=== PATIENT | female | born 1940 | race Caucasian/White ===

== ENCOUNTER 2016-11-18 22:59 | Emergency (ER) | payer MEDICARE ==
[2016-11-18] MEDS ORDERED: fentaNYL* 50 MCG/ML 2 ML VIAL (100 MCG VIAL) ONE (23:17)
[2016-11-18] MEDS ORDERED: HYDROmorphone INJ* 1 MG/ML CARPUJECT SYRINGE IV SLOW PU ONE (23:47)
[2016-11-19] MEDS ORDERED: HYDROmorphone INJ* 1 MG/ML CARPUJECT SYRINGE IV SLOW PU ONE (00:45)
[2016-11-19] MEDS ORDERED: HYDROcodone/ACETAMIN 5-325 MG* 1 TAB PO ONE ×2 (00:46→00:56)
--- NOTE | 2016-11-19 01:01 | ED ---
I, Jacek,Michael, scribed for Porfirio Summers MD on 11/18/16 at 2318 . Upper Extremity Pain - HPI Summary HPI Summary: This 76 y/o male presents to ED for acute RUE arm and wrist pain after a mechanical fall this evening. She was putting her boots when she lost her balance and fell backward. Obvious deformity is noted at right wrist. Any movement and palpation make the pain worse. Pt is right handed. PMHx includes EtOH dependence, DM type II, asthma, depression, and migraine. Pt lives with . - History of Current Complaint Chief Complaint: ED Stated Complaint: FALL/WRIST AND ARM INJURY Time Seen by Provider: 11/18/16 23:08 Hx Obtained From: Patient Mechanism Of Injury: Twisted Onset/Duration: Started Hours Ago, Still Present Timing: Constant Severity Initially: Severe Severity Currently: Severe Pain Location: Wrist - right Character: Sharp Aggravating Factor(s): Movement Alleviating Factor(s): Rest Associated Signs & Symptoms: Positive: Other - obvious deformity - Allergies/Home Medications Allergies/Adverse Reactions: Allergies Allergy/AdvReac Type Severity Reaction Status Date / Time Adhesive Tape Allergy Unknown Verified 07/20/16 02:46 Reaction Details Flu Virus Vaccine Allergy Rash And Verified 07/20/16 02:46 Itching Latex Allergy Rash Verified 07/20/16 02:46 Morphine Allergy Hives Verified 07/20/16 02:46 Sulfa Antibiotics Allergy hive Verified 07/20/16 02:46 Hydrocodone AdvReac HALLUCINATIONS, Verified 07/20/16 02:46 VERY UNPLEASANT FEELING ENVIRONMENTAL/SEASONAL Allergy SNEEZING, Uncoded 07/20/16 02:46 ALLERGY WATERY ITCHY EYES, RUNNY NOSE PMH/Surg Hx/FS Hx/Imm Hx Endocrine/Hematology History: Reports: Hx Diabetes Denies: Hx Anemia Cardiovascular History: Reports: Hx Angina, Hx Hypercholesterolemia Denies: Hx Hypertension, Hx Myocardial Infarction Respiratory History: Reports: Hx Asthma GI History: Reports: Hx Gastroesophageal Reflux Disease, Hx Ulcer Denies: Hx Jaundice Musculoskeletal History: Reports: Hx Arthritis, Hx Back Problems, Other Musculoskeletal History - total knee replacement scheduled for week of Nov 13 Denies: Hx Rheumatoid Arthritis, Hx Osteoporosis, Hx Scoliosis Sensory History: Reports: Hx Cataracts, Hx Contacts or Glasses Denies: Hx Hearing Aid Opthamlomology History: Reports: Hx Cataracts, Hx Contacts or Glasses Neurological History: Reports: Hx Migraine - CONTROL WITH MEDS, Hx Transient Ischemic Attacks (TIA) Denies: Hx Headaches, Hx Seizures, Other Neuro Impairments/Disorders Psychiatric History: Reports: Hx Anxiety - CONTROL WITH MEDS, Hx Depression - CONTROL WITH MEDS, Hx Substance Abuse - ALCOHOL, NONE SINCE 2013 - Cancer History Cancer Type, Location and Year: breast Hx Chemotherapy: Yes - Surgical History Surgery Procedure, Year, and Place: 1989 & 1999 BILATERAL MASTECTOMY, [place]. 2011 BILATERAL CATARACT EXTRACTION WITH IOL IMPLANT, [place]. 1969 BILATERAL TUBAL LIGATION, [place]. 1983 HYSTERECTOMY, [place]. 2005 LEFT HIP REPLACEMENT, [place] Hx Anesthesia Reactions: No Infectious Disease History: No Infectious Disease History: Denies: Traveled Outside the in Last 30 Days - Family History Known Family History: Positive: Diabetes, Other - CVA - Social History Alcohol Use: None Hx Substance Use: No Substance Use Type: Reports: None Substance Use Comment - Amount & Last Used: 2012 Hx Tobacco Use: Yes Smoking Status (MU): Former Smoker Type: Cigarettes Amount Used/How Often: SMOKED IN THE 1959'S WHILE IN COLLEGE Have You Smoked in the Last Year: No Review of Systems Negative: Fever Positive: Other - right wrist pain s/p mechanical fall Negative: Anxious, Depressed All Other Systems Reviewed And Are Negative: Yes Physical Exam - Summary Physical Exam Summary: General: Comfortable, pleasant, alert HEENT: Moist mucosa Neck: soft, supple, no adenopathy, no edema Heart: S1, S2, RRR, no murmurs, rubs, or gallops Lungs: Clear to auscultation, breathing comfortable, no wheezes or rales Abdominal: Soft, flat, nontender Extremities: No edema, no calf tenderness. No tenderness at right clavical, proximal humerus, and elbow. Deformity at distal right wrist. Russian Teacher causes pain. Pulse is intact. Negative cyanosis. Neuro: Alert and oriented x 3 Psych: Logical, coherent Triage Information Reviewed: Yes Vital Signs On Initial Exam: Initial Vitals Temp Pulse Resp BP Pulse Ox 98.2 F 96 16 178/65 97 11/18/16 23:02 11/18/16 23:02 11/18/16 23:02 11/18/16 23:02 11/18/16 23:02 Vital Signs Reviewed: Yes Procedures - Splinting Location: right wrist Splint: ulnar Pre-Proc Neuro Vasc Exam: normal Post-Proc Neuro Vasc Exam: normal Diagnostics - Vital Signs Vital Signs Temp Pulse Resp BP Pulse Ox 11/18/16 23:02 98.2 F 96 16 178/65 97 - Laboratory Lab Statement: Any lab studies that have been ordered have been reviewed, and results considered in the medical decision making process. - Radiology Right wrist Xray Interpretation: Positive (See Comments) - Distal radial and ulnar fx. Radiology Interpretation Completed By: ED Physician Re-Evaluation - Re-Evaluation First Eval Re-Evaluation Time: 00:30 Change: Improved Comment: MD in room to update pt on X-ray imagings. Plan of care involving splinting and outpatient f/u with ortho is discussed. Pt and daughter present at bedside are agreeable. Course/Dx - Course Assessment/Plan: Simple mecahical fall. FOOSH injury of right wrist. She has both distal radial and distal ulnar fx, but neurovascularly intact at RUE. She was splinted with orthoglass and sugar tongue. She will f/u with her own orthopedic doctor. - Diagnoses Provider Diagnoses: Fracture of right distal radius, Right distal ulnar fracture Discharge - Discharge Plan Condition: Fair Disposition: HOME Prescriptions: HYDROcodone/ACETAMIN 5-325 MG* [[place] 5-325 TAB*] 1 tab PO Q6H PRN #12 tab MDD 4 PRN Reason: Pain Patient Education Materials: Wrist Fracture in Adults (ED), Splint Care (ED) Referrals: Wil Little MD [Medical Doctor] - The documentation as recorded by the Jacek blanco Soohyun accurately reflects the service I personally performed and the decisions made by , Porfirio Summers MD.
[2016-11-19 01:37] VITALS: BP 142/72
--- NOTE | 2016-11-19 07:51 | RAD ---
HISTORY: Fall, wrist deformity, right wrist COMPARISONS: None VIEWS: 3, Frontal, lateral, and oblique views of the right wrist FINDINGS: BONE DENSITY: Normal. BONES: There is a comminuted and slightly dorsally angulated fracture of the distal radial metaphysis with articular extension. There is a nondisplaced fracture of the styloid process of the ulna JOINTS: There is osteoporosis of the first CMC and MCP and scaphoid-trapezium articulations. ALIGNMENT: There is no dislocation. SOFT TISSUES: Unremarkable. OTHER FINDINGS: None. IMPRESSION: COMMINUTED SLIGHTLY DORSALLY ANGULATED FRACTURE OF THE DISTAL RADIAL METAPHYSIS. NONDISPLACED FRACTURE OF THE STYLOID PROCESS OF THE ULNA
== END 2016-11-19 01:25 | disposition home or self-care (01) ==
LOC: ED 22:59
DX: S52.501A Unspecified fracture of the lower end of right radius, initial encounter for closed fracture (principal); S52.601A Unspecified fracture of lower end of right ulna, initial encounter for closed fracture; M25.531 Pain in right wrist; Z87.891 Personal history of nicotine dependence; W19.XXXA Unspecified fall, initial encounter; Y93.9 Activity, unspecified; Y92.9 Unspecified place or not applicable
CPT/HCPCS: 96374; 96375; 99283; J1170; J3010

== ENCOUNTER 2016-11-27 08:05 | Day surgery (SDC) | payer MEDICARE ==
[~2016-11-27 08:05] MED LIST: Buffered Lidocaine 1% SYR 3ML* 3 ML/SYR SYRINGE INTRADERM ONE; Famotidine IV* 10 MG/ML 2 ML (20 mg) IV ONE
[2016-11-27] MEDS ORDERED: Famotidine IV* 10 MG/ML 2 ML (20 mg) ONE (08:16)
[2016-11-27] MEDS ORDERED: ceFAZolin 2 GM PREMIX (*) 2 GM/50 ML BAG IVPB ONE (08:16)
[2016-11-27] MEDS ORDERED: Lidocaine 1% INJ* 10 MG/ML 30 ML SDV ONE (08:52)
[2016-11-27] MEDS ORDERED: Propofol* 10 MG/ML 20 ML BTL IV PUSH ONE ×2 (08:53→09:43)
[2016-11-27] MEDS ORDERED: fentaNYL* 50 MCG/ML 2 ML VIAL (100 MCG VIAL) ONE ×2 (08:53→10:41)
[2016-11-27] MEDS ORDERED: Midazolam* 1 MG/ML 2 ML VIAL (2 MG) ONE (08:53)
[2016-11-27] MEDS ORDERED: KETAMINE HCL* 50 MG/ML 10 ML VIAL ONE (08:54)
[2016-11-27] MEDS ORDERED: Ketorolac INJ* 30 MG/ML 1 ML VIAL ONE (08:54)
[2016-11-27] MEDS ORDERED: Bupivacaine 0.5% SDV PF* 30 ML VIAL ONE (09:05)
[2016-11-27] MEDS ORDERED: DiMENhydriNATE IV* 50 MG/ML VIAL IV PUSH PRN (09:52)
[2016-11-27] MEDS: fentaNYL* 50 MCG/ML 2 ML VIAL (100 MCG VIAL) IV PRN ×2 (10:42→10:52)
[2016-11-27 11:32] VITALS: BP 155/76
--- NOTE | 2016-11-28 00:39 | OP ---
DATE OF OPERATION: 11/27/16 [facility] DATE OF : 42 SURGEON: Dr. Whalen. SKEIN MERCERIZING MACHINE OPERATOR: LOU Slater ANESTHESIOLOGIST: Rahul Romero MD ANESTHESIA: General. PRE-OP DIAGNOSIS: Right distal radius fracture. POST-OP DIAGNOSIS: Right distal radius fracture. OPERATIVE PROCEDURE: Open reduction internal fixation of the right distal radius. ESTIMATED BLOOD LOSS: Zero. TOURNIQUET TIME: About 30 minutes. INDICATIONS FOR PROCEDURE: Lola is a 76-year-old woman who fell onto her outstretched right hand. She suffered a fracture of the distal radius. There is apex volar angulation and the options of casting and surgery were discussed with the patient. She has opted for surgery. The surgical procedure, risks, and benefits were explained to her prior to the procedure. DESCRIPTION OF PROCEDURE: The patient was brought to the operating room, was given general anesthetic and placed in a supine position on the operating room table with the tourniquet around her right upper arm. The skin of her right upper extremity was prepped and dapped in the usual sterile fashion. The area of the incision was infiltrated with 10 cc of Marcaine 0.5% plain. A longitudinal incision was made centered over the FCR tendon and we dissected sharply through the superficial and deep portions of the tendon sheath. The FPL muscle was then retracted and then the pronator quadratus was incised and subperiosteally dissected off of the distal radius. The fracture fragments were reduced and then a plate from the Synthes 2.4 variable angle set was secured with one proximal screw. The hardware and fracture fragments were checked on the C-arm in the AP and lateral views and found to be in good position, so 4 distal screws were placed and then two additional proximal screws. All of the hardware was checked on the C-arm in the AP and lateral views and found to be in satisfactory position. The wound was copiously irrigated with saline. The pronator quadratus was repaired over the plate and then the deep portion of the FCR tendon sheath was repaired with 2-0 Polysorb suture. The skin was closed with 4-0 nylon suture and then the wound was dressed with Xeroform, 4x 4, Webril, and a volar splint in some flexion. The patient also has an ulnar styloid fracture which remained nondisplaced. The patient tolerated the procedure well and was brought to the recovery room in good condition after awakening from general anesthesia. [id number]/[facility] #: [id number] [place]
--- NOTE | 2016-11-28 12:11 | RAD ---
CPT II Codes: 6045F INDICATION: Right distal radius fracture TECHNIQUE: Intraoperative fluoroscopy was provided during plate and screw fixation of a distal radius fracture. FINDINGS: 2 spot films depict plate and screw fixation of a distal radius fracture. Fluoroscopy time: 27 seconds IMPRESSION: As above.
== END 2016-11-27 12:01 | disposition home or self-care (01) ==
LOC: OREAST 08:05
PROVIDERS: ATTEND Orthopaedic Surgery
DX: S52.551A Other extraarticular fracture of lower end of right radius, initial encounter for closed fracture (principal); E11.8 Type 2 diabetes mellitus with unspecified complications; Z79.4 Long term (current) use of insulin; J45.909 Unspecified asthma, uncomplicated; Z68.36 Body mass index [BMI] 36.0-36.9, adult; Z87.891 Personal history of nicotine dependence; W19.XXXA Unspecified fall, initial encounter; Y92.9 Unspecified place or not applicable
CPT/HCPCS: 76000; C1713; C1776; J0690; J1885; J2250; J2704; J3010

== ENCOUNTER 2018-03-13 10:25 | Inpatient (IN) | payer MEDICARE ==
--- NOTE | 2018-03-08 11:57 | HP ---
AMENDED REPORT NOW INCLUDES COSIGNER DESIGNATION - ESIGNED BEFORE ADJUSTMENT HISTORY AND PHYSICAL: DATE OF ADMISSION/DATE OF SURGERY: 03/13/18 PRIMARY CARE PHYSICIAN: Dr. Mary. SURGEON: Anastasia Patel MD * (DICTATED BY LOU TALAMANTES) PROCEDURE: Right total hip arthroplasty. CHIEF COMPLAINT: Right hip pain. HISTORY OF PRESENT ILLNESS: Ms. Srinivasan is a 78-year-old female with complaints of right hip pain. She has failed conservative management and elected to proceed with a right total hip arthroplasty, which is scheduled for 03/13/[address] Patel. PAST MEDICAL HISTORY: 1. Diabetes. 2. COPD. 3. Asthma. 4. GERD. 5. Depression. 6. Anxiety. 7. History of breast cancer. PAST SURGICAL HISTORY: 1. Hysterectomy. 2. Tubal ligation. 3. Bilateral mastectomies. 4. Left total hip arthroplasty. 5. Cataract removal. 6. ORIF of the right wrist. CURRENT MEDICATIONS: 1. Meloxicam daily. 2. Glipizide 2.5 mg in the morning. 3. Atorvastatin calcium 20 mg q.h.s. 4. Buspirone 7.5 mg daily. 5. Citalopram hydrobromide 40 mg daily. 6. Omeprazole 40 mg twice a day. 7. Montelukast sodium 10 mg daily. 8. Ventolin inhaler as needed. 9. Fish oil. 10. Sumatriptan nasal spray. 11. Calcium with vitamin D. 12. Metformin 500 mg twice a day. 13. [place]-3. 14. Vitamin B12. ALLERGIES: 1. SULFA ANTIBIOTICS. 2. LATEX. 3. TAPE. 4. FLUZONE. 5. MORPHINE, which causes hives. 6. HYDROCODONE. She does not like the way it makes her feel. FAMILY HISTORY: Diabetes, stroke, and COPD. SOCIAL HISTORY: She is a 78-year-old female. She lives with her . She does not smoke or use drugs. 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 REVIEW OF SYSTEMS: A complete 14-point review of systems was reviewed with the patient and was positive for diabetes, GERD, COPD, asthma, some occasional chest pain and shortness of breath. She denies history of DVT, PE, hepatitis, or HIV. PHYSICAL EXAMINATION GENERAL: She is well developed, well nourished, in no acute distress. VITAL SIGNS: She stands 6 feet 3 inches tall, weighs 216 pounds. Her blood pressure is 126/60, heart rate is 82. HEENT: Normocephalic, atraumatic. NECK: Supple. No palpable lymph nodes. PULMONARY: The lungs are clear to auscultation bilaterally. CARDIAC: Regular rate and rhythm. Strong S1 and S2. ABDOMEN: Soft, nontender, nondistended. MUSCULOSKELETAL: Right lower extremity, the skin is intact. There are no open wounds or abrasions. She walks with an antalgic type gait favoring her right hip. She has decreased internal and external rotation of the right hip. She has 2+ dorsalis pedis pulses, intact sensation and her lower extremity muscle group strengths are intact at 5/5. NEUROLOGICAL: She is alert and oriented x3. Cranial nerves II through XII are intact. ASSESSMENT AND PLAN: Ms. Srinivasan is a 78-year-old female with complaints of right hip pain secondary to end-stage osteoarthritis. She has failed conservative management and elected to proceed with a right total hip arthroplasty, which is scheduled for 03/13/[address] Patel discussed the risks and benefits of the surgery at today's visit and all of her questions were answered. She will follow up with Dr. Patel 2 weeks after the surgery. LOU TALAMANTES [id number]/[facility] #: [id number] [place]AS[place]
[2018-03-15] MEDS ORDERED: ceFAZolin 2 GM PREMIX in ORs 2 GM/50 ML BAG IVPB ONE (08:59)
[2018-03-15] MEDS ORDERED: Lidocaine 1%* 5 ML VIAL ONE (09:16)
[2018-03-15] MEDS ORDERED: Bupivacaine 0.5% SDV PF* 30ML VIAL ONE (09:16)
[2018-03-15] MEDS ORDERED: fentaNYL* 50 MCG/ML 2 ML VIAL (100 MCG VIAL) ONE ×3 (10:01→12:43)
[2018-03-15] MEDS ORDERED: KETAMINE HCL* 50 MG/ML 10 ML VIAL ONE (10:02)
[2018-03-15] MEDS ORDERED: Midazolam* 1 MG/ML 5 ML VIAL (5 MG) ONE (10:02)
[2018-03-15] MEDS ORDERED: Bupivacaine 0.25% SDV* 30 ML ONE ×2 (11:23→15:01)
[2018-03-15] MEDS ORDERED: Propofol* 10 MG/ML 20 ML BTL IV PUSH ONE (11:30)
[2018-03-15] MEDS ORDERED: Lidocaine 2% PF * 5 ML VIAL ONE (11:30)
[2018-03-15] MEDS ORDERED: Ketorolac INJ* 30 MG/ML 1 ML VIAL ONE (11:30)
[2018-03-15] MEDS ORDERED: DiMENhydriNATE IV* 50 MG/ML VIAL ONE (11:30)
[2018-03-15] MEDS ORDERED: Dexamethasone IV* 4 MG/ML 1 ML (4 MG) ONE (11:30)
[2018-03-15] MEDS ORDERED: Labetalol IV* 5 MG/ML 20 ML VIAL ONE (11:31)
[2018-03-15] MEDS ORDERED: HYDROmorphone INJ* 0.5 MG/0.5 ML SYRINGE ONE (14:53)
--- NOTE | 2018-07-25 13:41 | HP ---
AMENDED REPORT NOW INCLUDES DESIGNATED COSIGNER HISTORY AND PHYSICAL: DATE OF SURGERY/ADMISSION: 08/05/18 SURGEON: Anastasia Patel MD.* (DICTATED BY LOU TALAMANTES) PRIMARY CARE PHYSICIAN: Casey Mary MD PROCEDURE: Left total knee arthroplasty. CHIEF COMPLAINT: Left knee pain. HISTORY OF PRESENT ILLNESS: Ms. Srinivasan is a 78-year-old female with end- stage osteoarthritis of the left knee. She has failed conservative treatment and elected to proceed with a left total knee arthroplasty, which is scheduled for 08/05/[address] Patel. PAST MEDICAL HISTORY: Breast cancer, diabetes, COPD, depression, anxiety, and GERD. PAST SURGICAL HISTORY: Right total knee arthroplasty, bilateral mastectomies, left total hip arthroplasty, cataract excision, hysterectomy, ORIF of the left elbow, ORIF right wrist. CURRENT MEDICATIONS: 1. Glipizide ER 5 mg every morning. 2. Atorvastatin calcium 20 mg q.h.s. 3. Buspirone 7.5 mg daily. 4. Citalopram hydrobromide 40 mg daily. 5. Omeprazole 40 mg twice a day. 6. Montelukast sodium 10 mg daily. 7. Ventolin HFA 2 puffs as needed. 8. Fish oil. 9. Sumatriptan. 10. Calcium with vitamin D. 11. Lantus. 12. Advair HFA 2 puffs twice a day. 13. Wellbutrin 100 mg daily. 14. Cholecalciferol. ALLERGIES: SULFA ANTIBIOTICS and MORPHINE causing hives, LATEX TAPE, HYDROCODONE causing hallucinations and FLUZONE. FAMILY HISTORY: Diabetes and strokes. SOCIAL HISTORY: She is a 78-year-old female. She lives with her . She does not smoke, use drugs or alcohol. REVIEW OF SYSTEMS: A complete 14-point review of systems was reviewed with the patient. It is positive for GERD, diabetes, and shortness of breath and COPD. She denies history of DVT, PE, hepatitis, HIV or anesthesia problems. PHYSICAL EXAMINATION GENERAL: She is well developed, well nourished, in no acute distress. VITAL SIGNS: She stands 63 inches tall, weighs 206 pounds. Her blood pressure is 119/71, her heart rate is 82. HEENT: Normocephalic, atraumatic. NECK: Supple. No palpable lymph nodes. PULMONARY: The lungs are clear to auscultation bilaterally. CARDIO: Regular rate and rhythm. Strong S1, S2. ABDOMEN: Soft, nontender, and nondistended. MUSCULOSKELETAL: Left lower extremity, the skin is intact. There are no open wounds or abrasions. There is a moderate effusion of the left knee. She has some tenderness over the medial and lateral joint lines. Range of motion is 10 to 120 degrees of flexion with severe patellofemoral crepitus. She has a 2+ dorsalis pedis pulse. Intact sensation. Her lower extremities muscle group strengths are intact at 5/5. NEUROLOGICAL: She is alert and oriented x3. ASSESSMENT AND PLAN: Ms. Srinivasan is a 78-year-old female with end-stage osteoarthritis of the left knee. She has failed conservative treatment and elected to proceed with a left total knee arthroplasty, which is scheduled for 08/05/[address] Patel discussed the risks and benefits of the surgery at today's visit and all of her questions were answered. She will follow up with Dr. Patel 2 weeks after the surgery. LOU TALAMANTES [id number]/[facility] #: [id number] [place]
[2018-08-04] MEDS ORDERED: Buffered Lidocaine 0.9% SYRIN* 5 ML/SYR SYRINGE INTRADERM ONE (10:47)
[2018-08-05] MEDS ORDERED: Tranexamic Acid 1,000 MG in NS 0.9% 50 ML* (outpatient use) IV SCH ×2
[2018-08-05] MEDS ORDERED: Famotidine IV* 10 MG/ML 2 ML (20 mg) IV ONE (06:00)
[2018-08-05] MEDS ORDERED: Bupivacaine 0.5% SDV PF* 30ML VIAL ONE ×2 (07:19→13:42)
[2018-08-05] MEDS ORDERED: Morphine VIAL* 10 MG/ML 1 ML VIAL ONE ×3 (07:21→09:26)
[2018-08-05] MEDS ORDERED: ceFAZolin 2 GM PREMIX in ORs 2 GM/50 ML BAG IVPB ONE (07:21)
--- OUTSIDE RECORDS SUMMARY | 2018-08-05 07:36 | XMS REPORT ---
:1940 External Reference #:[id number] Author Organization [employer] Address [address] [place] [address] [place] [address] Phone [phone] Care Team Providers Name Role Phone Casey Mary MD Primary Care Physician Unavailable Payers Type Date Identification Payment Subscriber Numbers Provider Health Maintenance Effective: Policy Number: Medicare Antonino Masters (O) 10/07/2013 [id number] [facility] Number: [id number] [address] [address] PayID: [id number] JUAN Jarrell [address] Problems Date Description Provider Status Onset: 10/10/2015 Localized, primary osteoarthritis Anastasia Patel M.D. Active Onset: 03/12/2016 Aftercare following joint Anastasia Patel M.D. Active replacement surgery Onset: 02/14/2018 Localized, primary osteoarthritis Anastasia Patel M.D. Active of the pelvic region and thigh Onset: 03/14/2018 Oth disp fx of lower end of right Misa Terry NP Active humerus, init for clos fx Onset: 03/14/2018 Long-term current use of insulin Misa Terry NP Active Onset: 03/14/2018 Type 2 diabetes mellitus Misa Terry NP Active Onset: 03/26/2018 Unsp fx upper end of l humerus, Wil Cooper MD Active subs for fx w scooter [place] Family History Date Family Member(s) Problem(s) Comments [...] 02/14/2018 Hydrocodone active 02/14/2018 Influenza Virus Vaccine, active Inactivated A-Guyuyauq-64-2007 (H1N1) Strain / Influenza Virus Vaccine, Inactivated K-Olwhnso-932-2007 (H3N2) (C-Hivuozdy-71-Like) Strain / Influenza Virus Vaccine, Inactivated K-Yjwmkyq-2 Strain 07/24/2018 Trazodone Hallucinations active Medications Medication Date Status Form Strength Qnty SIG Indications Ordering Provider Glipizide ER Active Tablets 5mg 1 by mouth Unknown /0000 ER 24HR every morning, and two tabs in the pm Atorvastatin Active Tablets 20mg take 1 Unknown Calcium /0000 tablet at bedtime Buspirone HCL Active Tablets 10mg 1 by mouth Unknown /0000 twice a day Citalopram Active Tablets 40mg 1 by mouth [...] /0000 tablet daily Cholecalciferol Active Unknown /0000 Metformin HCL Active Tablets 500mg 1 by mouth Unknown /0000 twice a day Tramadol HCL 02/28 Hx Tablets 50mg 30tab 1 tablet by M16.11 s mouth every Jorge, - 6 hours as M.D. 05/24 needed pain Lortab 11/22 Hx Tablets 5-325mg 30tab 1-2 tab by s mouth every Whalen, - 4-6 hours as M.D. 02/13 needed pain /2017 Lortab 06/18 Hx Tablets 5-325mg 90tab 1 or 2 M25.562 s tablets q8 Jorge, - hours as M.D. 02/13 needed pain Meloxicam 04/30 Hx Tablets 7.5mg 30tab take 1 tab s by mouth Bordoni, - qdaily with LOCOMOTIVE FIRER 07/24 [place] 12/16 Hx Tablets 5-325mg 60tab 1-2 by mouth s every 4 to 6 Bordoni, - hours as LOCOMOTIVE FIRER 03/11 Tramadol HCL 12/16 Hx Tablets 50mg 60tab 1-2 tablets s every 6 Sidney, - hours as M.D. 01/25 Percocet Hx Tablets 5-325mg 60tab take 1-2 s pills every Fady, - 6 hours as M.D. 01/25 needed Coumadin 12/02 Hx Tablets 2mg 45tab 1 by mouth s daily post Bordoni, - operatively LOCOMOTIVE [employer]ER 03/11 or directed by megan/. do not take this medication prior to surgery Colace 12/02 Hx Capsules 100mg 90cap 1 by mouth 7. s up to 3 Bordoni, - times a day LOCOMOTIVE FIRER 03/11 as needed for constipation . Comode 10/19 Hx comode- 7 dispense Bordoni, - 1m17.11 LOCOMOTIVE FIRER 06/17 Elevated Toilet 10/19 Hx dispense 2 7. m17.11 Bordoni, - LOCOMOTIVE FIRER 06/17 Indomethacin ER 12/30 Hx Capsules 75mg 60cap 1 by mouth Dalia /2015 ER s three times Whalen, - a [...] Imitrex Hx Solution 5mg/Act as directed Unknown /0000 - 02/12 Ramipril Hx Capsules 5mg 1 by mouth Unknown /0000 every day - 06/17 Trulicity Hx Solution 0.75mg/0. sc weekly Unknown /0000 Pen-Injec 5ML - t 05/24 Medications Administered in Office Medication Date Status Form Strength Qnty SIG Indications Ordering Provider Inj, Administered Injection Lj Cazares Regadenoson, Kevan Knox M.D. 0.1 MG Technetium TC Administered Injection Lj Cazares 99M 018 [place] Knox Tetrofosmin, Per Unit Dose Up To 40 Millicuries Depomedrol Administered Injection Dalia 40MG Kevan Whalen M.D. Depomedrol Administered Injection Dalia 40MG 017 Lurdes Whalen Synvisc Or Administered Injection Anastasia Synvisc-One Liu Patel M.D. Injection 1 MG Synvisc Or Administered Injection Anastasia Synvisc-One Liu Patel M.D. Injection 1 MG Synvisc Or Administered Injection Anastasia Synvisc-One 017 Lurdes Patel Injection 1 MG Depomedrol Administered Injection Anastasia 40MG 016 [place] Patel Depomedrol Administered Injection Anastasia 40MG 016 Lurdes aPtel Depomedrol Administered Injection Dalia 80MG 015 Lurdes Whalen Vital Signs Date Vital Result Comment 07/25/2018 Height 63 inches 5'3" Weight 206.00 lb BP Systolic 119 mmHg BP Diastolic 71 mmHg Respiratory Rate 16 /min Body Temperature 97.4 F Pain Level 5 BMI (Body Mass Index) 36.5 kg/m2 06/27/2018 Heart Rate 96 /min BP Systolic Sitting 148 mmHg BP Diastolic Sitting 86 mmHg Respiratory Rate 18 /min Body Temperature 97.6 F Pain Level 7 05/21/2018 Height 63 inches 5'3" Weight 220.00 lb Heart Rate 72 /min Respiratory Rate 18 /min BMI (Body Mass Index) 39.0 kg/m2 05/01/2018 Height 63 inches 5'3" Heart Rate 85 /min Respiratory Rate 18 /min Body Temperature 98.6 F Pain Level 5 04/21/2018 Height 63 inches 5'3" Pain Level 5 04/04/2018 Height 63 inches 5'3" Heart Rate 90 /min Respiratory Rate 16 /min Body Temperature 98.4 F Pain Level 5 03/26/2018 Height 63 inches 5'3" Heart Rate 89 /min Respiratory Rate 16 /min Body Temperature 97.8 F Pain Level 6 02/28/2018 Height 63 inches 5'3" Weight 216.00 [...] Test Date Test Result H/L Range Note Inr/Protime 07/25/2018 Inr 0.98 0.77-1.02 1 Laboratory test finding 07/25/2018 Partial Thrombo 29.8 seconds 26.0- 36.3 1 Time PTT Type & Screen 07/25/2018 Patient Blood Type O Positive 1 Antibody Screen NEGATIVE 1 Urinalysis Profile 07/25/2018 Urine Color Yellow 1 Urine Appearance Clear 1 Urine Specific Devol 1.011 1.010-1.030 1 Urine pH 5.0 5-9 1 Urine Urobilinogen Negative Negative 1 Urine Ketones Negative Negative 1 Urine Protein Negative Negative 1 Urine Leukocytes Negative Negative 1 Urine Blood Negative Negative 1 Urine Nitrite Negative Negative 1 Urine Bilirubin Negative Negative 1 Urine Glucose Negative Negative 1 Urine Culture And Sensitivities 07/25/2018 Urine Culture SEE RESULT BELOW 1, 2 Urinalysis Profile 02/28/2018 Urine Color Straw Urine Appearance Clear Urine Specific Devol 1.006 Low 1.010-1.030 Urine pH 5.0 5-9 Urine Urobilinogen Negative Negative Urine Ketones Negative Negative Urine Protein Negative Negative Urine Leukocytes Negative Negative Urine Blood Negative Negative Urine Nitrite Negative Negative Urine Bilirubin Negative Negative Urine Glucose Negative Negative CBC Auto Diff 02/28/2018 White Blood Count 8.5 10^3/uL 3.5-10.8 Red Blood Count 4.77 10^6/uL 4.0-5.4 Hemoglobin 13.5 g/dL 12.0-16.0 Hematocrit 41 % 35-47 Mean Corpuscular Volume 85 fL 80-97 Mean Corpuscular Hemoglobin 28 pg 27-31 Mean Corpuscular HGB Conc 33 g/dL 31-36 Red Cell Distribution Width 14 % 10.5-15 Platelet Count 228 10^3/uL 150-450 Mean Platelet Volume 8.1 um3 7.4-10.4 Abs Neutrophils 5.1 10^3/uL 1.5-7.7 Abs Lymphocytes 2.5 10^3/uL 1.0-4.8 Abs Monocytes 0.7 10^3/uL 0-0.8 Abs Eosinophils 0.2 10^3/uL 0-0.6 Abs Basophils 0.1 10^3/uL 0-0.2 Abs Nucleated RBC 0 10^3/uL Granulocyte % 59.2 % 38-83 Lymphocyte % 29.2 % 25-47 Monocyte % 8.4 % High 0-7 Eosinophil % 2.2 % 0-6 Basophil % 1.0 % 0-2 Nucleated Red Blood Cells % 0 Comp Metabolic Panel 02/28/2018 Sodium 136 mmol/L Low 139-145 Potassium 4.0 mmol/L 3.5-5.0 Chloride 102 mmol/L 101-111 Co2 Carbon Dioxide 24 mmol/L 22-32 Anion Gap 10 mmol/L 2-11 Glucose 126 mg/dL High 70-100 Blood Urea Nitrogen 19 mg/dL 6-24 Creatinine 0.78 mg/dL 0.51-0.95 BUN/Creatinine Ratio 24.4 High 8-20 Calcium 9.5 mg/dL 8.6-10.3 Total Protein 7.4 g/dL 6.4-8.9 Albumin 4.3 g/dL 3.2-5.2 Globulin 3.1 g/dL 2-4 Albumin/Globulin Ratio 1.4 1-3 Total Bilirubin 0.40 mg/dL 0.2-1.0 Alkaline Phosphatase 71 U/L 34-104 Alt 37 U/L 7-52 Ast 27 U/L 13-39 Egfr Non- 71.8 >60 Egfr 92.3 >60 3 Inr/Protime 02/28/2018 Inr 0.93 0.77-1.02 Laboratory test finding 02/28/2018 Partial Thrombo Time 32.4 seconds 26.0 -36.3 PTT Type & Screen 02/28/2018 Patient Blood Type O Positive Antibody Screen NEGATIVE Urine Culture And 02/28/2018 Urine Culture SEE RESULT BELOW 4 Sensitivities Laboratory test finding 11/27/2016 Point of Care 150 mg/dL High 74-106 5 Glucose CBC No Diff 12/02/2015 White Blood Count 7.9 10^3/uL 3.5-10.8 6 Red Blood Count 4.84 10^6/uL 4.0-5.4 6 Hemoglobin 12.8 g/dL 12.0-16.0 6 Hematocrit 40 % 35-47 6 Mean Corpuscular Volume 83 fL 80-97 6 Mean Corpuscular Hemoglobin 26 pg Low 27-31 6 Mean Corpuscular HGB Conc 32 g/dL 31-36 6 Red Cell Distribution Width 17 % High 10.5-15 6 Platelet Count 231 10^3/uL 150-450 6 Mean Platelet Volume 8 um3 7.4-10.4 6 Urinalysis Profile 12/02/2015 Urine Color Gabby 6 Urine Appearance Cloudy 6 Urine Specific Devol 1.021 1.010-1.030 6 Urine pH 5.0 5-9 6 Urine Urobilinogen Negative Negative 6 Urine Ketones Negative Negative 6 Urine Protein Negative Negative 6 Urine Leukocytes Negative Negative 6 Urine Blood Negative Negative 6 Urine Nitrite Negative Negative 6 Urine Bilirubin Negative Negative 6 Urine Glucose Negative Negative 6 Inr/Protime 12/02/2015 Inr 1.01 0.89-1.11 6 Laboratory test finding 12/02/2015 Partial Thrombo Time 33.0 seconds 26.0 -36.3 6, 7 PTT Comp Metabolic Panel 12/02/2015 Sodium 133 mmol/L 133-145 6 Potassium 4.4 mmol/L 3.5-5.0 6 Chloride 100 mmol/L Low 101-111 6 Co2 Carbon Dioxide 25 mmol/L 22-32 6 Anion Gap 8 mmol/L 2-11 6 Glucose 180 mg/dL High 70-100 6 Blood Urea Nitrogen 18 mg/dL 6-24 6 Creatinine 0.78 mg/dL 0.51-0.95 6 BUN/Creatinine Ratio 23.1 High 8-20 6 Calcium 9.6 mg/dL 8.6-10.3 6 Total Protein 7.4 g/dL 6.4-8.9 6 Albumin 4.2 g/dL 3.2-5.2 6 Globulin 3.2 g/dL 2-4 6 Albumin/Globulin Ratio 1.3 1-3 6 Total Bilirubin 0.60 mg/dL 0.2-1.0 6 Alkaline Phosphatase 74 U/L 34-104 6 Alt 23 U/L 7-52 6 Ast 21 U/L 13-39 6 Egfr Non- 72.4 >60 6 Egfr 93.1 >60 6, 8 Type & Screen 12/02/2015 Patient Blood Type O Positive 6 Antibody Screen NEGATIVE 6 Laboratory test 12/02/2015 Urine Culture And SEE RESULT 6, 9 finding Sensitivities BELOW Laboratory test 08/15/2015 Vitamin D Total 25(Oh) 22.6 ng/mL Low 30-50 finding Laboratory test 11/01/2014 Urine Random 109.89 mg/dL finding Creatinine Liver Function 11/01/2014 Direct Bilirubin 0.10 mg/dL 0.03-0.18 Panel Indirect Bilirubin 0.5 mg/dL 0.3-1.0 Lipid Profile (Trig/Chol/HDL) 11/01/2014 Triglycerides 89 mg/dL 10 Cholesterol 141 mg/dL 11 HDL Cholesterol 56.0 mg/dL 12 LDL Cholesterol 67 mg/dL 13 Comp Metabolic Panel 11/01/2014 Sodium 136 mmol/L [...] Egfr Non- 79.6 >60 Egfr 102.4 >60 14 CBC Auto Diff 11/01/2014 White Blood Count [...] Nucleated Red Blood Cells % 0.1 1 PAIN IN LEFT KNEE, EFFUSION, LEFT KNEE, UNILATERAL 2 SEE RESULT BELOW Name: LOLA MARTINS : [address]: Anastasia Patel MD Acct: [id number] Unit: [id number] AGE: 78 Location: [facility] Re07/25/18 SEX: F Status: REG REF SPEC: [id number] SHANELL: 07/25/18 [facility] [address]: Anastasia Patel MD REQ: [id number] RECD: 07/25/18 STATUS: COMP _ SOURCE: URINE SPDESC: ORDERED: Urine Culture QUERIES: Urine Source: Clean Catch Procedure Result Reported Site Urine Culture Final 07/26/18- 1411 ML No Growth (<1,000 CFU/mL) * - [facility] . END OF REPORT DEPARTMENT OF PATHOLOGY, [address] [place] [address] Cholo Hoffmann M.D. Director [facility] # [id number] 3 Because ethnic data is not always readily [...] 15-29 5 Kidney failure <15 (or dialysis) 4 SEE RESULT BELOW Name: ELIEZERLOLA : [address]: Anastasia Patel MD Acct: [id number] Unit: [id number] AGE: 78 Location: [facility] Re02/28/18 SEX: F Status: REG REF SPEC: [id number] SHANELL: 02/28/[address]: Anastasia Patel MD REQ: [id number] RECD: 02/28/18 STATUS: COMP _ SOURCE: URINE SPDESC: ORDERED: Urine Culture QUERIES: Urine Source: Clean Catch Procedure Result Reported Site Urine Culture Final 03/01/18- 1602 ML No growth of clinically significant organisms * ML - Main Lab . END OF REPORT DEPARTMENT OF PATHOLOGY, [address] [place] [address] Cholo Hoffmann M.D. Director [facility] # [id number] Supervisor Typesetting: [id number] ANNIE MARIA 6 12/12 7 AA 12/12 8 Because ethnic data is not always readily [...] 15-29 5 Kidney failure <15 (or dialysis) 9 SEE RESULT BELOW Name: LOLA MARTISN : [address]: Anastasia Patel MD Acct: [id number] Unit: [id number] AGE: 75 Location: [facility] Re12/02/15 SEX: F Status: REG REF SPEC: [id number] SHANELL: 12/02/15-1307 [facility] DR: Anastasia Patel MD REQ: [id number] RECD: 12/02/152 STATUS: COMP [facility] DR: Casey Mary MD _ SOURCE: URINE SPDESC: ORDERED: Urine Culture QUERIES: Urine Source: Clean Catch Procedure Result Reported Site Urine Culture Final 12/03/15- 1317 ML No Growth (<1,000 CFU/mL) * ML - MAIN LAB ([facility]) . END OF REPORT * ML=Testing performed at Main Lab DEPARTMENT OF PATHOLOGY, [address] [place] [address] Cholo Hoffmann M.D. Director [facility] # [id number] 10 Desirable <150 Borderline high 150-199 High 200-499 Very High >500 11 Desirable <200 Borderline high 200-239 High >239 12 Low <40 Desirable: 40-60 High: >60 13 Desirable <100 Near Optimal 100-129 Borderline high 130-159 High 160-189 Very High >189 14 Because ethnic data is not always readily [...] dialysis) Procedures Date CPT Code Description Status 07/24/2018 78299 Stress Test Completed 07/24/2018 61702 Myocardial Perfusion Imaging Tomographic (Spect) Completed Multiple Studies 05/01/2018 60267 Inject/Drain Joint/Bursa Small W/O US Completed 03/15/2018 39871 FX Supra/Transcondyle Humerus Open TX W/Intercondylar Completed Extension 03/15/2018 11103 FX Supra/Transcondyle Humerus Open TX W/Intercondylar Completed Extension 02/13/2017 06514 Inject/Drain Joint/Bursa Small W/O US Completed 11/27/2016 31799 Open TX Distal Radial Extra-Ar Completed 11/27/2016 20941 Open TX Distal Radial Extra-Ar Completed 11/12/2016 46050 Inject/Drain Joint/Bursa Major W/O US Completed 11/05/2016 79805 Inject/Drain Joint/Bursa Major W/O US Completed 10/29/2016 05678 Inject/Drain Joint/Bursa Major W/O US Completed 08/17/2016 12572 Inject/Drain Joint/Bursa Major W/O US Completed 07/20/2016 33125 EKG, Interpretation Only Completed 04/30/201698849 Inject/Drain Joint/Bursa Major W/O US Completed 12/13/2015 17595 TKR Total Knee Replacement Completed 12/13/2015 18964 TKR Total Knee Replacement Completed 11/07/2015 66255 Treadmill Interp/Report Only Completed 11/07/2015 83618 Stress Test Supervsn W/Out I/R Completed 12/30/201496285 Inject Tendon Sheath Or Ligament Aponeurosis Eg Plantar Completed Fascia 11/02/2014 27601 FX Ulna Proximal (Olecranon) Open TX W/Wo Fixation Completed 11/02/2014 25003 FX Ulna Proximal (Olecranon) Open TX W/Wo Fixation Completed 10/29/2014 53616 Rad Exam; Elbow, Comp Completed 10/29/2014 00302 Rad Shoulder Comp, Min. 2 Views Completed 08/11/2014 98622 Rad Exam; Wrist, Comp, Min 3 Views Completed 08/11/2014 16744 Rad Exam; Wrist, Comp, Min 3 Views Completed 08/04/2014 90167 Closed TX Metacarpal FX Single W/O Manipulation, Ea Completed Bone Encounters Type Date Location Provider CPT E/M Dx Office Visit 06/27/2018 [facility] Anastasia Patel M.D. 61043 M25.562 1:45p Of Asad M25.462 M17.12 Office Visit 03/31/2018 9:30a [facility] [place] [address] E11.8 Office Visit 03/21/2018 8:15a [facility] Mandy Nguyen D.O. 74447 S42.491A S42.202A E11.8 M16.11 Office Visit 03/14/2018 11:25a [facility] [place] Cooper 79292 S42.491A Asad LAWS Office Visit 03/14/2018 8:42a [facility] Misa 11841 S42.491A [facility] Frank blackwell NP S42.202A Z79.4 E11.9 Office Visit 02/14/2018 11:30a [facility] Anastasia Patel M.D. 25986 M16.11 Asad M25.551 Office Visit 02/13/2017 1:30p [facility] Dalia Whalen 25193 S52.551D Of Asad Chatman M18.11 M65.831 Office Visit 11/22/2016 1:30p [facility] Dalia Whalen 23491 S52.551A Of Asad Chatman Office Visit 07/20/2016 4:03p [facility] Jina Hernandez, 70893 J44.1 Assoc, Hospitalists Lurdes E11.9 Office Visit 06/18/2016 11:15a [facility] Anastasia Patel M.D. 37611 M25.562 C.M.AKaren M17.12 Z96.651 Office Visit 11/09/2015 11:00a [facility] Anast[facility] Patel M.D. 45293 R42 C.M.AKaren M17.11 M25.561 M25.461 Office Visit 11/07/2015 10:30a [facility]pc Stephen Lee M.D. 29365 I20.8 Hospitalists E11.9 R42 R06.02 Office Visit 10/10/2015 8:00a [facility] Anast[facility] Patel M.D. 36177 M17.11 C.M.AKaren M25.561 M25.461 Office Visit 10/29/2014 1:15p [facility] Anast[facility] Patel M.D. 10207 719.42 [facility] Plan of Care Future Appointment(s):08/15/2018 1:45 pm - Anastasia Patel M.D. at [facility]08/05/2018 9:30 am - Mykel Oneil PA-C at [facility]08/05/2018 9:30 am - JERE Brody at [facility]08/05/2018 9:30 am - Anastasia Patel M.D. at [facility]09/02/2018 2:00 pm - Wil Cooper MD at [facility]07/25/2018 - Anastasia Patel M.D.M25.562 Pain in left kneeFollow up:Follow up: 2 weeks after ckcdboqR32.462 Effusion, left kneeM17.12 Unilateral primary osteoarthritis, left knee
--- OUTSIDE RECORDS SUMMARY | 2018-08-05 07:37 | XMS REPORT ---
:1940 External Reference #:[id number] Author Organization [facility] Address [address] [facility] [address] [place] [address] [place] [address] Phone [phone] Care Team Providers Name Role Phone Casey Mary MD Primary Care Physician Unavailable Payers Type Date Identification Payment Subscriber Numbers Provider Health Maintenance Effective: Policy Number: Medicare Antonino Masters (O) 10/07/2013 [id number] [facility] [employer] Number: [id number] [address] [address] PayID: [id number] JUAN Jarrell [id number] Problems Date Description Provider Status Onset: 10/10/2015 [...] active 02/14/2018 Influenza Virus Vaccine, active Inactivated E-Qxoakzus-04-2007 (H1N1) Strain / Influenza Virus Vaccine, Inactivated Y-Gpnczlc-488-2007 (H3N2) (P-Ljhlzslo-79-Like) Strain / Influenza Virus Vaccine, Inactivated B-Fazlhzy-9 Strain 07/24/2018 Trazodone Hallucinations active Medications Medication [...] s by mouth Bordoni, - qdaily with POST ACUTE CARE NURSE PRACTITIONER 07/24 [place] 12/16 Hx Tablets 5-325mg 60tab 1-2 by mouth s every 4 to 6 Bordoni, - hours as POST ACUTE CARE NURSE PRACTITIONER 03/11 Tramadol HCL 12/16 Hx Tablets 50mg 60tab 1-2 tablets s every 6 Sidney, - hours as M.D. 01/25 Percocet Hx Tablets 5-325mg 60tab take 1-2 s pills every Fady, - 6 hours as M.D. 01/25 needed Coumadin 12/02 Hx Tablets 2mg 45tab 1 by mouth s daily post Bordoni, - operatively POST ACUTE CARE NURSE PRACTITIONER 03/11 or directed by megan/. do not take this medication prior to surgery Colace 12/02 Hx Capsules 100mg 90cap 1 by mouth 7. s up to 3 Bordoni, - times a day POST ACUTE CARE NURSE PRACTITIONER 03/11 as needed for constipation . Comode 10/19 Hx comode- 7 dispense Bordoni, - 1m17.11 POST ACUTE CARE NURSE PRACTITIONER 06/17 Elevated Toilet 10/19 Hx dispense 2 7. m17.11 Bordoni, - POST ACUTE CARE NURSE PRACTITIONER 06/17 Indomethacin ER 12/30 Hx Capsules 75mg [...] 02/13 Imitrex Hx Solution 5mg/Act as directed /0000 - 02/12 Ramipril Hx Capsules 5mg 1 by mouth Unknown /0000 every day - 06/17 Trulicity Hx Solution 0.75mg/0. sc weekly Unknown /0000 Pen-Injec 5ML - t 05/24 Medications Administered in Office Medication Date Status Form Strength Qnty SIG Indications Ordering Provider Inj, Administered Injection Lj D. Regadenoson, 018 Lurdes Knox 0.1 MG Technetium TC Administered Injection Lj D. 99M 018 Lurdes Knox Tetrofosmin, Per Unit Dose Up To 40 Millicuries Technetium TC Administered Injection Lj D. 99M 018 Lurdes Knox Tetrofosmin, Per Unit Dose Up To 40 Millicuries Technetium TC Administered Injection Lj D. 99M 018 Lurdes Knox Tetrofosmin, Per Unit Dose Up To 40 Millicuries Depomedrol Administered Injection Dalia 40MG 018 Lurdes Whalen Depomedrol 05/10/2 Administered Injection Dalia 40MG 017 Whalen, M.D. Synvisc Or Administered Injection Anastasia Synvisc-One Liu [...] 1 Urine Appearance Clear 1 Urine Specific Sultana 1.011 1.010-1.030 1 Urine pH 5.0 5-9 [...] Color Straw Urine Appearance Clear Urine Specific Sultana 1.006 Low 1.010-1.030 Urine pH 5.0 5-9 [...] 6 Urine Appearance Cloudy 6 Urine Specific Sultana 1.021 1.010-1.030 6 Urine pH 5.0 5-9 [...] [address]: Anastasia Patel MD Acct: [id number] Unit: [id number] AGE: 78 Location: PAT Re07/25/18 SEX: F Status: REG REF SPEC: [id number] SHANELL: 07/25/18-[address] [facility] [address]: Anastasia Patel MD REQ: [id number] RECD: 07/25/18 STATUS: COMP _ SOURCE: URINE SPDESC: ORDERED: Urine Culture QUERIES: Urine Source: Clean Catch Procedure Result Reported Site Urine Culture Final 07/26/18- 1411 ML No Growth (<1,000 CFU/mL) * ML - Main Lab . END OF REPORT DEPARTMENT OF PATHOLOGY, [address] [place] [address] Cholo Hoffmann M.D. Director [facility] # [id number] 3 Because ethnic data is not always [...] (or dialysis) 4 SEE RESULT BELOW Name: LOLA MARTINS : [address]: Anastasia Patel MD Acct: [id number] Unit: [id number] AGE: 78 Location: [facility] Re02/28/18 SEX: F Status: REG REF SPEC: [id number] SHANELL: 02/28/[address]: Anastasia Patel MD REQ: [id number] RECD: 02/28/18 STATUS: COMP _ SOURCE: URINE SPDESC: ORDERED: Urine Culture QUERIES: Urine Source: Clean Catch Procedure Result Reported Site Urine Culture Final 03/01/18- 1602 ML No growth of clinically significant organisms * - [facility] . END OF REPORT DEPARTMENT OF PATHOLOGY, [address] [place] [address] Cholo Hoffmann M.D. Director [facility] # [id number] 5 Twine Reeling Machine Operator: [id number] ANNIE MARIA 6 12/12 7 12/12 8 Because ethnic data is not [...] dialysis) 9 SEE RESULT BELOW Name: LOLA MARTINS : [address]: Anastasia Patel MD Acct: [id number] Unit: [id number] AGE: 75 Location: [facility] Re12/02/15 SEX: F Status: REG REF SPEC: [id number] SHANELL: 12/02/15-[address] [facility] [address]: Anastasia Patel MD REQ: [id number] RECD: 12/02/15 STATUS: ARNAUD PENA DR: Casey Mary MD _ SOURCE: URINE SPDESC: ORDERED: Urine Culture QUERIES: Urine Source: Clean Catch Procedure Result Reported Site Urine Culture Final 12/03/15- 1317 ML No Growth (<1,000 CFU/mL) * ML - MAIN LAB ([facility]) . END OF REPORT * ML=Testing performed at Main Lab DEPARTMENT OF PATHOLOGY, [address] [place] [address] Cholo Hoffmann M.D. Director [facility] # [id number] 10 Desirable <150 Borderline high 150-199 High [...] Procedures Date CPT Code Description Status 07/24/2018 97474 Treadmill Interp/Report Only Completed 07/24/2018 07830 Stress Test Supervsn W/Out I/R Completed 07/24/2018 06710 Stress Test Completed 05/01/2018 23887 Inject/Drain Joint/Bursa Small W/O US Completed 03/15/2018 86234 FX Supra/Transcondyle Humerus Open TX W/Intercondylar Completed Extension 03/15/2018 74225 FX Supra/Transcondyle Humerus Open TX W/Intercondylar Completed Extension 02/13/2017 91327 Inject/Drain Joint/Bursa Small W/O US Completed 11/27/2016 83754 Open TX Distal Radial Extra-Ar Completed 11/27/2016 95020 Open TX Distal Radial Extra-Ar Completed 11/12/2016 12496 Inject/Drain Joint/Bursa Major W/O US Completed 11/05/2016 08835 Inject/Drain Joint/Bursa Major W/O US Completed 10/29/2016 96319 Inject/Drain Joint/Bursa Major W/O US Completed 08/17/201640153 Inject/Drain Joint/Bursa Major W/O US Completed 07/20/2016 29921 EKG, Interpretation Only Completed 04/30/2016 64895 Inject/Drain Joint/Bursa Major W/O US Completed 12/13/2015 17744 TKR Total Knee Replacement Completed 12/13/2015 28376 TKR Total Knee Replacement Completed 11/07/2015 87116 Treadmill Interp/Report Only Completed 11/07/2015 23092 Stress Test Supervsn W/Out I/R Completed 12/30/2014 76854 Inject Tendon Sheath Or Ligament Aponeurosis Eg Plantar Completed Fascia 11/02/2014 65097 FX Ulna Proximal (Olecranon) Open TX W/Wo Fixation Completed 11/02/2014 87521 FX Ulna Proximal (Olecranon) Open TX W/Wo Fixation Completed 10/29/2014 35339 Rad Exam; Elbow, Comp Completed 10/29/2014 36961 Rad Shoulder Comp, Min. 2 Views Completed 08/11/2014 54846 Rad Exam; Wrist, Comp, Min 3 Views Completed 08/11/2014 95171 Rad Exam; Wrist, Comp, Min 3 Views Completed 08/04/2014 53056 Closed TX Metacarpal FX Single W/O Manipulation, Ea Completed Bone Encounters Type Date Location Provider CPT E/M Dx Office Visit 06/27/2018 [facility] Anastasia Patel M.D. 05928 M25.562 1:45p Of Asad M25.462 M17.12 Office Visit 03/31/2018 9:30a [facility] [place] [address] E11.8 Office Visit 03/21/2018 8:15a [facility] Mandy Nguyen D.O. 26630 S42.491A S42.202A E11.8 M16.11 Office Visit 03/14/2018 11:25a [facility] [place] 56643 S42.491A Asad LAWS Office Visit 03/14/2018 8:42a [place] [facility] Elena Bynum [address] S42.491A [facility] Frank blackwell NP S42.202A Z79.4 E11.9 Office Visit 02/14/2018 11:30a [facility] Anastasia Patel M.D. 30511 M16.11 C.MTri M25.551 Office Visit 02/13/2017 1:30p [facility] Dalia Teranach, 48466 S52.551D Of Asad Chatman M18.11 M65.831 Office Visit 11/22/2016 1:30p [facility] Dalia Teranach, 93457 S52.551A Of Asad Chatman Office Visit 07/20/2016 4:03p [facility] Jina Hernandez, 31321 J44.1 Assoc, Hospitalists Lurdes E11.9 Office Visit 06/18/2016 11:15a [facility] Anastasia Patel M.D. 05475 M25.562 C.Elizabeth M17.12 Z96.651 Office Visit 11/09/2015 11:00a [facility] Anastasia Patel M.D. 84283 R42 CKarenMTri M17.11 M25.561 M25.461 Office Visit 11/07/2015 10:30a [facility] Ass, Stephen Lee M.D. 05194 I20.8 Hospitalists E11.9 R42 R06.02 Office Visit 10/10/2015 8:00a [facility] Anastasia Patel M.D. 80900 M17.11 C.MTri M25.561 M25.461 Office Visit 10/29/2014 1:15p [facility] Anastasia Patel M.D. 33745 719.42 C.M.A. Plan of Care Future Appointment(s):08/15/2018 [...] left kneeFollow up:Follow up: 2 weeks after lzhdmwbR31.462 Effusion, left kneeM17.12 Unilateral primary osteoarthritis, left knee
[2018-08-05] MEDS ORDERED: Famotidine IV* 10 MG/ML 2 ML (20 mg) ONE (09:27)
[2018-08-05] MEDS ORDERED: fentaNYL* 50 MCG/ML 2 ML VIAL (100 MCG VIAL) ONE ×2 (12:46→19:32)
[2018-08-05] MEDS ORDERED: Midazolam* 1 MG/ML 2 ML VIAL (2 MG) ONE (12:46)
[2018-08-05] MEDS ORDERED: Rocuronium* 10 MG/ML VIAL ONE (13:45)
[2018-08-05] MEDS ORDERED: Lidocaine 2% PF * 5 ML VIAL ONE ×2 (15:14→15:15)
[2018-08-05] MEDS ORDERED: Propofol* 10 MG/ML 20 ML BTL IV PUSH ONE (15:14)
[2018-08-05] MEDS ORDERED: HYDROmorphone INJ1* 1 MG/ML SYRINGE ONE ×3 (15:14→17:49)
[2018-08-05] MEDS ORDERED: Phenylephrine INJ* 10 MG/ML 1 ML VIAL (10 MG) ONE (15:14)
[2018-08-05] MEDS ORDERED: Metoclopramide IV* 5 MG/ML 2 ML VIAL ONE (15:15)
[2018-08-05] MEDS ORDERED: PROCHLORPERAZINE INJ 5 MG/ML 2 ML VIAL IV PRN (15:21)
[2018-08-05] MEDS ORDERED: fentaNYL* 50 MCG/ML 2 ML VIAL (100 MCG VIAL) IV PRN (15:21)
[2018-08-05] MEDS ORDERED: DiMENhydriNATE IV* 50 MG/ML VIAL IV PUSH PRN (15:21)
[2018-08-05] MEDS ORDERED: Ketorolac INJ* 30 MG/ML 1 ML VIAL IV PRN (15:21)
[2018-08-05] MEDS ORDERED: Naloxone* 0.4 MG/ML 1 ML VIAL IV PRN (15:21)
[2018-08-05] MEDS ORDERED: HYDROcodone/ACETAMIN 5-325 MG* 1 TAB PO PRN (15:21)
[2018-08-05] MEDS ORDERED: Acetaminophen IV 1GM/100ML * 1,000 MG/100 ML VIAL IVPB ONE (15:21)
[2018-08-05] MEDS ORDERED: Labetalol IV* 5 MG/ML 20 ML VIAL IV PUSH PRN (15:37)
[2018-08-05] MEDS ORDERED: hydrALAZINE IV* 20 MG/ML VIAL IV SLOW PU PRN (15:39)
[2018-08-05] MEDS ORDERED: diPHENhydraMINE PO* 25 MG PO PRN (16:26)
[2018-08-05] MEDS ORDERED: Morphine INJ* 2 MG/ML 1 ML SYRINGE (TWO MG - NEW SYRINGE VERSION) IV PRN (16:26)
[2018-08-05] MEDS ORDERED: diPHENhydraMINE IV* 50 MG/ML 1 ml VIAL (BENADRYL) IV PRN (16:26)
[2018-08-05] MEDS ORDERED: Ondansetron INJ* 2 MG/ML VIAL IV PRN (16:26)
[2018-08-05] MEDS ORDERED: Bisacodyl SUPP* 10 MG SUPP PR PRN (16:26)
[2018-08-05] MEDS ORDERED: Magnesium Hydroxide LIQ* 30 ML UDC PO PRN (16:26)
[2018-08-05] MEDS ORDERED: Polyethylene Glycol 3350* 17 GM PACKET PO PRN (16:26)
[2018-08-05] MEDS ORDERED: Ondansetron INJ* 2 MG/ML VIAL ONE (16:32)
[2018-08-05] MEDS ORDERED: Albuterol/Ipratropium NEB.SOL* Albuterol 2.5 MG/Ipratropium 0.5 MG 3 ML INH PRN (16:37)
[2018-08-05] MEDS ORDERED: SUMATRIPTAN ALT NARE PRN (16:37)
[2018-08-05] MEDS ORDERED: Albuterol HFA INHALER* 8 gm MDI INH PRN (16:37)
[2018-08-05] MEDS ORDERED: Insulin GLARGINE(*) 1 UNITS UNIT SUBCUT PRN (16:37)
[2018-08-05] MEDS ORDERED: fentaNYL* 50 MCG/ML 2 ML VIAL (100 MCG VIAL) IV SLOW PU PRN (16:44)
[2018-08-05] MEDS ORDERED: Labetalol IV* 5 MG/ML 20 ML VIAL ONE (17:16)
[2018-08-05] MEDS ORDERED: Ketorolac INJ* 30 MG/ML 1 ML VIAL ONE (17:26)
[2018-08-05] MEDS ORDERED: Acetaminophen IV 1GM/100ML * 100 ML ONE (17:26)
[2018-08-05] MEDS: HYDROmorphone INJ1* 1 MG/ML SYRINGE IV PRN ×5 (17:49→19:05)
[2018-08-05] MEDS ORDERED: glipiZIDE TAB* 5 MG PO SCH (18:00)
--- NOTE | 2018-08-05 18:29 | RAD ---
Indication: Postop LEFT total knee replacement. Comparison: June 27, 2018 Technique: LEFT knee: AP and crosstable lateral views. Report: Normally located total knee prosthesis. Negative for periprosthetic fracture. Fluid and gas in the anterior joint space. IMPRESSION: #. Unremarkable immediate postoperative appearance following LEFT total knee replacement.
[2018-08-05] MEDS ORDERED: HYDROcodone/ACETAMIN 5-325 MG* 1 TAB ONE (18:55)
[2018-08-05] MEDS ORDERED: Warfarin TAB(*) 6 MG PO ONE (21:00)
[2018-08-05] MEDS: Mometasone/Formoter 200/5 MDI INH SCH (21:15)
[2018-08-05] MEDS: Montelukast Sodium TAB* 10 MG PO SCH (21:44)
[2018-08-05] MEDS: Docusate CAP* 100 MG PO SCH (21:45)
[2018-08-05] MEDS: busPIRone TAB* 10 MG PO SCH (21:45)
[2018-08-05] MEDS: Atorvastatin* 20 MG TAB PO SCH (21:45)
[2018-08-05] MEDS: Omeprazole CAP* 20 MG PO SCH (21:46)
[2018-08-05] MEDS: oxyCODONE TAB* 5 MG TAB PO PRN (21:47)
[2018-08-05] MEDS: Cyclobenzaprine TAB* 10 MG PO PRN (21:48)
[2018-08-05] MEDS: Magnesium Hydroxide LIQ* 30 ML UDC PO SCH (21:49)
[2018-08-05] MEDS: metFORMIN* 500 MG TAB PO SCH (21:58)
[2018-08-05] MEDS: Acetaminophen TAB* 325 MG PO SCH (22:00)
[2018-08-05] MEDS: ceFAZolin 1 GM ADVAN(*) 1 GM in NS 0.9% 50 ML* 50 ML IVPB SCH (22:27)
[2018-08-06] MEDS: Acetaminophen TAB* 325 MG PO SCH ×3 (01:49→17:50)
[2018-08-06] MEDS: oxyCODONE TAB* 5 MG TAB PO PRN ×4 (02:40→22:36)
[2018-08-06] MEDS ORDERED: NS 0.9% 1000 ML* 1,000 ML IV ONE (05:45)
[2018-08-06 05:59] LABS: Hematocrit 36 % (35-47); Hemoglobin 11.7 g/dl (12.0-16.0); Platelet Count 233 10^3/ul (150-450)
[2018-08-06] MEDS: Cyclobenzaprine TAB* 10 MG PO PRN ×2 (06:01→16:44)
[2018-08-06 06:05] LABS: INR 1.06 (0.77-1.02)
[2018-08-06] MEDS: ceFAZolin 1 GM ADVAN(*) 1 GM in NS 0.9% 50 ML* 50 ML IVPB SCH ×2 (07:11→15:08)
[2018-08-06] MEDS: Mometasone/Formoter 200/5 MDI INH SCH (07:45)
[2018-08-06] MEDS: Citalopram TAB* 40 MG PO SCH (08:29)
[2018-08-06] MEDS: Omeprazole CAP* 20 MG PO SCH ×2 (08:29→22:02)
[2018-08-06] MEDS: Docusate CAP* 100 MG PO SCH ×2 (08:29→22:03)
[2018-08-06] MEDS: metFORMIN* 500 MG TAB PO SCH ×2 (08:30→22:03)
[2018-08-06] MEDS: Magnesium Hydroxide LIQ* 30 ML UDC PO SCH ×2 (08:30→22:05)
--- NOTE | 2018-08-06 08:46 | OP ---
DATE OF OPERATION: 08/05/18 - ROOM #343 DATE OF : 44 ATTENDING SURGEON: Anastasia Patel MD SENIOR MARKETING ANALYST: LOU Donnelly. Mr. Oneil did help throughout the procedure with preparation of the leg, wound retraction, manipulation of the knee, and wound closure. ANESTHESIOLOGIST: Dr. Soto. ANESTHESIA: General. PRE-OP DIAGNOSIS: Severe end-stage degenerative osteoarthritis of the left knee joint. POST-OP DIAGNOSIS: Severe end-stage degenerative osteoarthritis of the left knee joint. OPERATIVE PROCEDURE: Left total knee arthroplasty. TOURNIQUET TIME: 41 minutes. ESTIMATED BLOOD LOSS: 200 cc. COMPLICATIONS: None. SPECIMEN: Bone and cartilage from the left knee joint sent to pathology. HARDWARE USED: This is cemented Cain and Nephew total knee arthroplasty hardware. For the cement, 2 packages of Simplex bone cement. For the femur, a left Legion posterior stabilized size 4 femoral implant. For the tibia, a left Irlanda II size 3 tibial base plate. For the patella, a 32-mm 3-peg all poly patella. For the insert, an 11-mm posterior stabilized articular insert, size 3 -4, this is a constrained liner. BRIEF HISTORY/INDICATION: Ms. Srinivasan is a 78-year-old female with years of increasingly severe left knee pain. She failed conservative treatment with anti - inflammatories, pain medication, intraarticular injection, ambulatory assistive device, and physical therapy. Due to continued pain and decreased quality of life, the patient elected to undergo left total knee arthroplasty. Her radiographs showed lkft-nw-rwye arthritis. Informed consent was obtained from the patient. She understood the risks of surgery included but were not limited to bleeding, infection, damage to nearby structures, continued pain, need for further surgery, intraoperative fracture, nerve palsy, hardware failure or loosening, knee stiffness, loss of motion, stroke, heart attack, blood clot, and . She wished to proceed. INTRAOPERATIVE FINDINGS: Intraoperatively, the patient was noted to have significant valgus alignment of 10 degrees at the start of the case. Radiographs showed a varus knee with medial sjmc-dj-sizg contact. She was found to have laxity in her MCL which was quite significant. She had intraoperatively complete loss of cartilage in the medial and patellofemoral compartments. Extensive osteophyte formation was noted. DESCRIPTION OF PROCEDURE: Ms. Srinivasan was identified in the preanesthesia unit. Her left lower extremity was marked as the correct operative site. Informed consent was signed and placed in the chart. The patient was taken to the operating room and placed under general anesthesia. A Waters catheter was placed. Tourniquet was placed on the left thigh. Left lower extremity was prepped and draped in the usual sterile fashion. Preop time-out was made to once gain correctly identify the patient, side, and site. Appropriate perioperative antibiotics were given within 1 hour of incision. Tourniquet was inflated and the total tourniquet time for this procedure was 41 minutes. A midline incision was made with a 10-blade and carried down to the extensor mechanism. A new 10-blade was used to make a standard medial parapatellar arthrotomy. Patella was subluxed laterally. Electrocautery was used to elevate the soft tissue off the superomedial tibia to the mid sagittal plane. The knee was flexed up. The anterior horn of the lateral meniscus and ACL were sharply released. A drill was used to enter the distal femur. Intramedullary distal femoral cutting guide was pinned on the distal femur. Oscillating saw was used to make the distal femoral cut. Next, the external rotation guide was pinned on the distal femur and the distal femur was sized to size 4. Size 4 multi-cutting jig was pinned on the distal femur. Oscillating saw was used to make the appropriate 4 chamfer cuts. PCL was completely released. The tibia was subluxed anteriorly. Extramedullary tibial cutting guide was pinned on the proximal tibia. Oscillating saw was used to make the appropriate proximal tibial cut. This cut was made perpendicular to the mechanical axis of the tibia. The bone was carefully removed. The knee was brought out into full extension. Medial and lateral ligaments were well balanced. Once again, the MCL laxity was noted, although there was no obvious tear in the MCL. Flexion and extension gaps were well balanced. The knee had full extension with a spacer block placed. The knee was flexed up. Lamina leather flesher was placed both medially and laterally. Any remaining meniscus was carefully removed using electrocautery. Curved osteotome was used to remove any posterior osteophytes. Tibial tray and drop scot were placed. This confirmed a satisfactory tibial cut. A size 4 left femoral trial was impacted on to the distal femur and had excellent fit. The box for the posterior stabilized implant was prepared using a reamer and box cut osteotome. A size 3 tibial tray trial with an 11-mm insert trial was placed. The knee was taken through a range of motion. The knee had full extension to 130 degrees of flexion. There was satisfactory patellofemoral tracking. The patella was everted. 9 mm of patellar bone and cartilage was carefully removed using an oscillating saw. Patella was sized to a size 32. Three peg holes were drilled through the size 32 guide. A 32 trial patella was placed and the knee was taken through a range of motion. There was satisfactory patellofemoral tracking. All trials were carefully removed. Proximal tibia was subluxed anteriorly and sized to a size 3. The proximal tibia was prepared using a size 3 keel punch. All bony cut surfaces were copiously irrigated with sterile saline and dried. Final implants were cemented into place starting with the tibia followed by the femur and last the patella. An 11-mm insert trial was placed and the knee was brought out into full extension. Tourniquet was turned down at 41 minutes. The knee was copiously irrigated with sterile saline. Electrocautery was used to obtain meticulous hemostasis. Once the cement had fully cured, the insert trial was removed. Any excess cement was removed from around the capsule and the hardware. Final insert chosen was an 11-mm constrained articular insert, size 3-4. This was locked into position on the tibial tray. Stability of the insert was checked and rechecked and noted to be stable. The knee had full extension to 130 degrees of flexion with excellent medial and lateral stability. The extensor mechanism was closed using interrupted #1 Vicryl. The rest of the incision was closed in a layered fashion using 0 and 2-0 Vicryl. Skin was closed using running 3-0 nylon suture. Sterile Xeroform, 4x4's, and Webril were used to cover the incisions. Fidel wrap and cold pack were placed over this. The patient's anesthesia was reversed without difficulty. She was taken to the PACU in stable condition. Intended weightbearing will be weightbearing as tolerated. Intended DVT prophylaxis will be Coumadin with a Lovenox bridge. [id number]/[facility] #: [id number] JASMEET
[2018-08-06] MEDS ORDERED: Dextrose 50% Syringe 50 ML* 25 GM/50 ML SYRINGE IV PUSH PRN (08:49)
[2018-08-06] MEDS ORDERED: glipiZIDE TAB.XL* 5 MG PO SCH (09:00)
--- NOTE | 2018-08-06 09:45 | PN ---
Progress Note - Progress Note Date of Service: 08/06/18 SOAP: Subjective: []Patient seen and examined at bedside. She felt dizzy after PT this morning. Denies chest pain, shortness of breath, nausea. Objective: []General: Well appearing, NAD LLE: Left knee dressing CDI. Cryo unit in use. Thigh soft. Sensation intact distally. DF/PF intact. Dp2+ Calves supple and nontender without erythema, edema or palpable cords Assessment: []POD 1 sp Left total knee arthroplasty Plan: []WBAT PT/OT mild hyponatremia sodium of 133. Stop IV fluids, carb consistent diet, recheck tomorrow Dr Alley Mirza is covering for PCP Dr Mary, appreciate medical comanagement Vital Signs Temp 97.9 F 08/06/18 07:25 Pulse 105 08/06/18 07:25 Resp 18 08/06/18 08:32 BP 156/76 08/06/18 07:25 Pulse Ox 97 08/06/18 07:25 Intake & Output 08/05/18 08/06/18 08/06/18 18:59 06:59 18:59 Intake Total 1460 1280 1946 Output Total 300 225 Balance 1160 1055 1946 Weight 206 lb Intake: IV Fluids 1400 50 1946 ABX - CEFAZOLIN 50 50 LR 1400 916 NS (0.9%) 980 Oral 60 1230 Output: Waters 150 225 Estimated Blood Loss 150 Laboratory Last Values Hgb 11.7 g/dl (12.0-16.0) L 08/06/18 05:43 Hct 36 % (35-47) 08/06/18 05:43 Plt Count 233 10^3/ul (150-450) 08/06/18 05:43 MPV 8.0 um3 (7.4-10.4) 08/06/18 05:43 INR (Anticoag Therapy) 1.06 (0.77-1.02) H 08/06/18 05:43 Sodium 133 mmol/L (135-145) L 08/06/18 05:43 Potassium 4.2 mmol/L (3.5-5.0) 08/06/18 05:43 Chloride 101 mmol/L (101-111) 08/06/18 05:43 Carbon Dioxide 26 mmol/L (22-32) 08/06/18 05:43 Anion Gap 6 mmol/L (2-11) 08/06/18 05:43 BUN 16 mg/dL (6-24) 08/06/18 05:43 Creatinine 0.76 mg/dL (0.51-0.95) 08/06/18 05:43 Est GFR ( Amer) 89.5 (>60) 08/06/18 05:43 Est GFR (Non-Af Amer) 74.0 (>60) 08/06/18 05:43 BUN/Creatinine Ratio 21.1 (8-20) H 08/06/18 05:43 Glucose 182 mg/dL (70-100) H 08/06/18 05:43 POC Glucose (mg/dL) 182 mg/dL (70-100) H 08/06/18 07:36 Calcium 8.8 mg/dL (8.6-10.3) 08/06/18 05:43
[2018-08-06] MEDS: busPIRone TAB* 10 MG PO SCH ×2 (10:10→22:03)
[2018-08-06] MEDS: buPROPion SR TAB.SR* 100 MG PO SCH (10:10)
[2018-08-06] MEDS: Insulin LISPRO* 1 UNITS UNIT SUBCUT SCH ×3 (12:18→22:35)
[2018-08-06] MEDS: traMADol TAB* 50 MG PO PRN (15:07)
[2018-08-06] MEDS ORDERED: HYDROmorphone INJ1* 1 MG/ML SYRINGE IV SLOW PU PRN (15:59)
[2018-08-06] MEDS: Gabapentin CAP(*) 100 MG PO PRN (16:44)
[2018-08-06] MEDS ORDERED: Warfarin TAB(*) 4 MG PO ONE (17:00)
[2018-08-06] MEDS: Montelukast Sodium TAB* 10 MG PO SCH (17:50)
[2018-08-06] MEDS: Enoxaparin(*) 30 MG/0.3 ML SYR SUBCUT SCH (17:50)
[2018-08-06] MEDS ORDERED: Insulin GLARGINE(*) 1 UNITS UNIT SUBCUT SCH (21:00)
[2018-08-06] MEDS: Atorvastatin* 20 MG TAB PO SCH (22:03)
[2018-08-06] MEDS: Insulin GLARGINE(*) 1 UNITS UNIT SUBCUT SCH (22:32)
[2018-08-07] MEDS: Mometasone/Formoter 200/5 MDI INH SCH ×3 (00:52→20:11)
[2018-08-07] MEDS: Acetaminophen TAB* 325 MG PO SCH ×3 (01:08→16:35)
[2018-08-07] MEDS: Cyclobenzaprine TAB* 10 MG PO PRN ×3 (01:08→16:34)
[2018-08-07] MEDS: traMADol TAB* 50 MG PO PRN ×3 (03:20→17:42)
[2018-08-07] MEDS: oxyCODONE TAB* 5 MG TAB PO PRN ×2 (05:51→12:44)
[2018-08-07 06:16] LABS: Hematocrit 34 % (35-47); Hemoglobin 11.2 g/dl (12.0-16.0); Mean Platelet Volume 8.1 um3 (7.4-10.4); Platelet Count 203 10^3/ul (150-450)
[2018-08-07 06:18] LABS: INR 1.67 (0.77-1.02)
[2018-08-07] MEDS: Insulin GLARGINE(*) 1 UNITS UNIT SUBCUT SCH ×2 (08:21→22:16)
[2018-08-07] MEDS: Insulin LISPRO* 1 UNITS UNIT SUBCUT SCH ×4 (08:21→21:52)
[2018-08-07] MEDS: Magnesium Hydroxide LIQ* 30 ML UDC PO SCH ×2 (08:23→20:34)
[2018-08-07] MEDS: buPROPion SR TAB.SR* 100 MG PO SCH (08:24)
[2018-08-07] MEDS: Omeprazole CAP* 20 MG PO SCH ×2 (08:24→20:32)
[2018-08-07] MEDS: Citalopram TAB* 40 MG PO SCH (08:25)
[2018-08-07] MEDS: Docusate CAP* 100 MG PO SCH ×2 (08:25→20:34)
[2018-08-07] MEDS: busPIRone TAB* 10 MG PO SCH ×2 (08:25→20:33)
[2018-08-07] MEDS: metFORMIN* 500 MG TAB PO SCH ×2 (08:25→20:32)
[2018-08-07] MEDS: Gabapentin CAP(*) 100 MG PO PRN (08:25)
--- NOTE | 2018-08-07 08:41 | PN ---
Progress Note - Progress Note Date of Service: 08/07/18 SOAP: Subjective: []Patient seen and examined OOB in chair. She is feeling better today with 5/10 knee pain. Denies chest pain, shortness of breath, irregular heartbeats, dizziness, nausea. She remains tachycardic and states she was tachycardic after her last surgery as well. Objective: []General: Well appearing, NAD LLE: Dressing changed, incision CDI. Thigh is soft, DF/PF intact. Sensation intact distally. DP2+. Calves: supple and nontender without erythema, edema or palpable cords Assessment: []POD 2 sp Left total knee arthroplasty Plan: []WBAT PT/OT lovenox, coumadin [address] Alley Mirza is covering for PCP Dr Mary, discussed case this morning, appreciate medical comanagement. Vital Signs Temp 98.3 F 08/07/18 07:28 Pulse 106 08/07/18 07:28 Resp 18 08/07/18 08:25 BP 148/68 08/07/18 07:28 Pulse Ox 98 08/07/18 07:28 Intake & Output 08/06/18 08/07/18 08/07/18 18:59 06:59 18:59 Intake Total 4087 480 Output Total 1550 2800 Balance 2537 -2320 Intake: IV Fluids 2927 ABX - CEFAZOLIN 50 LR 1897 NS (0.9%) 980 Oral 1160 480 Output: Urine 1550 2800 Other: Estimated Void Large # Voids 1 Laboratory Last Values Hgb 11.2 g/dl (12.0-16.0) L 08/07/18 05:47 Hct 34 % (35-47) L 08/07/18 05:47 Plt Count 203 10^3/ul (150-450) 08/07/18 05:47 MPV 8.1 um3 (7.4-10.4) 08/07/18 05:47 INR (Anticoag Therapy) 1.67 (0.77-1.02) H 08/07/18 05:48 Sodium 134 mmol/L (135-145) L 08/07/18 05:47 Potassium 4.2 mmol/L (3.5-5.0) 08/06/18 05:43 Chloride 101 mmol/L (101-111) 08/06/18 05:43 Carbon Dioxide 26 mmol/L (22-32) 08/06/18 05:43 Anion Gap 6 mmol/L (2-11) 08/06/18 05:43 BUN 16 mg/dL (6-24) 08/06/18 05:43 Creatinine 0.76 mg/dL (0.51-0.95) 08/06/18 05:43 Est GFR ( Amer) 89.5 (>60) 08/06/18 05:43 Est GFR (Non-Af Amer) 74.0 (>60) 08/06/18 05:43 BUN/Creatinine Ratio 21.1 (8-20) H 08/06/18 05:43 Glucose 182 mg/dL (70-100) H 08/06/18 05:43 POC Glucose (mg/dL) 165 mg/dL (70-100) H 08/07/18 07:40 Calcium 8.8 mg/dL (8.6-10.3) 08/06/18 05:43
[2018-08-07 11:18] LABS: EGFR Non-African American 91.9 (>60)
[2018-08-07] MEDS ORDERED: Magnesium Sulfate 1 GM IV* 1 GM/100 ML BAG IV ONE (11:28)
[2018-08-07] MEDS ORDERED: Warfarin TAB(*) 6 MG PO SCH (17:00)
[2018-08-07] MEDS: Montelukast Sodium TAB* 10 MG PO SCH (17:38)
[2018-08-07] MEDS: Enoxaparin(*) 30 MG/0.3 ML SYR SUBCUT SCH (17:40)
[2018-08-07] MEDS: Atorvastatin* 20 MG TAB PO SCH (20:33)
[2018-08-08] MEDS: Cyclobenzaprine TAB* 10 MG PO PRN ×3 (00:54→13:45)
[2018-08-08] MEDS: Acetaminophen TAB* 325 MG PO SCH ×2 (00:54→08:37)
[2018-08-08] MEDS: Gabapentin CAP(*) 100 MG PO PRN (03:16)
[2018-08-08 05:30] LABS: Hematocrit 31 % (35-47); Hemoglobin 10.3 g/dl (12.0-16.0); Mean Platelet Volume 7.7 um3 (7.4-10.4); Platelet Count 182 10^3/ul (150-450)
[2018-08-08 05:34] LABS: INR 3.24 (0.77-1.02)
[2018-08-08] MEDS: busPIRone TAB* 10 MG PO SCH (08:36)
[2018-08-08] MEDS: Docusate CAP* 100 MG PO SCH (08:36)
[2018-08-08] MEDS: Citalopram TAB* 40 MG PO SCH (08:36)
[2018-08-08] MEDS: Omeprazole CAP* 20 MG PO SCH (08:36)
[2018-08-08] MEDS: metFORMIN* 500 MG TAB PO SCH (08:36)
[2018-08-08] MEDS: buPROPion SR TAB.SR* 100 MG PO SCH (08:36)
[2018-08-08] MEDS: Insulin GLARGINE(*) 1 UNITS UNIT SUBCUT SCH (08:38)
[2018-08-08] MEDS: Insulin LISPRO* 1 UNITS UNIT SUBCUT SCH ×2 (08:39→12:09)
[2018-08-08] MEDS: Magnesium Hydroxide LIQ* 30 ML UDC PO SCH (08:40)
[2018-08-08] MEDS: Mometasone/Formoter 200/5 MDI INH SCH (08:41)
--- NOTE | 2018-08-08 09:21 | PN ---
Progress Note - Progress Note Date of Service: 08/08/18 SOAP: Subjective: []Patient seen OOB in chair. She has improved and feels ready to go home later this afternoon. She denies SOB, CP, palpitations or dizziness. Pain adequately managed with Tyleno, Flexeril and Gabapentin. Objective: [] Vital Signs Temp 99.0 F 08/08/18 03:16 Pulse 104 08/08/18 08:47 Resp 16 08/08/18 08:36 BP 159/69 08/08/18 03:16 Pulse Ox 93 08/08/18 03:16 Intake & Output 08/07/18 08/08/18 08/08/18 18:59 06:59 18:59 Intake Total 1260 1885 480 Output Total 2400 1500 900 Balance -1140 385 -420 Intake: IV Fluids 105 magnesium 105 Oral 1260 1780 480 Output: Urine 2400 1500 900 Other: # Bowel Movements 1 Estimated Stool Amount Large Laboratory Results - last 24 hr 08/07/18 08/07/18 08/07/18 05:47 11:58 16:19 Hgb Hct Plt Count MPV INR (Anticoag Therapy) Sodium 134 L Potassium 3.6 Chloride 101 Carbon Dioxide 24 Anion Gap 9 BUN 6 Creatinine 0.63 Est GFR ( Amer) 111.2 Est GFR (Non-Af Amer) 91.9 BUN/Creatinine Ratio 9.5 Glucose 157 H POC Glucose (mg/dL) 133 H 155 H Calcium 8.9 Phosphorus 2.5 Magnesium 1.8 L TSH 1.27 08/07/18 08/08/18 08/08/18 20:37 05:17 05:17 Hgb 10.3 L Hct 31 L Plt Count 182 MPV 7.7 INR (Anticoag Therapy) 3.24 H Sodium Potassium Chloride Carbon Dioxide Anion Gap BUN Creatinine Est GFR ( Amer) Est GFR (Non-Af Amer) BUN/Creatinine Ratio Glucose POC Glucose (mg/dL) 124 H Calcium Phosphorus Magnesium TSH 08/08/18 07:29 Hgb Hct Plt Count MPV INR (Anticoag Therapy) Sodium Potassium Chloride Carbon Dioxide Anion Gap BUN Creatinine Est GFR ( Amer) Est GFR (Non-Af Amer) BUN/Creatinine Ratio Glucose POC Glucose (mg/dL) 135 H Calcium Phosphorus Magnesium TSH Left knee incision C/D/I, new dressings applied calf NT and soft +DF/PF left ankle sensation remains intact distally Assessment: []s/p LTK POD #3 Plan: []PT/OT WBAT LLE Discharge home this afternoon after PT Hold Coumadin today, Lovenox discontinued Follow up as scheduled in 10-[address] Patel.
[2018-08-08] MEDS: traMADol TAB* 50 MG PO PRN (10:34)
[2018-08-08 11:52] VITALS: BP 152/65
--- NOTE | 2018-08-09 03:20 | DS ---
DISCHARGE SUMMARY: DATE OF ADMISSION: 08/05/18 DATE OF DISCHARGE: 08/08/18 ATTENDING PHYSICIAN: Anastasia Patel MD * (DICTATED BY LOU JUAN) ADMISSION DIAGNOSIS: Severe end-stage degenerative osteoarthritis of the left knee joint. DISCHARGE DIAGNOSIS: Severe end-stage degenerative osteoarthritis of left knee joint. SURGERY PERFORMED: Left total knee arthroplasty. HOSPITAL COURSE: The patient is a 78-year-old female, who had years of increasingly severe left knee pain. She failed conservative management with anti- inflammatories, pain medication, intra-articular cortisone injections and physical therapy. Due to decreased quality of life and increased pain, she elected to proceed with the aforementioned procedure. She was taken to the operating room under the care of Dr. Anastasia Patel for the left total knee arthroplasty on 08/05/18. She tolerated the procedure well and left the operating room in stable condition. Postoperatively, she progressed satisfactorily over the PT/OT goal. She did feel dizzy postoperative day #1, but this improved. She had some mild tachycardia throughout her hospital stay, but this has been her baseline and has reported the same issues after previous surgeries. She is currently denying dizziness, lightheadedness, shortness of breath or chest pain with ambulation exercises today. It was felt that she mastered her PT/OT goals and her orthopedic and medical status is stable to allow her for discharge to home later this afternoon. CONDITION ON DISCHARGE: Her left knee incision is healing without drainage or evidence of infection. Her calf is soft and nontender. Her neurovascular status is intact. She has active dorsiflexion and plantar flexion of her left ankle. Her circulation and sensation are intact. PLAN: Discharged to home after physical therapy this afternoon. She is tolerating her pain with Tylenol, Flexeril and gabapentin and will be provided with a prescription of Flexeril 10 mg q.6 hours p.r.n., muscle spasm/pain #60 no refills and gabapentin 100 mg p.o. b.i.d. 30 tablets with 1 refill, also prescription of Coumadin 2 mg tablets to be taken as directed. There will be no Coumadin given today 08/08/18, no Coumadin on Saturday08/09/18, 2 mg of Coumadin 08/10/18 with a repeat INR blood draw on 08/11/18 with directions for dosages to follow. She will follow up in the office with Dr. Patel as scheduled in 10 to 14 days. LOU JUAN [id number]/[facility] #: [id number] JASMEET
== END 2018-08-08 14:15 | disposition home health service (06) | DRG 470 ==
LOC: AA 08-05 07:31 → SSU 08-05 20:01
PROVIDERS: ADMIT Orthopaedic Surgery Adult Reconstructive Orthopaedic Surgery; ATTEND Orthopaedic Surgery Adult Reconstructive Orthopaedic Surgery
PROC: 0SRD0J9 Replacement of Left Knee Joint with Synthetic Substitute, Cemented, Open Approach (ICD-10-PCS; principal; 2018-08-05 09:00)
DX: M17.12 Unilateral primary osteoarthritis, left knee (principal); E87.1 Hypo-osmolality and hyponatremia; J44.9 Chronic obstructive pulmonary disease, unspecified; F32.9 Major depressive disorder, single episode, unspecified; K21.9 Gastro-esophageal reflux disease without esophagitis; E11.9 Type 2 diabetes mellitus without complications; Z96.651 Presence of right artificial knee joint; F41.1 Generalized anxiety disorder; M25.462 Effusion, left knee; E78.00 Pure hypercholesterolemia, unspecified; M81.0 Age-related osteoporosis without current pathological fracture; K11.7 Disturbances of salivary secretion; I10 Essential (primary) hypertension; E66.9 Obesity, unspecified; R41.3 Other amnesia; G43.909 Migraine, unspecified, not intractable, without status migrainosus; M21.162 Varus deformity, not elsewhere classified, left knee; M25.762 Osteophyte, left knee; J45.20 Mild intermittent asthma, uncomplicated; Z96.642 Presence of left artificial hip joint; Z98.49 Cataract extraction status, unspecified eye; Z88.5 Allergy status to narcotic agent; Z88.2 Allergy status to sulfonamides; Z85.3 Personal history of malignant neoplasm of breast; Z90.13 Acquired absence of bilateral breasts and nipples; Z88.8 Allergy status to other drugs, medicaments and biological substances; Z88.6 Allergy status to analgesic agent; Z91.040 Latex allergy status; Z82.3 Family history of stroke; Z87.891 Personal history of nicotine dependence; Z83.3 Family history of diabetes mellitus; Z90.710 Acquired absence of both cervix and uterus; Z98.51 Tubal ligation status; Z82.5 Family history of asthma and other chronic lower respiratory diseases; Z81.8 Family history of other mental and behavioral disorders; Z68.35 Body mass index [BMI] 35.0-35.9, adult; Z84.1 Family history of disorders of kidney and ureter; Z79.01 Long term (current) use of anticoagulants; R42 Dizziness and giddiness; R00.0 Tachycardia, unspecified
CPT/HCPCS: 36415; 80048; 83735; 84100; 84443; 85014; 85018; 85049; 85610; 88305; 88311; 93005; 94640; A9270-GY; C1776; G8978-GP-CL; G8979-GP-CI; G8987-GO-CK; G8988-GO-CI; J0690; J1100; J1170; J1240; J1650; J1885; J2250; J2270; J2405; J2704; J2765; J3010; J3475

== ENCOUNTER 2018-03-14 13:11 | Inpatient (IN) | payer MEDICARE ==
--- OUTSIDE RECORDS SUMMARY | 2018-03-14 13:20 | XMS REPORT ---
:1940 External Reference #:[id number] Author Organization [employer] Address [address] [facility] [address] [place] [address] Phone [phone] Care Team Providers Name Role Phone Casey Mary MD Primary Care Physician Unavailable Payers Type Date Identification Payment Subscriber Numbers Provider Health Maintenance Effective: Policy Number: Medicare Antonino Masters (HMO) 10/07/2013 [id number] [facility] Number: [id number] [address] [address] PayID: [id number] WeslyJUAN [place] [id number] Problems Date Description Provider Status Onset: 10/10/2015 Localized, primary osteoarthritis Anastasia Patel M.D. Active Onset: 03/12/2016 Aftercare following joint replacement Anastasia Patel M.D. Active surgery Onset: 02/14/2018 Localized, primary osteoarthritis of the Anastasia Patel M.D. Active pelvic region and thigh Family History Date Family Member(s) Problem(s) Comments General Diabetes Social History Type Date Description Comments Lives With Negative For Occupation Retired ETOH Use Denies alcohol use Smoking Patient has never smoked Exercise Type/Frequency Exercises regularly Allergies, Adverse Reactions, Alerts Date Description Reaction Status Severity Comments 08/04/2014 Sulfa Antibiotics active 08/04/2014 Morphine active 08/04/2014 Latex active 08/04/2014 Tape active 02/14/2018 Hydrocodone active 02/14/2018 Influenza Virus Vaccine, Inactivated active C-Ptecvamf-85 (H1N1) Strain / Influenza Virus Vaccine, Inactivated K-Qtljlpq-123-2007 (H3N2) (K-Krlvoivm-60-2007-Like) Strain / Influenza Virus Vaccine, Inactivated V-Qwxsogm-1 Strain Medications Medication Date Status Form Strength Qnty SIG Indications Ordering Provider Tramadol HCL 02/28 Active Tablets 50mg 30tab 1 tablet by M16.11 s mouth every Jorge, 6 hours as M.D. needed pain Meloxicam 04/30 Active Tablets 7.5mg 30tab take 1 tab M17.12 s by mouth Bordoni, qdaily with PUMP STATION OPERATOR food Glipizide ER Active Tablets 5mg 1 by mouth Unknown /0000 ER 24HR every morning Atorvastatin Active Tablets 20mg take 1 Unknown Calcium /0000 tablet at bedtime Buspirone HCL Active Tablets 7.5mg 1 by mouth Unknown /0000 daily Citalopram Active Tablets 40mg 1 by mouth Unknown Hydrobromide /0000 every day Omeprazole Active Capsules 40mg 1 by mouth Unknown /0000 DR twice a day Montelukast Active Tablets 10mg 1 by mouth Unknown Sodium /0000 every day Ventolin HFA Active Aerosol 108(90Bas 2 puffs by Unknown /0000 e) mouth four mcg/Act times a day as needed Fish Oil Active Capsules 1000mg 1 by mouth Unknown /0000 every day Sumatriptan Active Solution 5mg/Act 1 spray per Unknown /0000 nostril x 1 , may repeat x 1 in 24 hours Calcium 500 + D Active Tablets 500-125mg twice a day Unknown /0000 -Unit Lantus Active Unknown /0000 Advair HFA Active Aerosol 115-21mcg 2 puff twice Unknown /0000 /Act a day Bupropion HCL Active Tablets 100mg take 1 Unknown /0000 tablet daily Cholecalciferol Active Unknown /0000 Trulicity Active Solution 0.75mg/0. sc weekly /0000 Pen-Injec 5ML t Lortab 11/22 Hx Tablets 5-325mg 30tab 1-2 tab by s mouth every Whalen, - 4-6 hours as M.D. 02/13 needed pain /2017 Lortab 06/18 Hx Tablets 5-325mg 90tab 1 or 2 M25.562 Anastasia s tablets q8 Jorge, - hours as M.D. 02/13 needed pain Delco 12/16 Hx Tablets 5-325mg 60tab 1-2 by mouth s every 4 to 6 Bordoni, - hours as PUMP STATION OPERATOR 03/11 needed Tramadol HCL 12/16 Hx Tablets 50mg 60tab 1-2 tablets Wil s every 6 Sidney, - hours as M.D. 01/25 needed Percocet Hx Tablets 5-325mg 60tab take 1-2 s pills every Fady, - 6 hours as M.D. 01/25 needed pain Coumadin 12/02 Hx Tablets 2mg 45tab 1 by mouth M17.11 s daily post Bordoni, - operatively PUMP STATION OPERATOR 03/11 or directed by vns/. do not take this medication prior to surgery Colace 12/02 Hx Capsules 100mg 90cap 1 by mouth M17.11 s up to 3 Bordoni, - times a day PUMP STATION OPERATOR 03/11 as needed for constipation . Comode 10/19 Hx comode- 7.11 dispense Bordoni, - 1m17.11 PUMP STATION OPERATOR 06/17 Elevated Toilet 10/19 Hx dispense 2 M17.11 m17.11 Bordoni, - PUMP STATION OPERATOR 06/17 Indomethacin ER 12/30 Hx Capsules 75mg 60cap 1 by mouth ER s three times Whalen, - a day as M.D. 10/04 needed swelling or pain Ultracet 11/01 Hx Tablets 37.5-325m 30tab 1 - 2 by g s mouth q4-6hr Whalen, - as needed M.D. 12/05 pain Tramadol HCL 08/11 Hx Tablets 50mg 30tab 1 by mouth s every 4-6 as Whalen, - needed pain M.D. 10/07 Metformin HCL Hx Tablets 500mg 1 by mouth /0000 twice a day - 02/13 Aspir-Low Hx Tablets 81mg 1 by mouth Unknown / DR every day - 06/17 Ibuprofen Hx Tablets 400mg One by mouth Unknown / three times - a day as 12/05 needed pain Vitamin D- Hx Tablets 3000 1 by mouth Unknown /0000 every day - 02/13 Imitrex Hx Solution 5mg/Act as directed Unknown - 02/12 Ramipril Hx Capsules 5mg 1 by mouth Unknown /0000 every day - 06/17 Medications Administered in Office Medication Date Status Form Strength Qnty SIG Indications Ordering Provider Depomedrol Administered Injection Dalia 40MG Liu Whalen M.D. Synvisal Or Administered Injection Anastasia Synvisc-One Liu Patel M.D. Injection 1 MG Synvisc Or Administered Injection Anastasia Synvisc-One Liu Patel M.D. Injection 1 MG Synvisc Or Administered Injection Anastasia Synvisc-One Liu Patel M.D. Injection 1 MG Depomedrol Administered Injection Anastasia 40MG Naty Patel M.D. Depomedrol Administered Injection Anastasia 40MG Naty Patel M.D. Depomedrol Administered Injection Dalia 80MG Delores Whalen M.D. Vital Signs Date Vital Result Comment 02/28/2018 Height 63 inches 5'3" Weight 216.00 lb BP Systolic 126 mmHg BP Diastolic 60 mmHg Respiratory Rate 20 /min Pain Level 6 BMI (Body Mass Index) 38.3 kg/m2 02/14/2018 Height 63 inches 5'3" Weight 216.00 lb Heart Rate 100 /min BP Systolic 132 mmHg BP Diastolic 88 mmHg BMI (Body Mass Index) 38.3 kg/m2 02/13/2017 Height 63.5 inches 5'3.50" Heart Rate 90 /min BP Systolic 151 mmHg BP Diastolic 70 mmHg Body Temperature 97.8 F 12/31/2016 Height 62.5 inches 5'2.50" Weight 230.00 lb Heart Rate 88 /min BP Systolic 158 mmHg BP Diastolic 82 mmHg Respiratory Rate 16 /min Body Temperature 98.1 F Pain Level 0 BMI (Body Mass Index) 41.4 kg/m2 12/10/2016 Height 62.5 inches 5'2.50" Weight 230.00 lb Respiratory Rate 20 /min Body Temperature 96.6 F Pain Level 3 BMI (Body Mass Index) 41.4 kg/m2 11/22/2016 Height 62.5 inches 5'2.50" Weight 230.00 lb Heart Rate 83 /min BP Systolic 146 mmHg BP Diastolic 73 mmHg BMI (Body Mass Index) 41.4 kg/m2 11/12/2016 Height 62.5 inches 5'2.50" Weight 230.00 lb Heart Rate 80 /min BP Systolic 130 mmHg BP Diastolic 76 mmHg Respiratory Rate 20 /min Pain Level 4 BMI (Body Mass Index) 41.4 kg/m2 11/05/2016 Height 62.5 inches 5'2.50" Weight 230.00 lb Respiratory Rate 16 /min Pain Level 3 BMI (Body Mass Index) 41.4 kg/m2 10/29/2016 Height 62.5 inches 5'2.50" Weight 230.00 lb Respiratory Rate 18 /min Pain Level 6 BMI (Body Mass Index) 41.4 kg/m2 08/17/2016 Heart Rate 96 /min BP Systolic 148 mmHg BP Diastolic 74 mmHg Pain Level 7 06/18/2016 Heart Rate 88 /min Respiratory Rate 16 /min Pain Level 4 04/30/2016 Height 62.5 inches 5'2.50" Weight 203.00 lb BP Systolic 128 mmHg BP Diastolic 60 mmHg BMI (Body Mass Index) 36.5 kg/m2 03/12/2016 Height 62.5 inches Weight 205.00 lb Pain Level 0 BMI (Body Mass Index) 36.9 kg/m2 02/01/2016 Height 62.5 inches 5'2.50" Weight 205.00 lb Pain Level 6 BMI (Body Mass Index) 36.9 kg/m2 01/27/2016 Height 62.5 inches 5'2.50" Weight 205.00 lb Pain Level 5 BMI (Body Mass Index) 36.9 kg/m2 12/26/2015 Body Temperature 99.0 F 12/26/2015 Height 62.5 inches 5'2.50" Weight 205.00 lb BMI (Body Mass Index) 36.9 kg/m2 12/02/2015 Height 62.5 inches 5'2.50" Weight 205.00 lb Heart Rate 103 /min BP Systolic 148 mmHg BP Diastolic 80 mmHg BMI (Body Mass Index) 36.9 kg/m2 11/09/2015 Height 62.5 inches 5'2.50" Weight 205.00 lb Heart Rate 100 /min BP Systolic 152 mmHg BP Diastolic 70 mmHg BMI (Body Mass Index) 36.9 kg/m2 10/10/2015 Height 62.5 inches 5'2.50" Weight 205.00 lb Heart Rate 98 /min BP Systolic 151 mmHg BP Diastolic 72 mmHg BMI (Body Mass Index) 36.9 kg/m2 12/30/2014 Height 63.5 inches 5'3.50" Weight 206.00 lb Heart Rate 90 /min BP Systolic Sitting 124 mmHg BP Diastolic Sitting 63 mmHg Pain Level 4 BMI (Body Mass Index) 35.9 kg/m2 11/11/2014 Height 63.5 inches 5'3.50" Weight 205.00 lb Heart Rate 86 /min BMI (Body Mass Index) 35.7 kg/m2 11/01/2014 Height 63.5 inches 5'3.50" Weight 205.00 lb Heart Rate 86 /min BP Systolic 152 mmHg BP Diastolic 82 mmHg BMI (Body Mass Index) 35.7 kg/m2 10/29/2014 Height 63 inches 5'3" Weight 292.00 lb Heart Rate 82 /min BP Systolic 136 mmHg BP Diastolic 52 mmHg BMI (Body Mass Index) 51.7 kg/m2 08/31/2014 Height 62 inches 5'2" Weight 196.00 lb BMI (Body Mass Index) 35.8 kg/m2 08/11/2014 Height 62 inches 5'2" Weight 196.00 lb Body Temperature 98.7 F BMI (Body Mass Index) 35.8 kg/m2 08/04/2014 Height 62 inches 5'2" Weight 196.00 lb Heart Rate 87 /min Pain Level 2 BMI (Body Mass Index) 35.8 kg/m2 Results Test Date Test Result H/L Range Note Laboratory test 11/27/2016 Point of Care 150 mg/dL High 74-106 1 finding Glucose Laboratory test 12/02/2015 Partial Thrombo 33.0 seconds 26.0-36.3 2, 3 finding Time PTT Comp Metabolic Panel 12/02/2015 Sodium 133 mmol/L 133-145 2 Potassium 4.4 mmol/L 3.5-5.0 2 Chloride 100 mmol/L Low 101-111 2 Co2 Carbon Dioxide 25 mmol/L 22-32 2 Anion Gap 8 mmol/L 2-11 2 Glucose 180 mg/dL High 70-100 2 Blood Urea Nitrogen 18 mg/dL 6-24 2 Creatinine 0.78 mg/dL 0.51-0.95 2 BUN/Creatinine Ratio 23.1 High 8-20 2 Calcium 9.6 mg/dL 8.6-10.3 2 Total Protein 7.4 g/dL 6.4-8.9 2 Albumin 4.2 g/dL 3.2-5.2 2 Globulin 3.2 g/dL 2-4 2 Albumin/Globulin Ratio 1.3 1-3 2 Total Bilirubin 0.60 mg/dL 0.2-1.0 2 Alkaline Phosphatase 74 U/L 34-104 2 Alt 23 U/L 7-52 2 Ast 21 U/L 13-39 2 Egfr Non- 72.4 >60 2 Egfr 93.1 >60 2, 4 Type & Screen 12/02/2015 Patient Blood Type O Positive 2 Antibody Screen NEGATIVE 2 Laboratory test 12/02/2015 Urine Culture And SEE RESULT 2, 5 finding Sensitivities BELOW Inr/Protime 12/02/2015 Inr 1.01 0.89-1.11 2 Urinalysis Profile 12/02/2015 Urine Color Gabby 2 Urine Appearance Cloudy 2 Urine Specific [place] 1.021 1.010-1.030 2 Urine pH 5.0 5-9 2 Urine Urobilinogen Negative Negative 2 Urine Ketones Negative Negative 2 Urine Protein Negative Negative 2 Urine Leukocytes Negative Negative 2 Urine Blood Negative Negative 2 Urine Nitrite Negative Negative 2 Urine Bilirubin Negative Negative 2 Urine Glucose Negative Negative 2 CBC No Diff 12/02/2015 White Blood Count 7.9 10^3/uL 3.5-10.8 2 Red Blood Count 4.84 10^6/uL 4.0-5.4 2 Hemoglobin 12.8 g/dL 12.0-16.0 2 Hematocrit 40 % 35-47 2 Mean Corpuscular Volume 83 fL 80-97 2 Mean Corpuscular Hemoglobin 26 pg Low 27-31 2 Mean Corpuscular HGB Conc 32 g/dL 31-36 2 Red Cell Distribution Width 17 % High 10.5-15 2 Platelet Count 231 10^3/uL 150-450 2 Mean Platelet Volume 8 um3 7.4-10.4 2 Laboratory test finding 08/15/2015 Vitamin D Total 25(Oh) 22.6 ng/mL Low 30-50 Laboratory test finding 11/01/2014 Urine Random 109.89 mg/dL Creatinine Liver Function Panel 11/01/2014 Direct Bilirubin 0.10 mg/dL 0.03-0.18 Indirect Bilirubin 0.5 mg/dL 0.3-1.0 Lipid Profile (Trig/Chol/HDL) 11/01/2014 Triglycerides 89 mg/dL 6 Cholesterol 141 mg/dL 7 HDL Cholesterol 56.0 mg/dL 8 LDL Cholesterol 67 mg/dL 9 Comp Metabolic Panel 11/01/2014 Sodium 136 mmol/L 133-145 Potassium 4.0 mmol/L 3.5-5.0 Chloride 101 mmol/L 101-111 Co2 Carbon Dioxide 28 mmol/L 22-32 Anion Gap 7 mmol/L 2-11 Glucose 178 mg/dL High 70-100 Blood Urea Nitrogen 15 mg/dL 6-24 Creatinine 0.72 mg/dL 0.51-0.95 BUN/Creatinine Ratio 20.8 High 8-20 Calcium 9.1 mg/dL 8.6-10.3 Total Protein 6.9 g/dL 6.4-8.9 Albumin 3.9 g/dL 3.2-5.2 Globulin 3.0 g/dL 2-4 Albumin/Globulin Ratio 1.3 1-3 Total Bilirubin 0.60 mg/dL 0.2-1.0 Alkaline Phosphatase 92 U/L 34-104 Alt 17 U/L 7-52 Ast 17 U/L 13-39 Egfr Non- 79.6 >60 Egfr 102.4 >60 10 CBC Auto Diff 11/01/2014 White Blood Count 6.1 10^3/uL 4.8-10.8 Red Blood Count 4.31 10^6/uL 4.0-5.4 Hemoglobin 11.8 g/dL Low 12.0-16.0 Hematocrit 36 % 35-47 Mean Corpuscular Volume 84 fL 80-97 Mean Corpuscular Hemoglobin 28 pg 27-31 Mean Corpuscular HGB Conc 33 g/dL 31-36 Red Cell Distribution Width 14 % 10.5-15 Platelet Count 272 10^3/uL 150-450 Mean Platelet Volume 9 um3 7.4-10.4 Abs Neutrophils 3.7 10^3/uL 1.5-7.7 Abs Lymphocytes 1.7 10^3/uL 1.0-4.8 Abs Monocytes 0.5 10^3/uL 0-0.8 Abs Eosinophils 0.2 10^3/uL 0-0.6 Abs Basophils 0.1 10^3/uL 0-0.2 Abs Nucleated RBC 0.01 10^3/uL Granulocyte % 59.9 % 38-83 Lymphocyte % 27.3 % 25-47 Monocyte % 8.1 % 1-9 Eosinophil % 3.4 % 0-6 Basophil % 1.3 % 0-2 Nucleated Red Blood Cells % 0.1 1 Medical Physicist: [id number] VALENCIA CANDACE 2 AA 12/12 3 AA 12/12 4 Because ethnic data is not always readily available, this report includes an eGFR for both -Americans and non- Americans. The National Kidney Disease Education Program (NKDEP) does not endorse the use of the MDRD equation for patients that are not between the ages of 18 and 70, are , have extremes of body size, muscle mass, or nutritional status, or are non- or non-. According to the National Kidney Foundation, irrespective of diagnosis, the stage of the disease is based on the level of kidney function: Stage Description GFR(mL/min/1.73 m(2)) 1 Kidney damage with normal or decreased GFR 90 2 Kidney damage with mild decrease in GFR 60-89 3 Moderate decrease in GFR 30-59 4 Severe decrease in GFR 15-29 5 Kidney failure <15 (or dialysis) 5 SEE RESULT BELOW Name: LOLA SRINIVASAN : [address]: Anastasia Patel MD Acct: [id number] Unit: [id number] AGE: 75 Location: [facility] Re12/02/15 SEX: F Status: REG REF SPEC: [id number] SHANELL: 12/02/15 [facility] [address]: Anastasia Patel MD REQ: [id number] RECD: 12/02/15 STATUS: COMP JEAN DR: Casey Mary MD _ SOURCE: URINE SPDESC: ORDERED: Urine Culture QUERIES: Urine Source: Clean Catch Procedure Result Reported Site Urine Culture Final 12/03/15- 1316 ML No Growth (<1,000 CFU/mL) * ML - MAIN LAB ([facility]) . END OF REPORT * ML=Testing performed at Main Lab DEPARTMENT OF PATHOLOGY, [address] [place] [address] Cholo Hoffmann M.D. Director [facility] # [id number] 6 Desirable <150 Borderline high 150-199 High 200-499 Very High >500 7 Desirable <200 Borderline high 200-239 High >239 8 Low <40 Desirable: 40-60 High: >60 9 Desirable <100 Near Optimal 100-129 Borderline high 130-159 High 160-189 Very High >189 10 Because ethnic data is not always readily available, this report includes an eGFR for both -Americans and non- Americans. The National Kidney Disease Education Program (NKDEP) does not endorse the use of the MDRD equation for patients that are not between the ages of 18 and 70, are , have extremes of body size, muscle mass, or nutritional status, or are non- or non-. According to the National Kidney Foundation, irrespective of diagnosis, the stage of the disease is based on the level of kidney function: Stage Description GFR(mL/min/1.73 m(2)) 1 Kidney damage with normal or decreased GFR 90 2 Kidney damage with mild decrease in GFR 60-89 3 Moderate decrease in GFR 30-59 4 Severe decrease in GFR 15-29 5 Kidney failure <15 (or dialysis) Procedures Date CPT Code Description Status 02/13/201799531 Inject/Drain Joint/Bursa Small Completed 11/27/2016 52004 Open TX Distal Radial Extra-Ar Completed 11/27/2016 17109 Open TX Distal Radial Extra-Ar Completed 11/12/2016 42051 Inject/Drain Joint/Bursa Major Completed 11/05/2016 60720 Inject/Drain Joint/Bursa Major Completed 10/29/201673254 Inject/Drain Joint/Bursa Major Completed 08/17/201677211 Inject/Drain Joint/Bursa Major Completed 07/20/2016 38148 EKG, Interpretation Only Completed 04/30/201644334 Inject/Drain Joint/Bursa Major Completed 12/13/2015 31079 TKR Total Knee Replacement Completed 12/13/2015 50628 TKR Total Knee Replacement Completed 11/07/2015 40896 Treadmill Interp/Report Only Completed 11/07/2015 19600 Stress Test Supervsn W/Out I/R Completed 12/30/2014 98194 Inject Tendon Sheath Or Ligament Aponeurosis Eg Plantar Completed Fascia 11/02/2014 22136 FX Ulna Proximal (Olecranon) Open TX W/Wo Fixation Completed 11/02/2014 24840 FX Ulna Proximal (Olecranon) Open TX W/Wo Fixation Completed 10/29/2014 49682 Rad Exam; Elbow, Comp Completed 10/29/2014 12873 Rad Shoulder Comp, Min. 2 Views Completed 08/11/2014 42460 Rad Exam; Wrist, Comp, Min 3 Views Completed 08/11/2014 15497 Rad Exam; Wrist, Comp, Min 3 Views Completed 08/04/2014 15924 Closed TX Metacarpal FX Single W/O Manipulation, Ea Completed Bone Encounters Type Date Location Provider CPT E/M Dx Office Visit 02/14/2018 [facility] M.D. 50353 M16.11 11:30a Asad M25.551 Office Visit 02/13/2017 1:30p [facility]ia Whalen 50638 S52.551D Of Asad Chatman M18.11 M65.831 Office Visit 11/22/2016 1:30p [facility] Whalen 77204 S52.551A Of Asad Chatman Office Visit 07/20/2016 4:03p [facility] Jina Hernandez, 27413 J44.1 Assoc, Zheng Chatman E11.9 Office Visit 06/18/2016 11:15a [facility] M.D. 52994 M25.562 Asad M17.12 Z96.651 Office Visit 11/09/2015 11:00a [facility] M.D. 58027 R42 Asad M17.11 M25.561 M25.461 Office Visit 11/07/2015 10:30a [facility] Assoc, Stephen Lee M.D. 95663 I20.8 Hospitalists E11.9 R42 R06.02 Office Visit 10/10/2015 8:00a [facility] M.D. 20853 M17.11 C.Elizabeth M25.561 M25.461 Office Visit 10/29/2014 1:15p [facility] M.D. 81973 719.42 C.Elizabeth Plan of Care Future Appointment(s):03/24/2018 2:15 pm - Anastasia Patel M.D. at [facility]03/13/2018 3:30 pm - Mykel Oneil PA-C at [facility]03/13/2018 3:30 pm - LOU Madrigal at [facility]03/13/2018 3:30 pm - Anastasia Ptael M.D. at [facility]02/28/2018 - Anastasia Patel M.D.M16.11 Unilateral primary osteoarthritis, right hipNew Medication:Tramadol HCL 50 mgFollow up:Follow up: 2 weeks after elaybdoP80.551 Pain in right hip
--- OUTSIDE RECORDS SUMMARY | 2018-03-14 13:20 | XMS REPORT ---
:1940 External Reference #:[id number] Author Organization [employer] Address [address] [facility] [address] [place] [address] Phone [phone] Care Team Providers Name Role Phone Casey Mary MD Primary Care Physician Unavailable Payers Type Date Identification Payment Subscriber Numbers Provider Health Maintenance Effective: Policy Number: Medicare Antonino Masters (HMO) 10/07/2013 [id number] [facility] Number: [id number] [address] [address] PayID: [id number] WeslyJUAN tejada [id number] Problems Date Description Provider Status Onset: 02/14/2018 Localized, primary osteoarthritis of the Anastasia Patel M.D. Active pelvic region and thigh Onset: 03/12/2016 Aftercare following joint replacement Anastasia Patel M.D. Active surgery Onset: 10/10/2015 Localized, primary osteoarthritis Anastasia Patel M.D. Active Family History Date Family Member(s) Problem(s) Comments [...] active 02/14/2018 Influenza Virus Vaccine, Inactivated active W-Awwonjmn-62 (H1N1) Strain / Influenza Virus Vaccine, Inactivated P-Rpdxytd-280-2007 (H3N2) (U-Fauflqeb-40-2007-Like) Strain / Influenza Virus Vaccine, Inactivated F-Panwcdq-8 Strain Medications Medication Date Status Form Strength Qnty SIG Indications Ordering Provider Meloxicam 04/30 Active Tablets 7.5mg 30tab take 1 tab M17.12 Helen /2016 s by mouth Bordoni, qdaily with [employer] food Glipizide ER Active Tablets 5mg 1 by mouth Unknown / ER 24HR every morning Atorvastatin Active Tablets 20mg take 1 Unknown Calcium /0000 tablet at bedtime Buspirone HCL Active Tablets 7.5mg 1 by mouth Unknown /0000 daily Citalopram Active Tablets 40mg 1 by mouth Unknown Hydrobromide / every day Omeprazole Active Capsules 40mg 1 by mouth Unknown / DR twice a day Montelukast Active Tablets 10mg 1 by mouth Unknown Sodium / every day Ventolin HFA Active Aerosol 108(90Bas 2 puffs by Unknown /0000 e) mouth four mcg/Act times a day as needed Fish Oil Active Capsules 1000mg 1 by mouth Unknown / every day Sumatriptan Active Solution 5mg/Act 1 spray per Unknown /0000 nostril x 1 , may repeat x 1 in 24 hours Calcium 500 + D Active Tablets 500-125mg twice a day Unknown /0000 -Unit Lantus Active Unknown / Advair HFA Active Aerosol 115-21mcg 2 puff twice Unknown /0000 /Act a day Bupropion HCL Active Tablets 100mg take 1 Unknown /0000 tablet daily Cholecalciferol Active Unknown /0000 Trulicity Active Solution 0.75mg/0. sc weekly Unknown /0000 Pen-Injec 5ML t Lortab 11/22 Hx Tablets 5-325mg 30tab 1-2 tab by Dalia /2017 s mouth every Whalen, - 4-6 hours as M.D. 02/13 needed pain /2017 Lortab 06/18 Hx Tablets 5-325mg 90tab 1 or 2 M25.562 s tablets q8 Jorge, - hours as M.D. 02/13 needed pain /2017 [place] 12/16 Hx Tablets 5-325mg 60tab 1-2 by mouth s every 4 to 6 Bordoni, - hours as [employer] 03/11 needed Tramadol HCL 12/16 Hx Tablets 50mg 60tab 1-2 tablets s every 6 Sidney, - hours as M.D. 01/25 needed Percocet Hx Tablets 5-325mg 60tab take 1-2 s pills every Fady, - 6 hours as M.D. 01/25 needed pain Coumadin 12/02 Hx Tablets 2mg 45tab 1 by mouth M17.11 s daily post Bordoni, - operatively [employer] 03/11 or directed by vns/. do not take this medication prior to surgery Colace 12/02 Hx Capsules 100mg 90cap 1 by mouth 7.11 s up to 3 Bordoni, - times a day [employer] 03/11 as needed for constipation . Comode 10/19 Hx comode- M17.11 dispense Bordoni, - 1m17.11 [employer] 06/17 Elevated Toilet 10/19 Hx dispense 2 M17.11 m17.11 Bordoni, - [employer] 06/17 Indomethacin ER 12/30 Hx Capsules 75mg 60cap 1 by mouth ER s three times Whalen, - a day as M.D. 10/04 swelling or pain Ultracet 11/01 Hx Tablets 37.5-325m 30tab 1 - 2 by g s mouth q4-6hr Whalen, - as needed M.D. 12/05 pain Tramadol HCL 08/11 Hx Tablets 50mg 30tab 1 by mouth s every 4-6 as Whalen, - needed pain M.D. 10/07 Metformin HCL Hx Tablets 500mg 1 by mouth Unknown /0000 twice a day - 02/13 Aspir-Low Hx Tablets 81mg 1 by mouth Unknown /0000 DR every day - 06/17 Ibuprofen Hx Tablets 400mg One by mouth Unknown /0000 three times - a day as 12/05 needed pain Vitamin D- Hx Tablets 3000 1 by mouth Unknown /0000 every day - 02/13 Imitrex Hx Solution 5mg/Act as directed Unknown / - 02/12 Ramipril Hx Capsules 5mg 1 [...] Patel M.D. Depomedrol Administered Injection Dalia 80MG 015 Lurdes Whalen Vital Signs Date Vital Result Comment 02/14/2018 Height 63 inches 5'3" Weight 216.00 [...] Test Result H/L Range Note Laboratory test finding 11/27/2016 Point of Care 150 mg/dL High 74-106 1 Glucose CBC No Diff 12/02/2015 White Blood Count [...] Mean Platelet Volume 8 um3 7.4-10.4 2 Urinalysis Profile 12/02/2015 Urine Color Gabby 2 Urine Appearance Cloudy 2 Urine Specific [place] 1.021 1.010-1.030 2 Urine pH 5.0 5-9 2 Urine Urobilinogen Negative Negative 2 Urine Ketones Negative Negative 2 Urine Protein Negative Negative 2 Urine Leukocytes Negative Negative 2 Urine Blood Negative Negative 2 Urine Nitrite Negative Negative 2 Urine Bilirubin Negative Negative 2 Urine Glucose Negative Negative 2 Inr/Protime 12/02/2015 Inr 1.01 0.89-1.11 2 Laboratory test 12/02/2015 Urine Culture And SEE RESULT BELOW 2, 3 finding Sensitivities Type & Screen 12/02/2015 Patient Blood Type O Positive 2 Antibody Screen NEGATIVE 2 Comp Metabolic Panel 12/02/2015 Sodium 133 mmol/L [...] >60 2 Egfr 93.1 >60 2, 4 Laboratory test 12/02/2015 Partial Thrombo Time 33.0 seconds 26.0-36.3 2 , 5 finding PTT Laboratory test 08/15/2015 Vitamin D Total 25(Oh) 22.6 ng/mL Low 30-50 finding Lipid Profile 11/01/2014 Triglycerides 89 mg/dL 6 (Trig/Chol/HDL) Cholesterol 141 mg/dL 7 HDL Cholesterol 56.0 mg/dL 8 LDL Cholesterol 67 mg/dL 9 Liver Function Panel 11/01/2014 Direct Bilirubin 0.10 mg/dL 0.03-0.18 Indirect Bilirubin 0.5 mg/dL 0.3-1.0 Laboratory test finding 11/01/2014 Urine Random Creatinine 109.89 mg/dL Comp Metabolic Panel 11/01/2014 Sodium 136 mmol/L [...] Nucleated Red Blood Cells % 0.1 1 Block Breaker Operator: SHENG MARIA 2 AA 12/12 3 SEE RESULT BELOW Name: LOLA SRINIVASAN : [address]: Anastasia Patel MD Acct: [id number] Unit: [id number] AGE: 75 Location: [facility] Re12/02/15 SEX: F Status: REG REF SPEC: [id number] SHANELL: 12/02/15-[address] [facility] [address]: Anastasia Patel MD REQ: [id number] RECD: 12/02/15 STATUS: ARNAUD PENA DR: Casey Mary MD _ SOURCE: URINE SPDESC: ORDERED: Urine Culture QUERIES: Urine Source: Clean Catch Procedure Result Reported Site Urine Culture Final 12/03/15- 1317 ML No Growth (<1,000 CFU/mL) * ML - MAIN LAB ([facility]) . END OF REPORT * ML=Testing performed at Main Lab DEPARTMENT OF PATHOLOGY, [address] [place] [address] Cholo Hoffmnan M.D. Director [facility] # [id number] 4 Because ethnic data is not always [...] 5 Kidney failure <15 (or dialysis) 5 AA 12/12 6 Desirable <150 Borderline high 150-199 High [...] dialysis) Procedures Date CPT Code Description Status 02/13/201759912 Inject/Drain Joint/Bursa Small Completed 11/27/2016 96806 Open TX Distal Radial Extra-Ar Completed 11/27/2016 08059 Open TX Distal Radial Extra-Ar Completed 11/12/2016 86565 Inject/Drain Joint/Bursa Major Completed 11/05/2016 75781 Inject/Drain Joint/Bursa Major Completed 10/29/2016 32843 Inject/Drain Joint/Bursa Major Completed 08/17/2016 21288 Inject/Drain Joint/Bursa Major Completed 07/20/2016 87875 EKG, Interpretation Only Completed 04/30/2016 10860 Inject/Drain Joint/Bursa Major Completed 12/13/2015 53459 TKR Total Knee Replacement Completed 12/13/2015 13855 TKR Total Knee Replacement Completed 11/07/2015 83507 Treadmill Interp/Report Only Completed 11/07/2015 12215 Stress Test Supervsn W/Out I/R Completed 12/30/2014 03581 Inject Tendon Sheath Or Ligament Aponeurosis Eg Plantar Completed Fascia 11/02/2014 18009 FX Ulna Proximal (Olecranon) Open TX W/Wo Fixation Completed 11/02/2014 04757 FX Ulna Proximal (Olecranon) Open TX W/Wo Fixation Completed 10/29/2014 93450 Rad Exam; Elbow, Comp Completed 10/29/2014 31758 Rad Shoulder Comp, Min. 2 Views Completed 08/11/2014 69756 Rad Exam; Wrist, Comp, Min 3 Views Completed 08/11/2014 56819 Rad Exam; Wrist, Comp, Min 3 Views Completed 08/04/2014 26872 Closed TX Metacarpal FX Single W/O Manipulation, Ea Completed Bone Encounters Type Date Location Provider CPT E/M Dx Office Visit 02/13/2017 [facility] Dalia Whalen, 00533 S52.551D 1:30p Of Asad Chatman M18.11 M65.831 Office Visit 11/22/2016 1:30p [facility] Dalia Whalen 32617 S52.551A Of Asad Chatman Office Visit 07/20/2016 4:03p [facility] Jina Hernandez, 81808 J44.1 Assoc, Zheng Chatman E11.9 Office Visit 06/18/2016 11:15a [facility] Anastasia Patel M.D. 16691 M25.562 C.MKarenAKaren M17.12 Z96.651 Office Visit 11/09/2015 11:00a [facility] Anastasia Patel M.D. 51977 R42 C.MKarenAKaren M17.11 M25.561 M25.461 Office Visit 11/07/2015 10:30a [facility] Asssae diaz M.D. 97026 I20.8 Hospitalists E11.9 R42 R06.02 Office Visit 10/10/2015 8:00a [facility] Anastasia Patel M.D. 42845 M17.11 C.MTri M25.561 M25.461 Office Visit 10/29/2014 1:15p [facility] Anast[facility] Patel M.D. 89893 719.42 C.M.A. Plan of Care Future Appointment(s):02/28/2018 1:30 pm - Anastasia Patel [facility].D. at [facility]2018 - Anastasia Patel M.D.M25.551 Pain in right hipFollow up:Follow up: 7-10 days before yzdpyknE26.11 Unilateral primary osteoarthritis, right hipM25.562 Pain in left kneeM17.12 Unilateral primary osteoarthritis, left kneeM25.462 Effusion, left knee
[2018-03-14] MEDS ORDERED: fentaNYL* 50 MCG/ML 2 ML VIAL (100 MCG VIAL) ONE (13:21)
[2018-03-14] MEDS ORDERED: fentaNYL* 50 MCG/ML 2 ML VIAL (100 MCG VIAL) IV SLOW PU ONE (13:29)
[2018-03-14] MEDS ORDERED: HYDROmorphone INJ* 2 MG/ML CARPUJECT SYRINGE IV SLOW PU ONE ×2 (13:36→15:53)
--- NOTE | 2018-03-14 13:58 | RAD ---
HISTORY: FALL, facial trauma COMPARISONS: July 05, 2016 TECHNIQUE: Multiple contiguous axial CT scans were obtained of the head without intravenous contrast. FINDINGS: HEMORRHAGE/INFARCT: There is no hemorrhage or acute infarct. MASSES/SHIFT: There is no mass or shift. EXTRA-AXIAL SPACES: There are no extra-axial fluid collections. SULCI AND VENTRICLES: The sulci and ventricles are normal in size and position for the patient's stated age. CEREBRUM: There is a stable chronic lacunar infarct of the right basal ganglia. BRAINSTEM: There are no focal parenchymal abnormalities. CEREBELLUM: There are no focal parenchymal abnormalities. VESSELS: The vessels are grossly normal. PARANASAL SINUSES: The paranasal sinuses are clear. ORBITS: The orbits are unremarkable. BONES AND SOFT TISSUE: No bone or soft tissue abnormalities are noted. OTHER: None IMPRESSION: NO ACUTE INTRACRANIAL PATHOLOGY.
--- NOTE | 2018-03-14 14:06 | RAD ---
INDICATION: Trauma. COMPARISON: Comparison is made with a prior CT of the cervical spine from July 30, 2018. TECHNIQUE: Contiguous axial sections were obtained from the skull base through the T1 vertebra. Images were reconstructed in the sagittal and coronal planes. FINDINGS: There is straightening of the cervical spine with loss of the normal cervical lordosis. No prevertebral soft tissue swelling or fracture is seen. At the C3-C4 level there is mild posterior uncinate process spurring and hypertrophic change within the facet joints. No significant spinal canal narrowing is present. There is mild to moderate bilateral neural foraminal narrowing. At the C4-C5 level there is mild posterior uncinate process spurring and hypertrophic changes within the facet joints. There is mild spinal canal narrowing and mild to moderate bilateral neural foraminal narrowing. At the C5-C6 level there is mild posterior uncinate process spurring. There is mild spinal canal narrowing and mild to moderate bilateral neural foraminal narrowing. At C6-C7 level there is mild to moderate posterior uncinate process spurring. There is mild spinal canal narrowing. There is moderate neural foraminal narrowing on the right side and mild neural foraminal narrowing on the left side. IMPRESSION: 1. STRAIGHTENING OF THE CERVICAL SPINE, NO EVIDENCE FOR FRACTURE OR SUBLUXATION. 2. MODERATE CERVICAL SPONDYLOSIS.
[2018-03-14 14:15] LABS: ABS Basophils 0 10^3/ul (0-0.2); ABS Eosinophils 0.1 10^3/ul (0-0.6); ABS Lymphocytes 2.1 10^3/ul (1.0-4.8); ABS Monocytes 0.6 10^3/ul (0-0.8); ABS Neutrophils 5.8 10^3/ul (1.5-7.7); ABS Nucleated RBC 0 10^3/ul; Eosinophil % 1.5 % (0-6); Hematocrit 38 % (35-47); Hemoglobin 12.8 g/dl (12.0-16.0); Lymphocyte % 24.5 % (25-47); Mean Corpuscular HGB Conc 33 g/dl (31-36); Mean Corpuscular Hemoglobin 28 pg (27-31); Mean Corpuscular Volume 85 fL (80-97); Mean Platelet Volume 7.7 um3 (7.4-10.4); Nucleated Red Blood Cells % 0; Platelet Count 233 10^3/ul (150-450); Red Blood Count 4.53 10^6/ul (4.0-5.4); Red Cell Distribution Width 14 % (10.5-15); White Blood Count 8.8 10^3/ul (3.5-10.8)
[2018-03-14 14:31] LABS: EGFR Non-African American 77.5 (>60)
[2018-03-14] MEDS ORDERED: Midazolam* 1 MG/ML 5 ML VIAL (5 MG) ONE (14:43)
--- NOTE | 2018-03-14 15:12 | RAD ---
Indication: RIGHT shoulder pain post fall. Comparison: No relevant prior exams available on the [facility] PACS for comparison. Technique: Internal rotation AP, external rotation Grashey, scapular Y, axillary views RIGHT shoulder Report: No cortical disruption or suspicious trabecular irregularity to suggest fracture. Normal acromioclavicular and glenohumeral joint alignment. Mild osteophytosis and moderately severe capsular hypertrophy at the acromioclavicular joint. Mild osteophytic lipping at the glenohumeral joint. Negative for calcific tendinopathy or abnormal soft tissue contour. IMPRESSION: 1. Negative for fracture or dislocation. 2. Acromioclavicular and glenohumeral joint osteoarthritis.
--- NOTE | 2018-03-14 15:12 | RAD ---
INDICATION: Right elbow injury. TECHNIQUE: 2 views of the right elbow were obtained. FINDINGS: There is a joint effusion present. There is a transverse fracture of the metaphysis of the distal humerus. The distal fragment is displaced posterior and medial one half shaft diameter and demonstrates posterior and medial angulation relative to the proximal fragment. IMPRESSION: DISPLACED, ANGULATED FRACTURE OF THE DISTAL HUMERUS.
--- NOTE | 2018-03-14 15:13 | RAD ---
HISTORY: FALL COMPARISONS: None VIEWS: 6, Frontal internal rotation, external rotation, outlet, and axillary views of the left shoulder with frontal internal and external rotation views of the left humerus. FINDINGS: BONE DENSITY: There is diffuse osteopenia. BONES: There is a slightly displaced fracture of the surgical neck of the left humerus. JOINTS: There is no arthropathy. ALIGNMENT: There is no dislocation. SOFT TISSUES: Unremarkable. OTHER FINDINGS: There is post surgical change to the proximal ulna. IMPRESSION: SLIGHTLY DISPLACED FRACTURE OF THE PROXIMAL LEFT HUMERUS
[2018-03-14] MEDS ORDERED: Dextrose 50% Syringe 50 ML* 25 GM/50 ML SYRINGE IV PUSH PRN (16:49)
[2018-03-14] MEDS ORDERED: HYDROmorphone INJ* 2 MG/ML CARPUJECT SYRINGE IV SLOW PU PRN (16:50)
[2018-03-14] MEDS ORDERED: Albuterol/Ipratropium NEB.SOL* Albuterol 2.5 MG/Ipratropium 0.5 MG 3 ML INH PRN (16:52)
[2018-03-14] MEDS ORDERED: Ondansetron ODT TAB* 4 MG PO ONE (17:28)
--- NOTE | 2018-03-14 18:53 | ED ---
Herbert Anderson Stephanie, scribed for Jake Omer MD on 03/14/18 at 1341 . Upper Extremity Pain - HPI Summary HPI Summary: The pt is a 78 y/o F BIBA to the ED with c/o bilateral UE pain s/p mechanical fall that occurred at 12:00 today. Symptoms include L knee pain and R elbow pain. The pt states she hit her head. She denies LOC and back pain. The pt reports her most recent meal was at 11:00. - History of Current Complaint Stated Complaint: FALL Time Seen by Provider: 03/14/18 13:19 Hx Obtained From: Patient Mechanism Of Injury: Fall From A Standing Position Onset/Duration: Started Hours Ago - 1.5, Traumatic, Still Present Timing: Constant Severity Currently: Severe Pain Location: Arm - bilateral, Elbow - R elbow Aggravating Factor(s): Nothing Alleviating Factor(s): Nothing Associated Signs & Symptoms: Positive: Negative - LOC. Negative: Back Pain - Allergies/Home Medications Allergies/Adverse Reactions: Allergies Allergy/AdvReac Type Severity Reaction Status Date / Time latex Allergy Severe Rash Verified 02/28/18 17:19 morphine Allergy Severe Hives Verified 02/28/18 17:19 Sulfa (Sulfonamide Allergy Severe Hives Verified 02/28/18 17:19 Antibiotics) Adhesive Tape Allergy Intermediate Rash Verified 02/28/18 16:29 hydrocodone AdvReac Hallucinati Verified 02/28/18 17:21 ons ENVIRONMENTAL/SEASONAL Allergy SNEEZING, Uncoded 07/29/17 20:20 ALLERGY WATERY ITCHY EYES, RUNNY NOSE Flu Virus Vaccine High Dose Allergy Rash And Uncoded 02/28/18 17:18 Itching Home Medications: Home Medications Dulaglutide (NF) [Trulicity (NF)] 0.75 mg SUBCUT WEEKLY 03/14/18 [History Confirmed 03/14/18] Fluticas/Salmet 115/21 HFA(NF) [Advair HFA 115/21 (NF)] 1 puff INH BID 03/14/18 [History Confirmed 03/14/18] Omeprazole CAP* [Prilosec CAP* 20 MG] 40 mg PO BID 03/14/18 [History Confirmed 03/14/18] glipiZIDE TAB.XL* [Glucotrol XL*] 2.5 mg PO BID PRN 03/14/18 [History Confirmed 03/14/18] traMADol TAB* [Ultram*] 50 mg PO Q6HR PRN 03/14/18 [History Confirmed 03/14/18] PMH/Surg Hx/FS Hx/Imm Hx Endocrine/Hematology History: Reports: Hx Diabetes - use medication, Hx Anemia - taking iron Denies: Hx Anticoagulant Therapy, Hx Blood Disorders, Hx Unexplained Bleeding Cardiovascular History: Reports: Hx Hypercholesterolemia Denies: Hx Angina, Hx Hypertension, Hx Myocardial Infarction, Hx Pacemaker/ ICD Respiratory History: Reports: Hx Asthma - uses medication prn GI History: Reports: Hx Gastroesophageal Reflux Disease - use medication, Hx Ulcer - over 15 years ago Denies: Hx Jaundice History: Denies: Hx Dialysis, Hx Renal Disease Musculoskeletal History: Reports: Hx Arthritis - osteo, treats with medication, Hx Back Problems, Other Musculoskeletal History - total knee replacement December 2015, Left hip replacement 2005 Denies: Hx Rheumatoid Arthritis, Hx Osteoporosis, Hx Scoliosis Sensory History: Reports: Hx Cataracts - surgery 2012, Hx Contacts or Glasses - wears glasses Denies: Hx Hearing Aid Opthamlomology History: Reports: Hx Cataracts - surgery 2012, Hx Contacts or Glasses - wears glasses Neurological History: Reports: Hx Migraine - CONTROL WITH MEDS, Hx Transient Ischemic Attacks (TIA) Denies: Hx Headaches, Hx Seizures, Other Neuro Impairments/Disorders Psychiatric History: Reports: Hx Anxiety - CONTROL WITH MEDS, Hx Depression - CONTROL WITH MEDS, Hx Substance Abuse - ALCOHOL, NONE SINCE 2013 - Cancer History Cancer Type, 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 2011 BILATERAL CATARACT EXTRACTION WITH IOL IMPLANT, [place]. 1969 BILATERAL TUBAL LIGATION, [place]. 1983 HYSTERECTOMY, [place]. 2005 LEFT HIP REPLACEMENT, [place] Hx Anesthesia Reactions: Yes - recommend spinal for future surgery Infectious Disease History: No Infectious Disease History: Denies: Traveled Outside the [place] in Last 30 Days - Family History Known Family History: Positive: Diabetes, Other - CVA - Social History Occupation: Unemployed Lives: With Family Alcohol Use: None Alcohol Amount: Recovering alcoholic Hx Substance Use: No Substance Use Type: Reports: None Substance Use Comment - Amount & Last Used: 5-10 cups of coffee/day Hx Tobacco Use: Yes - not currently Smoking Status (MU): Former Smoker Type: Cigarettes Amount Used/How Often: SMOKED IN THE 1960'S WHILE IN COLLEGE Have You Smoked in the Last Year: No Review of Systems Negative: Fever, Chills Negative: Erythema Negative: Sore Throat Negative: Chest Pain Negative: Shortness Of Breath, Cough Negative: Abdominal Pain, Vomiting, Nausea Negative: dysuria, hematuria Musculoskeletal: Negative - back pain Positive: Other - bilateral UE pain, R elbow pain, L knee pain. Negative: Myalgia Negative: Rash Neurological: Negative - dizziness Negative: Syncope All Other Systems Reviewed And Are Negative: Yes Physical Exam - Summary Physical Exam Summary: Constitutional: Well-developed, Well-nourished, Alert. (-) Distressed Skin: Warm, Dry HENT: Normocephalic; Atraumatic Eyes: Conjunctiva normal Neck: Musculoskeletal ROM normal neck. (-) JVD, (-) Stridor, (-) Tracheal deviation Cardio: Rhythm regular, rate normal, Heart sounds normal; Intact distal pulses; The pedal pulses are 2+ and symmetric. Radial pulses are 2+ and symmetric. (-) Murmur Pulmonary/Chest wall: Effort normal. (-) Respiratory distress, (-) Wheezes, (-) Rales Abd: Soft, (-), epigastric tenderness, (-) Distension, (-) Guarding, (-) Rebound Musculoskeletal: L shoulder midshaft to humerus tender. R elbow deformed swollen and tender. Lymph: (-) Cervical adenopathy Neuro: Alert, Oriented x3 Psych: Mood and affect Normal Triage Information Reviewed: Yes Vital Signs On Initial Exam: Initial Vitals Temp Pulse Resp BP Pulse Ox 97.6 F 83 23 187/90 98 03/14/18 13:22 03/14/18 13:22 03/14/18 13:22 03/14/18 13:22 03/14/18 13:22 Vital Signs Reviewed: Yes Diagnostics - Vital Signs Vital Signs Temp Pulse Resp BP Pulse Ox 03/14/18 13:29 22 03/14/18 13:22 97.6 F 83 23 187/90 98 - Laboratory Result Diagrams: 03/14/18 14:08 03/14/18 14:08 Lab Statement: Any lab studies that have been ordered have been reviewed, and results considered in the medical decision making process. - Radiology Elbow XRay Xray Interpretation: Positive (See Comments) Radiology Interpretation Completed By: Radiologist - DISPLACED, ANGULATED FRACTURE OF THE DISTAL HUMERUS. ED physician has reviewed this report. Humerus XRay Xray Interpretation: Positive (See Comments) Radiology Interpretation Completed By: Radiologist - SLIGHTLY DISPLACED FRACTURE OF THE PROXIMAL LEFT HUMERUS. ED physician has reviewed this report. Shoulder XRay (1) Radiology Interpretation Completed By: Radiologist - SLIGHTLY DISPLACED FRACTURE OF THE PROXIMAL LEFT HUMERUS. ED physician has reviewed this report. Shoulder XRay (2) Xray Interpretation: Positive (See Comments) Radiology Interpretation Completed By: Radiologist - 1. Negative for fracture or dislocation. 2. Acromioclavicular and glenohumeral joint osteoarthritis. ED physician has reviewed this report. - CT Brain CT Interpretation: No Acute Changes CT Interpretation Completed By: Radiologist - NO ACUTE INTRACRANIAL PATHOLOGY. ED physician has reviewed this report. Cervical Spine CT Interpretation: Positive (See Comments) CT Interpretation Completed By: Radiologist - 1. STRAIGHTENING OF THE CERVICAL SPINE, NO EVIDENCE FOR FRACTURE OR SUBLUXATION. 2. MODERATE CERVICAL SPONDYLOSIS. ED physician has reviewed this report. Course/Dx - Course Course Of Treatment: No head injury. The pt will require operative clearance in hospital. - Diagnoses Provider Diagnoses: Bilateral humeral fractures - Physician Notifications Discussed Care of Patient With: Casey Mary - Suggests Dr. Bassett accept the pt into the hospital. Time Discussed With Above Provider: 15:26 Instructed by Provider To: Admit As Inpatient Discharge - Sign-Out/Discharge Documenting (check all that apply): Discharge/Admit/Transfer - Admit - Discharge Plan Condition: Stable Disposition: ADMITTED TO [facility] Referrals: Casey Mary MD [Primary Care Provider] - The documentation as recorded by the Herbert blanco Stephanie accurately reflects the service I personally performed and the decisions made by , Jake Omer MD.
[2018-03-14] MEDS: Acetaminophen TAB* 325 MG PO SCH (18:54)
[2018-03-14] MEDS: traMADol TAB* 50 MG PO PRN (19:04)
[2018-03-14] MEDS: Mometasone/Formoter 200/5 MDI INH SCH (20:12)
[2018-03-14] MEDS ORDERED: HYDROmorphone INJ* 2 MG/ML CARPUJECT SYRINGE ONE (20:54)
[2018-03-14 20:58] LABS: Urine Appearance Clear; Urine Blood Negative (Negative); Urine Color Yellow; Urine Ketones Trace (Negative); Urine Protein Negative (Negative); Urine Specific Gravity 1.015 (1.010-1.030); Urine Urobilinogen Negative (Negative)
[2018-03-14] MEDS: HYDROmorphone INJ* 2 MG/ML CARPUJECT SYRINGE IV SLOW PU PRN ×2 (21:00→23:00)
[2018-03-14] MEDS ORDERED: busPIRone TAB* 5 MG PO SCH (21:00)
[2018-03-14] MEDS: Omeprazole CAP* 20 MG PO SCH (21:03)
[2018-03-14] MEDS: busPIRone TAB* 10 MG PO SCH (21:04)
[2018-03-14] MEDS ORDERED: Heparin VIAL(*) 5000 UNITS/ML VIAL (FIVE THOUSAND) SUBCUT SCH (22:00)
--- NOTE | 2018-03-14 23:23 | HP ---
CC: Casey Mary MD; Wil Cooper MD * HISTORY AND PHYSICAL: DATE OF ADMISSION: 03/14/18 PRIMARY CARE PROVIDER: Casey Mary MD ATTENDING PHYSICIAN: Antelmo Bassett MD * (dictated by Misa Sheffield NP) CHIEF COMPLAINT: Bilateral arm pain after fall. HISTORY OF PRESENT ILLNESS: Ms. Srinivasan is a 78-year-old female with past medical history significant for diabetes mellitus, anemia, hyperlipidemia, asthma, breast cancer, GERD, osteoarthritis, migraines, "brain bleed", anxiety and depression. She has been in her usual state of health. She reports 6 months ago having chest pain and being seen in the emergency room. She then reports having chest pain 3 weeks ago that she reports starting as a left chest pressure that radiated to her back and then up into her jaw and the back of her throat and arms. She was preparing to have a right total hip arthroplasty with Dr. Patel yesterday, but this was canceled by her primary care provider who was wanting her to undergo a nuclear cardiac stress test in the setting of her chest pain 3 weeks ago prior to the procedure. She denies any fevers, chills. She reports shortness of breath at baseline and feels that this is at her baseline. She reports an occasional cough. She denies nausea, vomiting, diarrhea, or urinary symptoms. She denies lightheadedness or dizziness. She walks with her walker secondary to her leg pain and her osteoarthritis. She does not attempt to do stairs due to her pain and need to walk with a walker. She does go grocery shopping, but does not carry anything due to her use of a walker. She has had no further chest pain since her chest pain 3 weeks prior. Today, she states that she was getting up and "tripped over her own feet." She felt as though she was going to fall on her entertainment center, so she put both arms out falling on to both arms. She reports striking her head on the entertainment center when she fell also. She denies any loss of consciousness. After her fall, she was reporting bilateral arm pain, left knee pain, and right elbow pain. EMS was called and the patient was brought to the emergency room for further evaluation. While in the emergency room, the patient received fentanyl, Dilaudid. She had images showing a left proximal humerus fracture and a right displaced distal humerus fracture. She had a head CT without acute findings. She had an EKG. This is similar to her previous. She had labs that were unremarkable. She was seen in consultation by Dr. Wil Cooper, who is recommending that she proceed to the operating room tomorrow to repair her right humerus fracture. Hospitalists were asked to evaluate the patient for admission. PAST MEDICAL HISTORY: 1. Diabetes mellitus. 2. Anemia. 3. Hyperlipidemia. 4. COPD - asthma. 5. Bilateral breast cancer. 6. GERD. 7. Osteoarthritis. 8. Migraines. 9. "Brain bleed." 10. Anxiety. 11. Depression. PAST SURGICAL HISTORY: 1. Status post left elbow ORIF. 2. Status post right wrist ORIF. 3. Status post hysterectomy. 4. Status post tubal ligation. 5. Status post right total knee arthroplasty. 6. Status post left total hip arthroplasty. 7. Status post bilateral cataract extractions. 8. Status post bilateral radical mastectomies at 2 different times. HOME MEDICATIONS: Include: 1. Glipizide XL 2.5 mg oral daily, hold for blood glucose less than 140. 2. Tramadol 50 mg oral every 6 hours as needed for pain. 3. BuSpar 10 mg oral twice daily. 4. Omeprazole 40 mg oral twice daily. 5. Singulair 10 mg oral every morning. 6. Metformin ER 500 mg oral twice daily. 7. Lantus insulin 8 units subcutaneous twice daily as needed for blood glucose greater than 140. 78. Advair HFA 115/21 one puff inhalation twice daily. 9. Trulicity 0.75 mg subcutaneous on Saturdays. 10. Celexa 40 mg oral every morning. 11. DuoNeb 1 neb inhalation every 6 hours as needed for shortness of breath or wheeze. 12. Albuterol HFA inhaler 2 puffs inhalation every 4 hours as needed for shortness of breath or wheeze. ALLERGIES: MORPHINE, SULFA, ADHESIVE TAPE, HYDROCODONE, ENVIRONMENTAL ALLERGIES , HIGH DOSE FLU VACCINE, CONTRAST DYE. FAMILY HISTORY: The patient's mother had a history of a CVA. She denies any family history of coronary artery disease. Her father and paternal aunt had a history of diabetes mellitus. Maternal aunt and mother had a history of breast cancer. SOCIAL HISTORY: The patient is a former smoker smoking in the 1960s. 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 She denies recreational drug use. She lives with her . Her daughter, Latricia Zelaya, will be her surrogate decision maker in the event she is unable to make decisions for herself. REVIEW OF SYSTEMS: I performed an 11-point review of systems. All the pertinent positives and negatives are mentioned in the history of present illness. The remaining review of systems is negative. PHYSICAL EXAMINATION GENERAL APPEARANCE: The patient is alert, pleasant, appears to be in no acute distress. VITAL SIGNS: Temperature 97.6, heart rate 83, respiratory rate 23, O2 sat 98% on room air, blood pressure 187/90. HEENT: Normocephalic, atraumatic. Pupils are equal and reactive to light. Extraocular movements are intact. RESPIRATORY: There is no accessory muscle use. The lungs are clear to auscultation, bilateral. CARDIOVASCULAR: Regular rate and rhythm. S1, S2 present. There are no murmurs , rubs, or gallops heard. ABDOMEN: Soft, nontender, nondistended. There are bowel sounds present x4. EXTREMITIES: There is no lower extremity edema. DP and PT pulses are 2+ and symmetric. MUSCULOSKELETAL: There is no clubbing or cyanosis noted. The patient exhibits good strength in all extremities. She is unable to move bilateral upper extremities though secondary to them being splinted. NEUROLOGICAL: The patient is alert and oriented x4. Cranial nerves II through XII are grossly intact. PSYCHOLOGICAL: The patient is calm and cooperative. SKIN: There are no rashes or abnormalities seen. The patient does have an area of ecchymosis above her right eye and on her eyelid. DIAGNOSTIC STUDIES/LABORATORY DATA: Sodium 136, potassium 3.7, chloride 103, CO2 25, BUN 15, creatinine 0.73, glucose 193. White blood cell count 8.8, hemoglobin 12.8, hematocrit 38, platelet count 233. EKG shows a sinus rhythm and a rate of 85. The patient has some borderline ST depression and abnormal T waves in the anterior leads, which is consistent with previous EKGs. She has a q wave in lead III. This is similar to previous EKG from 02/28/18 and 07/20/16. Brain CT from today. Radiologist's impression: No acute intracranial pathology. Right elbow x-ray from today. Radiologist's impression: Diffuse, angulated fracture of the distal humerus. Left humerus x-ray from today. Radiologist's impression: Slightly displaced fracture of the proximal left humerus. Left shoulder x-ray from today. Radiologist's impression: Slightly displaced fracture of the proximal left humerus. Right shoulder from today. Radiologist's impression: Negative for fracture or dislocation. Acromioclavicular and glenohumeral joint osteoarthritis. IMPRESSION: Ms. Srinivasan is a 78-year-old female with past medical history significant for diabetes mellitus, anemia, hyperlipidemia, chronic obstructive pulmonary disease, bilateral breast cancer, gastroesophageal reflux disease, osteoarthritis, migraines, "brain bleed", anxiety, depression who presents to the emergency room today after mechanical fall resulting in bilateral humerus fractures. She will be admitted as an inpatient for bilateral humerus fractures. ASSESSMENT/PLAN: 1. Bilateral humerus fractures. The patient has already been seen in consultation by Orthopedic Surgery. She will be nonweightbearing on her arms. The plan is to take to her to the operating room to repair her right distal humerus fracture tomorrow. She will be provided with pain control and placed on standing Tylenol, as needed Toradol, and as needed IV Dilaudid. In regards to surgery, she has an RCRI score of 2 points placing her at class 3 risk and a 6.6% risk of a cardiac event. She has a MET score of 2 to 2.5. She had a chest x-ray on 02/26/18 showing chronic obstructive pulmonary disease and no acute process. She had an EKG showing a sinus rhythm, Q wave in lead III and anterior T wave depression that is consistent with previous EKGs. As she needs no further cardiac workup at this time. The patient is medically optimized for surgery and may proceed to the operating room when Orthopedics is ready. 2. Diabetes mellitus. The patient will have glucose checked a.c. and h.s. She will have lispro sliding scale. I am going to hold her home glipizide, Trulicity, and metformin. I will follow her glucoses at least overnight and then plan to place her on Lantus tomorrow based on her glucoses. 3. Anemia. The patient is not currently anemic and appears to be at her baseline. We will continue to trend her H and H in the setting of bilateral humerus fractures and surgery tomorrow. 4. Hyperlipidemia. The patient is not currently on medications. 5. Chronic obstructive pulmonary disease and asthma. There are no signs of a chronic obstructive pulmonary disease exacerbation at this time. Continue as needed DuoNeb and albuterol. We will continue her on Advair or hospital substitute and home Singulair. 6. Gastroesophageal reflux disease. Continue omeprazole. 7. Osteoarthritis. Continue tramadol as needed for her pain. 8. History of migraines. This is not a current issue. 9. Anxiety and depression. Continue home BuSpar and Celexa. 10. Fluids, electrolytes, and nutrition. She will be on a consistent carbohydrate diet, n.p.o. after midnight for surgery in the morning. 11. Code status. Full code. 12. DVT prophylaxis. She is a highest risk. She will get a dose of subcu heparin tonight and then we will hold until after surgery at which time she will be placed on DVT prophylaxis per Orthopedics. She will also have SCDs. 13. Disposition. Inpatient. TIME SPENT: Time for this admission was approximately 60 minutes, greater than half of that was spent [id number] with the patient and family discussing medications, past medical history, and the events leading up to her arrival today, performing a physical examination. The case has been reviewed with the attending, Dr. Bassett, who agrees with the plan of care. Reviewed by MURTAZA BAEZ 03/15/18 1622 [id number]/[facility] #: [id number] JASMEET
--- NOTE | 2018-03-14 23:48 | HP ---
HISTORY AND PHYSICAL: DATE OF ADMISSION: 03/14/18 CHIEF COMPLAINT: Right elbow and left shoulder fractures. HISTORY OF PRESENT ILLNESS: Lola had a fall earlier today. She is having pain in both upper ext remities. X-rays in ER revealed a right distal humerus and a left proximal humerus fractures. I was consulted. She is being seen by the medical team. She recently had an ORIF of her right distal rad ius and did good with that. That was back in November 2016. She has a history of bilateral mastectom ies in the s for breast cancer. She did have lymph node dissection. She has never had problems wi th lymphedema. She also has left total hip and right total knee. There was recent concern and she w as scheduled for a stress test in preparation for another total joint arthroplasty. Now, she has had this fall and is here in the hospital. PAST MEDICAL HISTORY: Positive for: 1. Diabetes, which she states is well controlled. 2. Hypertension. 3. History of breast cancer. 4. COPD, although she has not smoked since she was in her 20s. 5. Asthma. 6. GERD. 7. Depression. 8. Anxiety. PAST SURGICAL HISTORY: 1. Hysterectomy. 2. Tubal ligation. 3. Bilateral mastectomies. 4. Left total hip arthroplasty. 5. Right total knee arthroplasty. 6. Cataract removal. 7. ORIF of the right distal radius in November 2016. CURRENT MEDICATIONS: Include: 1. Meloxicam. 2. Glipizide. 3. Atorvastatin. 4. Buspirone. 5. Citalopram. 6. Omeprazole. 7. Montelukast. 8. Ventolin. 9. Fish oil. 10. Sumatriptan. 11. Calcium. 12. Metformin. 13. [place]-3. 14. Vitamin B12. ALLERGIES: SULFA, LATEX, TAPE, FLUZONE, MORPHINE, HYDROCODONE. FAMILY HISTORY: Reviewed and noncontributory. SOCIAL HISTORY: She lives with her . She does not smoke or use drugs. She is recovering alc oholic for the last 7 years. REVIEW OF SYSTEMS: Positive for anxiety and bilateral arm pain. She also has chronic right hip and left knee pain. Otherwise, a full 14-point review of systems was conducted and was negative. PHYSICAL EXAMINATION GENERAL: Awake and alert, very pleasant. MUSCULOSKELETAL: A full secondary survey was conducted. The only thing that I could find that was t norm was right elbow and the left shoulder. She has quit a bit of tenderness and some deformity in the right arm. NEURO: The AIN, PIN and ulnar motor function is intact in the right arm and on the left arm. SKIN: Intact. There is no bleeding or lacerations. IMAGING: Right elbow x-rays were reviewed. She has a displaced T-type intraarticular distal humeru s fracture with quite a bit of displacement at the articular surface. X-rays of the left shoulder an d humerus were reviewed. She has a moderately displaced left surgical neck fracture of the proximal humerus. IMPRESSION: 1. Left shoulder surgical neck fracture. This is in some varus and there is certainly some translat ion of the shaft with respect to the humeral head, although there is reasonable apposition. 2. Right T-type intraarticular displaced distal humerus fracture. PLAN: Certainly, the right elbow is going to need surgery. It will not do well at all without an op eration. She is at high risk for lymphedema, but she has already had ORIF of the right distal radius and did not have any episodes. She has not had lymphedema for the last 20 years, we will just have to accept that. She understands that and she wants to accept that risk. With regards to the left pr oximal humerus, I think I will talk to couple of colleagues in the poly-trauma setting, she may do be tter with surgical fixation. She is going to be quite laid up for quite some time and as much mobili ty of either arm that we can give her the better. But for now, we will plan to address the distal hu merus first. The plan will be for ORIF right intraarticular distal humerus fracture. [id number]/[facility] #: [id number]
[2018-03-15] MEDS: Acetaminophen TAB* 325 MG PO SCH ×4 (00:01→17:21)
[2018-03-15] MEDS: traMADol TAB* 50 MG PO PRN ×3 (01:16→18:22)
[2018-03-15 05:55] LABS: ABS Basophils 0.1 10^3/ul (0-0.2); ABS Eosinophils 0.1 10^3/ul (0-0.6); ABS Lymphocytes 2.2 10^3/ul (1.0-4.8); ABS Monocytes 0.9 10^3/ul (0-0.8); ABS Neutrophils 6.1 10^3/ul (1.5-7.7); ABS Nucleated RBC 0 10^3/ul; Eosinophil % 0.9 % (0-6); Hematocrit 35 % (35-47); Hemoglobin 11.6 g/dl (12.0-16.0); Lymphocyte % 23.3 % (25-47); Mean Corpuscular HGB Conc 34 g/dl (31-36); Mean Corpuscular Hemoglobin 28 pg (27-31); Mean Corpuscular Volume 84 fL (80-97); Mean Platelet Volume 7.6 um3 (7.4-10.4); Nucleated Red Blood Cells % 0.1; Platelet Count 205 10^3/ul (150-450); Red Blood Count 4.09 10^6/ul (4.0-5.4); Red Cell Distribution Width 14 % (10.5-15); White Blood Count 9.3 10^3/ul (3.5-10.8)
[2018-03-15] MEDS ORDERED: Famotidine IV* 10 MG/ML 2 ML (20 mg) IV ONE (06:00)
[2018-03-15 06:19] LABS: EGFR Non-African American 95.4 (>60)
[2018-03-15] MEDS: Insulin LISPRO* 1 UNITS UNIT SUBCUT SCH ×3 (07:09→17:35)
[2018-03-15] MEDS: Mometasone/Formoter 200/5 MDI INH SCH ×2 (07:34→20:51)
[2018-03-15] MEDS: Citalopram TAB* 40 MG PO SCH (07:35)
[2018-03-15] MEDS: busPIRone TAB* 10 MG PO SCH ×2 (07:35→20:55)
[2018-03-15] MEDS: Omeprazole CAP* 20 MG PO SCH ×2 (07:35→20:54)
[2018-03-15] MEDS: Montelukast Sodium TAB* 10 MG PO SCH (07:35)
[2018-03-15] MEDS: HYDROmorphone INJ* 2 MG/ML CARPUJECT SYRINGE IV SLOW PU PRN (08:07)
[2018-03-15] MEDS ORDERED: Naloxone* 0.4 MG/ML 1 ML VIAL IV PRN (13:04)
[2018-03-15] MEDS ORDERED: Acetaminophen IV 1GM/100ML * 1,000 MG/100 ML VIAL IVPB ONE (13:04)
[2018-03-15] MEDS ORDERED: Ondansetron INJ* 2 MG/ML VIAL IV PRN (13:04)
[2018-03-15] MEDS ORDERED: HYDROmorphone INJ* 2 MG/ML CARPUJECT SYRINGE IV PRN (13:04)
[2018-03-15] MEDS ORDERED: Vancomycin(*) 1,000 MG VIAL ONE (14:28)
[2018-03-15] MEDS ORDERED: Acetaminophen IV 1GM/100ML * 100 ML ONE (15:33)
--- NOTE | 2018-03-15 16:30 | RAD ---
CPT II Codes: G9500 INDICATION: Right elbow ORIF TECHNIQUE: Intraoperative fluoroscopy was provided during ORIF of the right elbow. FINDINGS: 6 spot films depict the pelvic plate and screw fixators applied to the distal right humerus and proximal right ulna.. Fluoroscopy time: 6.1 seconds IMPRESSION: As above.
--- NOTE | 2018-03-15 17:46 | OP ---
DATE OF OPERATION: 03/15/18 - ROOM #[id number] DATE OF : 44 SURGEON: Wil Cooper MD COMPRESSION MOLDING MACHINE TENDER: LOU Slater. An visitor use assistant was needed for the procedure to aid in positioning of the arm and retraction. ANESTHESIOLOGIST: Anette Gonzalez MD ANESTHESIA: General. PRE-OP DIAGNOSIS: Right intraarticular T-type distal humerus fracture. Left proximal humerus fracture. POST-OP DIAGNOSIS: Right intraarticular T-type distal humerus fracture. Left proximal humerus fracture. OPERATIVE PROCEDURE: 1. Open reduction and internal fixation of right intraarticular distal humerus fracture. 2. Closed treatment of left proximal humerus fracture. INDICATIONS: Lola had a fall. She fractured the right distal humerus and the left proximal humerus. We talked about treatment options. Certainly, the displaced intraarticular fracture needs to be addressed. She is diabetic. She is high risk for infection. She understands this. Given the amount of displacement of the distal humerus, she is very unlikely to do well with closed treatment. She therefore, wanted to proceed. The left humerus is actually causing her more pain and I will decide what to do with that later. ESTIMATED BLOOD LOSS: 50 mL. COMPLICATIONS: None. FINDINGS: See above and below. DESCRIPTION OF PROCEDURE: Lola was seen in the preoperative holding area. The correct side, site, and procedure were identified. We came back to the operating room. She was positioned in the left lateral decubitus position on the OR table. The right arm was draped over an arm fernandes. The arm was prescrubbed, prepped and draped in the usual fashion. A time-out was performed. The arm was exsanguinated with the Esmarch and the tourniquet inflated to 250 mmHg. A longitudinal posterior incision was made. The full-thickness flaps were raised off the triceps tendon and these were raised subperiosteally off the proximal ulna. I went ahead and made a small split in the distal triceps tendon and placed my Synthes variable angle olecranon plate. Two drill holes were placed. I then marked out my olecranon osteotomy. This was performed in chevron fashion with the sagittal saw down to the subchondral bone and then the osteotomy was completed with the osteotome. The retinaculi medially and laterally were released and the triceps together with the olecranon were reflected proximally. Please note that prior to making the olecranon osteotomy , I had done a full decompression of the ulnar nerve and placed a vessel loop around the ulnar nerve and this was retracted out of the way while making the olecranon osteotomy. The fracture hematoma was evacuated. The fracture edges were cleaned. It actually took quite a bit of work to get the articular surface aligned, but ultimately we were able to get it aligned anatomically and a wire crossed it. I then placed a clamp to provide compression. I then placed one 4.0 cannulated screw across the fracture. This was a partially threaded screw. It generated excellent compression at the articular surface. The reduction was anatomic. I then reduced the articular surface back to the shaft and this was held in place with a clamp. I then contoured my posterolateral Synthes distal humerus plate and placed this in the appropriate location and secured it with a couple of provisional K-wires. I then placed multiple unicortical locking screws down to the subchondral bone at the capitellum. The proximal 3.5-mm cortical screws were then placed in a little bit of compression mode so as to gain additional compression across the fracture site. After I had my posterolateral plate placed, I went ahead and put my medial plate in the appropriate location. A couple of distal screws were placed. These were variable angle locking screws. They traversed the fracture site and coursed from medial to lateral. I added an additional locking screw distally. I then placed my cortical screws proximally again in compression mode so as to generate additional compression. Once I had these screws in place, the bone was reduced anatomically and very tightly compressed. It was a very stable construct. We let the tourniquet down as we were over 2 hours on the tourniquet. We got imaging, which confirmed excellent placement of the screws and the anatomic reduction of the joint surface and shaft. After we got our images, we went ahead and reduced the olecranon osteotomy. The plate was placed back into place. The distal cortical screw was placed again to keep the plate up against the bone. I then placed 1 metaphyseal compression screw proximally. It was overdrilled proximally so as to function in lag type fashion. This provided excellent compression across an anatomically reduced osteotomy. I then placed multiple locking screws proximally and a couple of cortical screws distally. The alignment of the osteotomy was anatomic. It was compressed very nicely. The wound was irrigated out. I went ahead and placed a little bit of vancomycin powder along the plates. The periosteum over the olecranon plate was closed. The retinaculi were closed. All but the most proximal aspect of the olecranon plate was able to be covered with soft tissue. I did take an 0 Vicryl suture and repaired the little split in the triceps tendon that I had made. The wound was again irrigated out. I added a little vancomycin powder in the subcutaneous tissue. A 2-0 Vicryl suture was used to reapproximate the subcutaneous tissue. The skin was closed with jess. A 0.25% plain Marcaine infiltrated. The wound was dressed with Xeroform, 4x4's, ABDs, and then a long arm splint with a lateral buttress was applied with the elbow in about 30 degrees of flexion. Tourniquet was never reinflated after it was deflated the first time. The patient was then woken up and taken to the recovery room in stable condition. [id number]/[facility] #: [id number] JASMEET
[2018-03-15] MEDS: ceFAZolin 1 GM in Dextrose (*) 1 GM/50 ML BAG IVPB SCH (19:48)
[2018-03-16] MEDS: Acetaminophen TAB* 325 MG PO SCH ×5 (00:13→23:06)
[2018-03-16] MEDS: traMADol TAB* 50 MG PO PRN ×2 (03:12→09:56)
[2018-03-16] MEDS: ceFAZolin 1 GM in Dextrose (*) 1 GM/50 ML BAG IVPB SCH ×2 (03:13→12:01)
[2018-03-16] MEDS: HYDROmorphone INJ* 2 MG/ML CARPUJECT SYRINGE IV SLOW PU PRN ×2 (08:13→12:54)
[2018-03-16] MEDS: Insulin LISPRO* 1 UNITS UNIT SUBCUT SCH ×3 (08:35→17:28)
[2018-03-16] MEDS: busPIRone TAB* 10 MG PO SCH ×2 (08:36→21:08)
[2018-03-16] MEDS: Citalopram TAB* 40 MG PO SCH (08:37)
[2018-03-16] MEDS: Montelukast Sodium TAB* 10 MG PO SCH (08:37)
[2018-03-16] MEDS: Omeprazole CAP* 20 MG PO SCH ×2 (08:37→21:08)
[2018-03-16] MEDS: Mometasone/Formoter 200/5 MDI INH SCH ×2 (08:40→20:25)
--- NOTE | 2018-03-16 08:44 | RAD ---
INDICATION: Follow-up left humerus fracture COMPARISON: Similar radiograph March 14, 2018 TECHNIQUE: 4 views of the left shoulder were obtained. FINDINGS: Again seen is a minimally impacted fracture through the left humeral surgical neck exhibiting a small degree of varus angulation. The remaining visualized bones are intact and appropriately aligned. IMPRESSION: FRACTURE AT THE LEFT HUMERUS SURGICAL NECK SIMILAR IN APPEARANCE TO MARCH 14, 2018 RADIOGRAPH.
[2018-03-16] MEDS: Magnesium Hydroxide LIQ* 30 ML UDC PO PRN (08:52)
[2018-03-16] MEDS ORDERED: oxyCODONE/Acetamin 5/325 MG* TAB PO PRN (10:06)
--- NOTE | 2018-03-16 10:27 | PN ---
Subjective - Subjective Reason for Note: Consultation Note History: Lola Uriostegui is a primary care patient at my office. She has told me about her presentation and I have also reviewed her admitting H and P, her medical consultion and her hospital/surgical course. She had a mechanical fall at home - struck the right side her head with a right periorbital hematom, fractured her right distal humerus and the surgical neck of her left humerus. Dr. Cooper performed an open reduction and internal fixation of the distal right distal humerus fracture. Today she is have further radiology to her left shoulder to determine if mobility would be facilitated with surgical management. 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 She is therefore dependent for her ADLs, including feeding, washing, toileting, mobilization. Her pain control is good and she has had no problems with nausea. I note she has recently had an episode of atypical chest pain which we were planning to risk stratify as an outpatient prior to surgery to her hip - she tolerated surgery yesterday without any complications. Her blood glucose levels are high at present. Active Problems: Active Problems Fall (Acute) Fracture of distal end of right humerus (Acute) S42.401A Fracture of surgical neck of left humerus (Acute) S42.212A Hyperglycemia due to type 2 diabetes mellitus (Acute) E11.65 Anxiety disorder (Chronic) F41.9 Essential hypertension (Chronic) I10 GERD (gastroesophageal reflux disease) (Chronic) K21.9 History of breast cancer (Chronic) Z85.3 History of intracranial hemorrhage (Chronic) Z86.79 Migraine (Chronic) G43.909 Obesity, Class II, BMI 35.0-39.9, with comorbidity (see actual BMI) (Chronic) E66.01 Osteoarthritis of right knee (Chronic) M17.9 Type 2 diabetes mellitus (Chronic) Current Medications: Current Medications Acetaminophen (Tylenol Tab*) 975 mg PO Q6H [facility]ZBET Last Admin: 03/16/18 05:45 Dose: 975 mg Albuterol/Ipratropium (Duoneb (Albuterol 2.5 Mg/Ipratropium 0.5 Mg)) 1 neb INH Q6H PRN PRN Reason: SOB/WHEEZING Last Admin: 03/15/18 04:11 Dose: 1 neb Buspirone HCl (Buspar Tab*) 10 mg PO BID LIZBET Last Admin: 03/16/18 08:36 Dose: 10 mg Citalopram Hydrobromide (Celexa Tab*) 40 mg PO QAM [facility] Last Admin: 03/16/18 08:37 Dose: 40 mg Dextrose (D50w Syringe 50 Ml*) 12.5 gm IV PUSH .FOR FS < 60 - SS PRN PRN Reason: FS < 60 Hydromorphone HCl (Dilaudid Inj*) 1 mg IV SLOW PU Q2H PRN PRN Reason: PAIN - SEVERE Last Admin: 03/16/18 08:13 Dose: 1 mg Lactated Ringer's (Lactated Ringers 1000 Ml Bag*) 1,000 mls @ 125 mls/hr IV PER RATE [facility] Last Admin: 03/16/18 01:32 Dose: 125 mls/hr Cefazolin Sodium/Dextrose (Kefzol 1 Gm In Dextrose Duplex (*)) 1 gm in 50 mls @ 200 mls/hr IVPB Q8H [facility] Stop: 03/16/18 11:44 Last Admin: 03/16/18 03:13 Dose: 200 mls/hr Insulin Human Lispro (Humalog*) 0 - 10 units SUBCUT AC [facility] PRN Reason: Protocol Last Admin: 03/16/18 08:35 Dose: 1 units Magnesium Hydroxide (Milk Of Magnesia Liq*) 30 ml PO Q6H PRN PRN Reason: PAIN Last Admin: 03/16/18 08:52 Dose: 30 ml Mometasone Furoate/Formoterol Fumar (Dulera 200/5 Mdi*) 1 puff INH BID [facility] PRN Reason: Protocol Last Admin: 03/16/18 08:40 Dose: 1 puff Montelukast Sodium (Singulair Tab*) 10 mg PO QAM [facility] Last Admin: 03/16/18 08:37 Dose: 10 mg Morphine Sulfate (Morphine Inj (Syringe)*) 2 mg IV Q4H ONE Stop: 03/16/18 10:31 Omeprazole (Prilosec Cap*) 40 mg PO BID [facility] Last Admin: 03/16/18 08:37 Dose: 40 mg Oxycodone/Acetaminophen (Percocet 5/325 Tab*) 1 tab PO Q4H PRN PRN Reason: PAIN - MILD TO MODERATE Oxycodone/Acetaminophen (Percocet 5/325 Tab*) 2 tab PO Q4H PRN PRN Reason: PAIN - MODERATE Tramadol HCl (Ultram*) 50 mg PO Q6HR PRN PRN Reason: PAIN Last Admin: 03/16/18 09:56 Dose: 50 mg - Review of Systems Eyes: Positive: Normal Pulmonary: Negative: Cough, Sputum, Wheezing, Respiratory Distress, Shortness of Breath Cardiology: Negative: Chest Pain, Palpitations, Swelling of Ankles Gastroenterology: Negative: Abdominal Pain, Nausea, Vomiting, Change in Bowel Habits Neurology: Negative: Headache, Change in Vision Home Medications: Home Medications Medication Instructions Recorded Confirmed Type Citalopram TAB* [Celexa TAB*] 40 mg PO QAM 07/30/14 03/14/18 History Montelukast Sodium TAB* [Singulair 10 mg PO QAM 07/30/14 03/14/18 History 10 MG TAB*] busPIRone TAB* [Buspar TAB*] 10 mg PO BID 07/30/14 03/14/18 History Albuterol HFA INHALER* [Ventolin 2 puff INH Q4HR PRN 07/20/16 03/14/18 History HFA Inhaler*] Metformin ER (NF) 500 mg PO BID 07/20/16 03/14/18 History Albuterol/Ipratropium NEB.DARON* 1 neb INH Q6H PRN #30 neb.soln 07/21/16 03/14/18 Rx [Duoneb (Albuterol 2.5 MG/Ipratropium 0.5 MG)] Insulin GLARGINE(*) [Lantus(*)] 8 units INJ BID PRN 11/23/16 03/14/18 History Dulaglutide (NF) [Trulicity (NF)] 0.75 mg SUBCUT WEEKLY 03/14/18 03/14/18 History Fluticas/Salmet 115/21 HFA(NF) 1 puff INH BID 03/14/18 03/14/18 History [Advair HFA 115/21 (NF)] Omeprazole CAP* [Prilosec CAP* 20 40 mg PO BID 03/14/18 03/14/18 History MG] glipiZIDE TAB.XL* [Glucotrol XL*] 2.5 mg PO BID 03/14/18 03/14/18 History traMADol TAB* [Ultram*] 50 mg PO Q6HR PRN 03/14/18 03/14/18 History Allergies: Allergies Allergy/AdvReac Type Severity Reaction Status Date / Time latex Allergy Severe Rash Verified 02/28/18 17:19 morphine Allergy Severe Hives Verified 02/28/18 17:19 Sulfa (Sulfonamide Allergy Severe Hives Verified 02/28/18 17:19 Antibiotics) Adhesive Tape Allergy Intermediate Rash Verified 02/28/18 16:29 influenza virus vaccine, Allergy Rash And Verified 03/14/18 17:50 specific Itching Influenza Virus Vaccines Allergy Rash And Verified 03/14/18 17:50 Itching hydrocodone AdvReac Hallucinati Verified 02/28/18 17:21 ons ENVIRONMENTAL/SEASONAL Allergy SNEEZING, Uncoded 07/29/17 20:20 ALLERGY WATERY ITCHY EYES, RUNNY NOSE Objective - Vital Signs Vital Signs: Vital Signs 03/15/18 03/15/18 03/15/18 15:22 15:25 15:26 Temperature 98.4 F Pulse Rate 103 99 Respiratory 18 18 24 Rate Blood Pressure 153/96 139/83 (mmHg) O2 Sat by Pulse 96 95 Oximetry 03/15/18 03/15/18 03/15/18 15:30 15:35 15:46 Temperature Pulse Rate 99 95 93 Respiratory 19 27 16 Rate Blood Pressure 145/72 163/77 155/85 (mmHg) O2 Sat by Pulse 95 93 93 Oximetry 03/15/18 03/15/18 03/15/18 15:50 15:55 16:00 Temperature Pulse Rate 92 91 91 Respiratory 13 14 27 Rate Blood Pressure (mmHg) O2 Sat by Pulse 94 94 95 Oximetry 03/15/18 03/15/18 03/15/18 16:01 16:05 16:10 Temperature Pulse Rate 91 90 89 Respiratory 15 14 14 Rate Blood Pressure 151/76 (mmHg) O2 Sat by Pulse 95 95 95 Oximetry 03/15/18 03/15/18 03/15/18 16:15 16:16 16:30 Temperature 97.0 F Pulse Rate 90 90 97 Respiratory 15 15 18 Rate Blood Pressure 158/67 (mmHg) O2 Sat by Pulse 95 95 95 Oximetry 03/15/18 03/15/18 03/15/18 16:31 16:45 16:46 Temperature Pulse Rate 91 89 86 Respiratory 17 16 14 Rate Blood Pressure 142/74 155/69 (mmHg) O2 Sat by Pulse 96 96 95 Oximetry 03/15/18 03/15/18 03/15/18 17:22 18:08 18:22 Temperature 98.4 F 97.8 F Pulse Rate 90 85 Respiratory 18 16 20 Rate Blood Pressure 157/61 182/60 (mmHg) O2 Sat by Pulse 97 97 Oximetry 03/15/18 03/15/18 03/15/18 18:31 18:59 19:18 Temperature 98.2 F Pulse Rate 86 95 Respiratory 16 18 Rate Blood Pressure 177/54 156/54 (mmHg) O2 Sat by Pulse 98 Oximetry 03/15/18 03/15/18 03/15/18 20:30 20:51 21:06 Temperature 98.6 F Pulse Rate 96 90 Respiratory 16 16 16 Rate Blood Pressure 149/51 (mmHg) O2 Sat by Pulse 98 Oximetry 03/15/18 03/16/18 03/16/18 23:36 03:12 03:20 Temperature 98.4 F 99.2 F Pulse Rate 82 84 Respiratory 16 18 16 Rate Blood Pressure 145/54 153/52 (mmHg) O2 Sat by Pulse 98 99 Oximetry 03/16/18 03/16/18 03/16/18 05:10 07:27 07:35 Temperature 98.7 F Pulse Rate 88 Respiratory 16 16 16 Rate Blood Pressure 152/52 (mmHg) O2 Sat by Pulse 100 100 Oximetry 03/16/18 03/16/18 03/16/18 08:00 08:13 09:56 Temperature Pulse Rate Respiratory 18 20 18 Rate Blood Pressure (mmHg) O2 Sat by Pulse Oximetry - Intake and Output Intake and Output: Intake & Output 03/13/18 03/14/18 03/15/18 03/16/18 11:59 11:59 11:59 11:59 Intake Total 1390 3852 Output Total 1225 5775 Balance 165 -1923 Intake: IV Fluids 990 3192 LR 990 3192 Oral 400 660 Output: Urine 1225 Waters 5775 Other: # Bowel Movements 0 ADLs: Meal Record Start: 03/14/18 17: 24 Freq: Status: Active Protocol: Created 03/14/18 17:24 System (Rec: 03/14/18 17:24 System [id number]) Document 03/15/18 08:28 [id number] (Rec: 03/15/18 08:29 [id number] SSU-C02) Document 03/16/18 09:21 [id number] (Rec: 03/16/18 09:21 [id number] SSU-C11) Intake and Output Start: 03/14/18 13: 28 Freq: Status: Active Protocol: Created 03/14/18 13:28 System (Rec: 03/14/18 13:28 System [id number]) Intake and Output Start: 03/14/18 17: 24 Freq: DAILY@0600,1400,2200 Status: Active Protocol: Created 03/14/18 17:24 System (Rec: 03/14/18 17:24 System [id number]) Document 03/14/18 20:40 [id number] (Rec: 03/14/18 20:40 [id number] SSU-M15) Document 03/14/18 22:33 [id number] (Rec: 03/14/18 22:33 [id number] SSU-C02) Document 03/14/18 22:47 [id number] (Rec: 03/14/18 22:47 [id number] SSU-C02) Document 03/15/18 03:30 [id number] (Rec: 03/15/18 03:31 [id number] SSU-M17) Document 03/15/18 05:33 [id number] (Rec: 03/15/18 05:33 [id number] SSU-M17) Document 03/15/18 07:45 [id number] (Rec: 03/15/18 07:45 [id number] SSU-M14) Document 03/15/18 19:07 [id number] (Rec: 03/15/18 19:07 [id number] SSU-C02) Document 03/15/18 23:51 [id number] (Rec: 03/15/18 23:51 [id number] SSU-M18) Document 03/16/18 05:53 [id number] (Rec: 03/16/18 05:53 [id number] SSU-M07) - Physical Exam General Physical Exam Comment: She is warm and well perfused. She is fully aware of her situation and actively engaged in planning her future management/ discharge plans. She is insightful and realistic. General: No Cyanosis, No Jaundice, No Clubbing Eye Exam: right: Other - Periorbital hematoma, bilateral: EOMI Skin: Normal: Rash Lungs and Chest: Yes: Chest Expansion Full, Chest Expansion Symetrica, Percussion Note Resonant, Vessicular Breath Sounds. No: Crackles, Wheezes Heart Rate and Rhythm: Regular JVP: Not Elevated Additional Cardiovascular: Yes: Normal Heart Sounds. No: Heart Murmur, Pedal Edema Abdominal Exam: Yes: Soft, Bowel Sounds Present. No: Distention, Abdominal Mass , Hepatomegaly, Abdominal Tenderness - Extremities Cranial Nerves II-XII Intact: Yes Limbs: Normal Power - Per injuries - Neuro Orientation: A/O x3 Psychiatric: Normal Speech: Normal Results - Results Lab Results: Laboratory Results - last 24 hr 03/15/18 03/15/18 03/15/18 15:57 17:30 21:46 POC Glucose (mg/dL) 206 H 200 H 220 H 03/16/18 07:29 POC Glucose (mg/dL) 145 H Laboratory Tests 03/15/18 05:42 Sodium 132 L Potassium 3.6 Chloride 98 L Carbon Dioxide 26 Anion Gap 8 BUN 13 Creatinine 0.61 BUN/Creatinine Ratio 21.3 H Glucose 119 H Calcium 8.9 EKG Report: Rate 85 MO 156 QRS 484 QRS 21 Anterior leads early transition. Diffuse repolarization changes. Assessment - Problem List Assessment: Patient Problems Fall (Acute) Fracture of distal end of right humerus (Acute) Fracture of surgical neck of left humerus (Acute) Hyperglycemia due to type 2 diabetes mellitus (Acute) Anxiety disorder (Chronic) Essential hypertension (Chronic) GERD (gastroesophageal reflux disease) (Chronic) History of breast cancer (Chronic) History of intracranial hemorrhage (Chronic) Migraine (Chronic) Obesity, Class II, BMI 35.0-39.9, with comorbidity (see actual BMI) (Chronic) Osteoarthritis of right knee (Chronic) Type 2 diabetes mellitus (Chronic) S/P total knee arthroplasty (Chronic 12/13/15) Plan: Fall (Acute)Fracture of distal end of right humerus (Acute)Fracture of surgical neck of left humerus (Acute) I have discussed her with LOU Jeff for orthopedics. She will have surgical planning on the basis of her imaging of her left humerus fracture today. We are obtaining OT/PT consultations. She is a candidate for PMRU after completion of acute surgical management. Alternatively, she may require sub acute rehab at a SNF. She is likely to require complete assistance with ADLs while her fractures heal Type 2 diabetes mellitus (Chronic)/Hyperglycemia due to type 2 diabetes mellitus (Acute) This is likely situational. Anxiety disorder (Chronic) She is actually fairly calm given the functional gravity of her injuries. I will start her back on her usual basal insulin. If she has further surgery it will be in 2 days. Essential hypertension (Chronic) She is running on the high side - likely related to her pain GERD (gastroesophageal reflux disease) (Chronic) stable History of breast cancer (Chronic) History of intracranial hemorrhage (Chronic) Migraine (Chronic) not bothering her Obesity, Class II, BMI 35.0-39.9, with comorbidity (see actual BMI) (Chronic) S/P total knee arthroplasty (Chronic 12/13/15) I discussed the above with the patient and she agrees with the management plan.
[2018-03-16] MEDS ORDERED: Morphine VIAL* 4 MG/ML VIAL (1 ml vial) IV ONE (10:30)
--- NOTE | 2018-03-16 10:41 | PN ---
Progress Note - Progress Note Date of Service: 03/16/18 SOAP: Subjective: Ms. Uriostegui is a 78 yo female who is sustained R distal humerus and L proximal humerus fractures on 03/14/18. She underwent ORIF with Dr. Cooper on for R distal humerus fracture. She was schedule for R SIVA with Dr. Patel and requires a walker due to OA pain. She report significant improvement in right arm pain after surgery yesterday. She did have severe pain after xray which improved with IV dilaudid. She does report taking Percocet in the past without problems despite of morphine and hydrocodone allergies. No numbness, tingling. Calf pain, chest pain, SOB. Objective: Vital Signs Temp 98.7 F 03/16/18 07:27 Pulse 88 03/16/18 07:27 Resp 18 03/16/18 09:56 BP 152/52 03/16/18 07:27 Pulse Ox 100 03/16/18 07:35 Intake & Output 03/15/18 03/16/18 03/16/18 18:59 06:59 18:59 Intake Total 3250 992 600 Output Total 2125 3575 750 Balance 1125 -2583 -150 Intake: IV Fluids 3190 992 LR 3190 992 Oral 60 600 Output: Urine 675 Waters 1450 3575 750 Laboratory Results - last 24 hr 03/15/18 03/15/18 03/15/18 15:57 17:30 21:46 POC Glucose (mg/dL) 206 H 200 H 220 H 03/16/18 07:29 POC Glucose (mg/dL) 145 H General: WN, WD, NAD, AO, laying comfortably in bed with ice packs on both arms. Daughter at bedside. RUE: Dressing/splint intact with no erythema, swelling, warmth proximally or distally. Able to wiggle fingers without pain. SITLT distally. Brisk capillary refill. LUE: Skin of left shoulder is intact with swelling and slight ecchymosis. Able to flex and extend at wrist, slight flexion/extension at elbow that is limited by pain. Able to move fingers. SITLT distally. 2+ radial pulse. Brisk capillary refill. Assessment: Ms. Uriostegui is a 78 yo female who is sustained R distal humerus and L proximal humerus fractures on 03/14/18. She underwent ORIF with Dr. Cooper on for R distal humerus fracture. Plan: - NWB bilateral UE - 24 hours post-op antibiotics, dose 2/3 given - Added percocet to pain medication per poorly controlled pain earlier today, patient has taken at home without problems. - Upright shoulder films ordered today to review for surgical assessment left side - Patient not able to ambulate without walker due to LE OA, consider PMRU or outpatient rehab on discharge - DVT prophylaxis: heparin, SCD - Lantus dose should be cut in half before surgery.
[2018-03-16 12:04] LABS: Hematocrit 31 % (35-47); Hemoglobin 10.4 g/dl (12.0-16.0); Mean Corpuscular HGB Conc 34 g/dl (31-36); Mean Corpuscular Hemoglobin 29 pg (27-31); Mean Corpuscular Volume 84 fL (80-97); Red Blood Count 3.64 10^6/ul (4.0-5.4); Red Cell Distribution Width 14 % (10.5-15); White Blood Count 9.7 10^3/ul (3.5-10.8)
[2018-03-16 12:12] LABS: INR 1.03 (0.77-1.02)
[2018-03-16 12:29] LABS: EGFR Non-African American 88.6 (>60)
[2018-03-16] MEDS: Insulin GLARGINE(*) 1 UNITS UNIT SUBCUT SCH ×2 (12:30→22:47)
[2018-03-16 12:46] LABS: ABS Basophils 0.1 10^3/ul (0-0.2); ABS Eosinophils 0 10^3/ul (0-0.6); ABS Lymphocytes 2.3 10^3/ul (1.0-4.8); ABS Monocytes 1.1 10^3/ul (0-0.8); ABS Neutrophils 6.2 10^3/ul (1.5-7.7)
[2018-03-16 12:51] LABS: Monocytes % 11 % (0-7)
[2018-03-16 12:54] LABS: Mean Platelet Volume 8.4 um3 (7.4-10.4); Platelet Count 140 10^3/ul (150-450)
[2018-03-16] MEDS: Heparin VIAL(*) 5000 UNITS/ML VIAL (FIVE THOUSAND) SUBCUT SCH ×2 (13:41→22:48)
--- NOTE | 2018-03-16 14:54 | RAD ---
INDICATION: Standing views of the left shoulder to better assess known surgical neck fracture COMPARISON: Similar examination from the same date acquired at 0753 hours TECHNIQUE: 4 views of the left shoulder were obtained at 1424 hours. FINDINGS: Again seen is a minimally impacted fracture at the surgical neck of the left humerus. The small degree of varus angulation is unchanged from the prior radiograph. The remaining visualized bones are intact and appropriately aligned. IMPRESSION: FRACTURE THROUGH THE LEFT HUMERAL SURGICAL NECK DESCRIBED ABOVE NOT SUBSTANTIALLY CHANGED FROM THE MOST RECENT LEFT SHOULDER RADIOGRAPH.
[2018-03-16] MEDS: oxyCODONE/Acetamin 5/325 MG* TAB PO PRN ×2 (16:16→22:53)
[2018-03-17] MEDS: Heparin VIAL(*) 5000 UNITS/ML VIAL (FIVE THOUSAND) SUBCUT SCH ×3 (05:46→21:57)
[2018-03-17] MEDS: Acetaminophen TAB* 325 MG PO SCH ×4 (07:34→23:55)
--- NOTE | 2018-03-17 09:04 | PN ---
Subjective - Subjective Reason for Note: Progress Note History: She is frustrated and crouchy this morning and acknowledges it is situational - and that she has had her anxiolytics yet. She has pain, but this is controlled. She understands the deliberative process that orthopedics are undertaking to make the correct choice re: surgery to left humerus. Active Problems: Active Problems Fall (Acute) Fracture of distal end of right humerus (Acute) S42.401A Fracture of surgical neck of left humerus (Acute) S42.212A Hyperglycemia due to type 2 diabetes mellitus (Acute) E11.65 Anxiety disorder (Chronic) F41.9 Essential hypertension (Chronic) I10 GERD (gastroesophageal reflux disease) (Chronic) K21.9 History of breast cancer (Chronic) Z85.3 History of intracranial hemorrhage (Chronic) Z86.79 Migraine (Chronic) G43.909 Obesity, Class II, BMI 35.0-39.9, with comorbidity (see actual BMI) (Chronic) E66.01 Osteoarthritis of right knee (Chronic) M17.9 Type 2 diabetes mellitus (Chronic) Current Medications: Current Medications Acetaminophen (Tylenol Tab*) 975 mg PO Q6H [facility] Last Admin: 03/17/18 07:34 Dose: Not Given Albuterol/Ipratropium (Duoneb (Albuterol 2.5 Mg/Ipratropium 0.5 Mg)) 1 neb INH Q6H PRN PRN Reason: SOB/WHEEZING Last Admin: 03/15/18 04:11 Dose: 1 neb Buspirone HCl (Buspar Tab*) 10 mg PO BID [facility] Last Admin: 03/16/18 21:08 Dose: 10 mg Citalopram Hydrobromide (Celexa Tab*) 40 mg PO QAM [facility] Last Admin: 03/16/18 08:37 Dose: 40 mg Dextrose (D50w Syringe 50 Ml*) 12.5 gm IV PUSH .FOR FS < 60 - SS PRN PRN Reason: FS < 60 Heparin Sodium (Porcine) (Heparin Vial(*)) 5,000 units SUBCUT Q8HR [facility] Last Admin: 03/17/18 05:46 Dose: 5,000 units Hydromorphone HCl (Dilaudid Inj*) 1 mg IV SLOW PU Q2H PRN PRN Reason: PAIN - SEVERE Last Admin: 03/16/18 12:54 Dose: 1 mg Lactated Ringer's (Lactated Ringers 1000 Ml Bag*) 1,000 mls @ 125 mls/hr IV PER RATE [facility] Last Admin: 03/16/18 01:32 Dose: 125 mls/hr Insulin Glargine (Lantus(*)) 8 units SUBCUT Q12H [facility] Last Admin: 03/16/18 22:47 Dose: 8 unit Insulin Human Lispro (Humalog*) 0 - 10 units SUBCUT AC [facility] PRN Reason: Protocol Last Admin: 03/16/18 17:28 Dose: 1 units Magnesium Hydroxide (Milk Of Magnesia Liq*) 30 ml PO Q6H PRN PRN Reason: PAIN Last Admin: 03/16/18 08:52 Dose: 30 ml Mometasone Furoate/Formoterol Fumar (Dulera 200/5 Mdi*) 1 puff INH BID [facility] PRN Reason: Protocol Last Admin: 03/16/18 20:25 Dose: 1 puff Montelukast Sodium (Singulair Tab*) 10 mg PO QAM [facility] Last Admin: 03/16/18 08:37 Dose: 10 mg Omeprazole (Prilosec Cap*) 40 mg PO BID [facility] Last Admin: 03/16/18 21:08 Dose: 40 mg Oxycodone/Acetaminophen (Percocet 5/325 Tab*) 1 tab PO Q4H PRN PRN Reason: PAIN - MILD TO MODERATE Oxycodone/Acetaminophen (Percocet 5/325 Tab*) 2 tab PO Q4H PRN PRN Reason: PAIN - MODERATE Last Admin: 03/16/18 22:53 Dose: 2 tab Tramadol HCl (Ultram*) 50 mg PO Q6HR PRN PRN Reason: PAIN Last Admin: 03/16/18 09:56 Dose: 50 mg - Review of Systems Constitutional Symptoms: No: Fatigue, Fever Pulmonary: Negative: Cough, Sputum, Hemoptysis, Respiratory Distress, Asthma - not exacerbated Cardiology: Negative: Chest Pain, Palpitations, Swelling of Ankles Gastroenterology: Positive: Change in Bowel Habits - no BM yet Negative: Abdominal Pain, Nausea, Vomiting, Anorexia Genital - Urinary: Positive: Other - nino to be removed today Endocrinology: Negative: Hyperglycemia, Hx Hypoglycemia Psychiatry: Positive: Anxiety, Depressed Mood Home Medications: Home Medications Medication Instructions Recorded Confirmed Type Citalopram TAB* [Celexa TAB*] 40 mg PO QAM 07/30/14 03/14/18 History Montelukast Sodium TAB* [Singulair 10 mg PO QAM 07/30/14 03/14/18 History 10 MG TAB*] busPIRone TAB* [Buspar TAB*] 10 mg PO BID 07/30/14 03/14/18 History Albuterol HFA INHALER* [Ventolin 2 puff INH Q4HR PRN 07/20/16 03/14/18 History HFA Inhaler*] Metformin ER (NF) 500 mg PO BID 07/20/16 03/14/18 History Albuterol/Ipratropium NEB.DARON* 1 neb INH Q6H PRN #30 neb.soln 07/21/16 03/14/18 Rx [Duoneb (Albuterol 2.5 MG/Ipratropium 0.5 MG)] Insulin GLARGINE(*) [Lantus(*)] 8 units INJ BID PRN 11/23/16 03/14/18 History Dulaglutide (NF) [Trulicity (NF)] 0.75 mg SUBCUT WEEKLY 03/14/18 03/14/18 History Fluticas/Salmet 115/21 HFA(NF) 1 puff INH BID 03/14/18 03/14/18 History [Advair HFA 115/21 (NF)] Omeprazole CAP* [Prilosec CAP* 20 40 mg PO BID 03/14/18 03/14/18 History MG] glipiZIDE TAB.XL* [Glucotrol XL*] 2.5 mg PO BID 03/14/18 03/14/18 History traMADol TAB* [Ultram*] 50 mg PO Q6HR PRN 03/14/18 03/14/18 History Allergies: Allergies Allergy/AdvReac Type Severity Reaction Status Date / Time latex Allergy Severe Rash Verified 02/28/18 17:19 morphine Allergy Severe Hives Verified 02/28/18 17:19 Sulfa (Sulfonamide Allergy Severe Hives Verified 02/28/18 17:19 Antibiotics) Adhesive Tape Allergy Intermediate Rash Verified 02/28/18 16:29 influenza virus vaccine, Allergy Rash And Verified 03/14/18 17:50 specific Itching Influenza Virus Vaccines Allergy Rash And Verified 03/14/18 17:50 Itching hydrocodone AdvReac Hallucinati Verified 02/28/18 17:21 ons ENVIRONMENTAL/SEASONAL Allergy SNEEZING, Uncoded 07/29/17 20:20 ALLERGY WATERY ITCHY EYES, RUNNY NOSE Objective - Vital Signs Vital Signs: Vital Signs 03/16/18 03/16/18 03/16/18 09:56 12:00 12:04 Temperature 99.0 F Pulse Rate 85 Respiratory 18 16 18 Rate Blood Pressure 181/60 (mmHg) O2 Sat by Pulse 94 Oximetry 03/16/18 03/16/18 03/16/18 12:54 13:40 14:00 Temperature Pulse Rate 91 Respiratory 18 18 Rate Blood Pressure 154/48 (mmHg) O2 Sat by Pulse Oximetry 03/16/18 03/16/18 03/16/18 15:36 16:00 16:16 Temperature 98.0 F Pulse Rate 90 Respiratory 16 7 Rate Blood Pressure 137/38 (mmHg) O2 Sat by Pulse 96 96 Oximetry 03/16/18 03/16/18 03/16/18 19:06 19:35 19:56 Temperature 98.1 F Pulse Rate 85 Respiratory 18 16 18 Rate Blood Pressure 126/47 (mmHg) O2 Sat by Pulse 95 Oximetry 03/16/18 03/16/18 03/16/18 20:24 22:53 23:50 Temperature 99.6 F Pulse Rate 88 89 Respiratory 16 16 14 Rate Blood Pressure 168/33 (mmHg) O2 Sat by Pulse 95 93 Oximetry 03/17/18 03/17/18 03/17/18 00:45 03:43 07:14 Temperature 99.4 F 99.0 F Pulse Rate 92 95 Respiratory 16 17 16 Rate Blood Pressure 148/48 147/48 (mmHg) O2 Sat by Pulse 94 93 Oximetry - Intake and Output Intake and Output: Intake & Output 03/14/18 03/15/18 03/16/18 03/17/18 11:59 11:59 11:59 11:59 Intake Total 1390 3852 3630 Output Total 1225 5775 3625 Balance 165 -1923 5 Intake: IV Fluids 990 3192 980 LR 990 3192 980 IVPB 110 LR 110 Oral 991 839 7185 Output: Urine 1225 Nino [id number] Other: # Bowel Movements 0 ADLs: Meal Record Start: 03/14/18 17: 24 Freq: Status: Active Protocol: Created 03/14/18 17:24 System (Rec: 03/14/18 17:24 System [id number]) Document 03/15/18 08:28 [id number] (Rec: 03/15/18 08:29 [id number] S[facility]-C02) Document 03/16/18 09:21 [id number] (Rec: 03/16/18 09:21 [id number] [facility]-C11) Document 03/16/18 17:41 [id number] (Rec: 03/16/18 17:42 [id number] S[facility]-C08) Intake and Output Start: 03/14/18 13: 28 Freq: Status: Active Protocol: Created 03/14/18 13:28 System (Rec: 03/14/18 13:28 System [id number]) Intake and Output Start: 03/14/18 17: 24 Freq: DAILY@0600,1400,2200 Status: Active Protocol: Created 03/14/18 17:24 System (Rec: 03/14/18 17:24 System [id number]-C08) Document 03/14/18 20:40 [id number] (Rec: 03/14/18 20:40 [id number] S[facility]-M15) Document 03/14/18 22:33 [id number] (Rec: 03/14/18 22:33 [id number] S[facility]-C02) Document 03/14/18 22:47 [id number] (Rec: 03/14/18 22:47 [id number] [facility]-C02) Document 03/15/18 03:30 [id number] (Rec: 03/15/18 03:31 [id number] [facility]-M17) Document 03/15/18 05:33 [id number] (Rec: 03/15/18 05:33 [id number] [facility]-M17) Document 03/15/18 07:45 [id number] (Rec: 03/15/18 07:45 [id number] [facility]-M14) Document 03/15/18 19:07 [id number] (Rec: 03/15/18 19:07 [id number] [facility]-C02) Document 03/15/18 23:51 [id number] (Rec: 03/15/18 23:51 [id number] S[facility]-M18) Document 03/16/18 05:53 [id number] (Rec: 03/16/18 05:53 [id number] [facility]-M07) Document 03/16/18 13:21 [id number] (Rec: 03/16/18 13:21 [id number] [facility]-C11) Document 03/16/18 17:59 [id number] (Rec: 03/16/18 17:59 [id number] [facility]-C05) Document 03/16/18 22:00 [id number] (Rec: 03/16/18 22:24 [id number] [facility] Document 03/17/18 00:20 [id number] (Rec: 03/17/18 00:20 [id number] [facility]-M17) Document 03/17/18 05:51 [id number] (Rec: 03/17/18 05:51 [id number] [facility] - Physical Exam General: No Cyanosis, No Anemia, No Jaundice, No Clubbing Skin: Normal: Rash Lungs and Chest: Yes: Chest Expansion Full, Chest Expansion Symetrica, Percussion Note Resonant, Vessicular Breath Sounds. No: Crackles, Wheezes Heart Rate and Rhythm: Regular JVP: Not Elevated Additional Cardiovascular: Yes: Normal Heart Sounds. No: Heart Murmur, Pedal Edema Abdominal Exam: Yes: Soft, Bowel Sounds Present. No: Distention, Abdominal Mass , Abdominal Tenderness Results - Results Lab Results: Laboratory Results - last 24 hr 03/16/18 03/16/18 03/16/18 11:56 11:56 11:56 WBC 9.7 RBC 3.64 L Hgb 10.4 L Hct 31 L MCV 84 MCH 29 MCHC 34 RDW 14 Plt Count 140 L MPV 8.4 Neut % (Auto) Not Reportable Lymph % (Auto) Not Reportable Kinney % (Auto) Not Reportable Eos % (Auto) Not Reportable Baso % (Auto) Not Reportable Absolute Neuts (auto) 6.2 Absolute Lymphs (auto) 2.3 Absolute Monos (auto) 1.1 H Absolute Eos (auto) 0 Absolute Basos (auto) 0.1 Absolute Nucleated RBC Not Reportable Neutrophils % 71 Lymphocytes % 17 L Monocytes % 11 H Eosinophils % 1 Basophils % 0 Nucleated RBC % Not Reportable Abs Neuts (Manual) 6.9 Abs Lymphs (Manual) 1.6 Abs Monocytes (Manual) 1.1 H Absolute Eos (Manual) 0.1 Abs Basophils (Manual) 0 Normal RBC Morphology Normal INR (Anticoag Therapy) 1.03 H APTT 27.4 BUN 8 Creatinine 0.65 Est GFR ( Amer) 114.0 Est GFR (Non-Af Amer) 88.6 POC Glucose (mg/dL) 03/16/18 03/16/18 03/16/18 12:01 17:25 21:13 WBC RBC Hgb Hct MCV MCH MCHC RDW Plt Count MPV Neut % (Auto) Lymph % (Auto) Kinney % (Auto) Eos % (Auto) Baso % (Auto) Absolute Neuts (auto) Absolute Lymphs (auto) Absolute Monos (auto) Absolute Eos (auto) Absolute Basos (auto) Absolute Nucleated RBC Neutrophils % Lymphocytes % Monocytes % Eosinophils % Basophils % Nucleated RBC % Abs Neuts (Manual) Abs Lymphs (Manual) Abs Monocytes (Manual) Absolute Eos (Manual) Abs Basophils (Manual) Normal RBC Morphology INR (Anticoag Therapy) APTT BUN Creatinine Est GFR ( Amer) Est GFR (Non-Af Amer) POC Glucose (mg/dL) 162 H 145 H 165 H 03/17/18 08:06 WBC RBC Hgb Hct MCV MCH MCHC RDW Plt Count MPV Neut % (Auto) Lymph % (Auto) Kinney % (Auto) Eos % (Auto) Baso % (Auto) Absolute Neuts (auto) Absolute Lymphs (auto) Absolute Monos (auto) Absolute Eos (auto) Absolute Basos (auto) Absolute Nucleated RBC Neutrophils % Lymphocytes % Monocytes % Eosinophils % Basophils % Nucleated RBC % Abs Neuts (Manual) Abs Lymphs (Manual) Abs Monocytes (Manual) Absolute Eos (Manual) Abs Basophils (Manual) Normal RBC Morphology INR (Anticoag Therapy) APTT BUN Creatinine Est GFR ( Amer) Est GFR (Non-Af Amer) POC Glucose (mg/dL) 138 H Assessment - Problem List Assessment: Patient Problems Fall (Acute) Fracture of distal end of right humerus (Acute) Fracture of surgical neck of left humerus (Acute) Hyperglycemia due to type 2 diabetes mellitus (Acute) Anxiety disorder (Chronic) Essential hypertension (Chronic) GERD (gastroesophageal reflux disease) (Chronic) History of breast cancer (Chronic) History of intracranial hemorrhage (Chronic) Migraine (Chronic) Obesity, Class II, BMI 35.0-39.9, with comorbidity (see actual BMI) (Chronic) Osteoarthritis of right knee (Chronic) Type 2 diabetes mellitus (Chronic) S/P total knee arthroplasty (Chronic 12/13/15) Plan: Fall (Acute)Fracture of distal end of right humerus (Acute)Fracture of surgical neck of left humerus (Acute) Per orthopedic team Type 2 diabetes mellitus (Chronic)Hyperglycemia due to type 2 diabetes mellitus (Acute) This is well controlled Anxiety disorder (Chronic) She is anxious today - prior to anxiolytics Essential hypertension (Chronic) stable GERD (gastroesophageal reflux disease) (Chronic) No symptoms History of breast cancer (Chronic) History of intracranial hemorrhage (Chronic) Migraine (Chronic) inactive Obesity, Class II, BMI 35.0-39.9, with comorbidity (see actual BMI) (Chronic) S/P total knee arthroplasty (Chronic 12/13/15) I discussed the above with the patient.
--- NOTE | 2018-03-17 09:39 | PN ---
Progress Note - Progress Note Date of Service: 03/17/18 SOAP: Subjective: 78 yo female, sustained R distal humerus and L proximal humerus fractures on 03/14, s/p ORIF with Dr. Cooper on 03/15/18 for R distal humerus fracture, L humerus non-op. Patient discouraged about situation, however mood slightly improved with knowledge that R cast will likely be removed in 2 weeks with increased mobility, independence. VSS, afebrile overnight. Objective: General- Fatigued appearing, mildly anxious however appropriate mood. NAD, AO MSK- L arm in splint, fingers warm, pink, NVI. Increased pain with movement. RUE in cast/surgical dressing in place, + F/E of fingers, thumb, NVI as examined by DR. Cooper at bedside. Vital Signs Temp 99.0 F 03/17/18 07:14 Pulse 95 03/17/18 07:14 Resp 16 03/17/18 09:54 BP 147/48 03/17/18 07:14 Pulse Ox 93 03/17/18 07:14 Intake & Output 03/16/18 03/17/18 03/17/18 18:59 06:59 18:59 Intake Total 3230 1000 Output Total 1800 2575 Balance 1430 -1575 Intake: IV Fluids 980 LR 980 IVPB 110 LR 110 Oral 2140 1000 Output: Waters 1800 2575 Assessment: Stable 78 yo female who is sustained R distal humerus and L proximal humerus fractures on 03/14/18. She underwent ORIF with Dr. Cooper on 03/15/18 for R distal humerus fracture. Plan: - NWB bilateral UE - Added percocet to pain medication per poorly controlled pain earlier today, patient has taken at home without problems. - PMRU consult placed, will discuss with telephonic case manager re: placement - DVT prophylaxis: heparin, SCD - Post- op ABX- Completed. - R UE cast will be removed in 2 weeks at which time patient will have more mobility, independence. - L UE to remain in sling, non-op treatment. Acetaminophen (Tylenol Tab*) 975 mg PO Q6H [id number] Last Admin: 03/17/18 07:34 Dose: Not Given Albuterol/Ipratropium (Duoneb (Albuterol 2.5 Mg/Ipratropium 0.5 Mg)) 1 neb INH Q6H PRN PRN Reason: SOB/WHEEZING Last Admin: 03/15/18 04:11 Dose: 1 neb Alprazolam (Xanax Tab*) 0.25 mg PO TID PRN PRN Reason: ANXIETY Buspirone HCl (Buspar Tab*) 10 mg PO BID [facility] Last Admin: 03/17/18 09:56 Dose: 10 mg Citalopram Hydrobromide (Celexa Tab*) 40 mg PO QAM [facility] Last Admin: 03/17/18 09:56 Dose: 40 mg Dextrose (D50w Syringe 50 Ml*) 12.5 gm IV PUSH .FOR FS < 60 - SS PRN PRN Reason: FS < 60 Heparin Sodium (Porcine) (Heparin Vial(*)) 5,000 units SUBCUT Q8HR [facility] Last Admin: 03/17/18 05:46 Dose: 5,000 units Hydromorphone HCl (Dilaudid Inj*) 1 mg IV SLOW PU Q2H PRN PRN Reason: PAIN - SEVERE Last Admin: 03/16/18 12:54 Dose: 1 mg Insulin Glargine (Lantus(*)) 8 units SUBCUT Q12H [facility] Last Admin: 03/16/18 22:47 Dose: 8 unit Insulin Human Lispro (Humalog*) 0 - 10 units SUBCUT AC [facility] PRN Reason: Protocol Last Admin: 03/17/18 09:58 Dose: 1 units Magnesium Hydroxide (Milk Of Magnesia Liq*) 30 ml PO Q6H PRN PRN Reason: PAIN Last Admin: 03/17/18 10:01 Dose: 30 ml Mometasone Furoate/Formoterol Fumar (Dulera 200/5 Mdi*) 1 puff INH BID [facility] PRN Reason: Protocol Last Admin: 03/17/18 09:59 Dose: 1 puff Montelukast Sodium (Singulair Tab*) 10 mg PO QAM [facility] Last Admin: 03/17/18 09:57 Dose: 10 mg Omeprazole (Prilosec Cap*) 40 mg PO BID [facility] Last Admin: 03/17/18 09:55 Dose: 40 mg Oxycodone/Acetaminophen (Percocet 5/325 Tab*) 1 tab PO Q4H PRN PRN Reason: PAIN - MILD TO MODERATE Oxycodone/Acetaminophen (Percocet 5/325 Tab*) 2 tab PO Q4H PRN PRN Reason: PAIN - MODERATE Last Admin: 03/17/18 09:54 Dose: 2 tab Tramadol HCl (Ultram*) 50 mg PO Q6HR PRN PRN Reason: PAIN Last Admin: 03/16/18 09:56 Dose: 50 mg
[2018-03-17] MEDS: oxyCODONE/Acetamin 5/325 MG* TAB PO PRN ×2 (09:54→18:25)
[2018-03-17] MEDS: Omeprazole CAP* 20 MG PO SCH ×2 (09:55→21:04)
[2018-03-17] MEDS: Citalopram TAB* 40 MG PO SCH (09:56)
[2018-03-17] MEDS: busPIRone TAB* 10 MG PO SCH ×2 (09:56→21:04)
[2018-03-17] MEDS: Montelukast Sodium TAB* 10 MG PO SCH (09:57)
[2018-03-17] MEDS: Insulin LISPRO* 1 UNITS UNIT SUBCUT SCH ×3 (09:58→17:08)
[2018-03-17] MEDS: Mometasone/Formoter 200/5 MDI INH SCH ×2 (09:59→20:14)
[2018-03-17] MEDS: Magnesium Hydroxide LIQ* 30 ML UDC PO PRN ×2 (10:01→21:12)
[2018-03-17] MEDS: Insulin GLARGINE(*) 1 UNITS UNIT SUBCUT SCH ×2 (10:34→23:10)
[2018-03-17] MEDS: ALPRAZolam TAB* 0.25 MG PO PRN (10:34)
[2018-03-17] MEDS: traMADol TAB* 50 MG PO PRN (13:26)
[2018-03-18] MEDS: oxyCODONE/Acetamin 5/325 MG* TAB PO PRN ×2 (05:12→14:33)
[2018-03-18] MEDS: ALPRAZolam TAB* 0.25 MG PO PRN ×3 (05:13→20:49)
[2018-03-18] MEDS: Heparin VIAL(*) 5000 UNITS/ML VIAL (FIVE THOUSAND) SUBCUT SCH ×3 (06:08→20:50)
[2018-03-18] MEDS: Acetaminophen TAB* 325 MG PO SCH ×5 (06:10→23:52)
--- NOTE | 2018-03-18 07:42 | PN ---
Subjective - Subjective Reason for Note: Progress Note History: She is feeling better each day and slept well last night. Her pain control is improved. I reviewed the orthopedic plan. Active Problems: Active Problems Fall (Acute) Fracture of distal end of right humerus (Acute) S42.401A Fracture of surgical neck of left humerus (Acute) S42.212A Hyperglycemia due to type 2 diabetes mellitus (Acute) E11.65 Anxiety disorder (Chronic) F41.9 Essential hypertension (Chronic) I10 GERD (gastroesophageal reflux disease) (Chronic) K21.9 History of breast cancer (Chronic) Z85.3 History of intracranial hemorrhage (Chronic) Z86.79 Migraine (Chronic) G43.909 Obesity, Class II, BMI 35.0-39.9, with comorbidity (see actual BMI) (Chronic) E66.01 Osteoarthritis of right knee (Chronic) M17.9 Type 2 diabetes mellitus (Chronic) Current Medications: Current Medications Acetaminophen (Tylenol Tab*) 975 mg PO Q6H [facility] Last Admin: 03/18/18 06:10 Dose: Not Given Albuterol/Ipratropium (Duoneb (Albuterol 2.5 Mg/Ipratropium 0.5 Mg)) 1 neb INH Q6H PRN PRN Reason: SOB/WHEEZING Last Admin: 03/15/18 04:11 Dose: 1 neb Alprazolam (Xanax Tab*) 0.25 mg PO TID PRN PRN Reason: ANXIETY Last Admin: 03/18/18 05:13 Dose: 0.25 mg Buspirone HCl (Buspar Tab*) 10 mg PO BID [facility] Last Admin: 03/17/18 21:04 Dose: 10 mg Citalopram Hydrobromide (Celexa Tab*) 40 mg PO QAM [facility] Last Admin: 03/17/18 09:56 Dose: 40 mg Dextrose (D50w Syringe 50 Ml*) 12.5 gm IV PUSH .FOR FS < 60 - SS PRN PRN Reason: FS < 60 Heparin Sodium (Porcine) (Heparin Vial(*)) 5,000 units SUBCUT Q8HR [facility] Last Admin: 03/18/18 06:08 Dose: 5,000 units Hydromorphone HCl (Dilaudid Inj*) 1 mg IV SLOW PU Q2H PRN PRN Reason: PAIN - SEVERE Last Admin: 03/16/18 12:54 Dose: 1 mg Insulin Glargine (Lantus(*)) 8 units SUBCUT Q12H [facility] Last Admin: 03/17/18 23:10 Dose: 8 unit Insulin Human Lispro (Humalog*) 0 - 10 units SUBCUT AC [facility] PRN Reason: Protocol Last Admin: 03/17/18 17:08 Dose: Not Given Magnesium Hydroxide (Milk Of Magnesia Liq*) 30 ml PO Q6H PRN PRN Reason: PAIN Last Admin: 03/17/18 21:12 Dose: 30 ml Mometasone Furoate/Formoterol Fumar (Dulera 200/5 Mdi*) 1 puff INH BID [facility] PRN Reason: Protocol Last Admin: 03/17/18 20:14 Dose: 1 puff Montelukast Sodium ([facility]ulair Tab*) [facility] Admin: 03/17/18 09:57 Dose: 10 mg Omeprazole (Prilosec Cap*) 40 mg PO BID [facility] Last Admin: 03/17/18 21:04 Dose: 40 mg Oxycodone/Acetaminophen (Percocet 5/325 Tab*) 1 tab PO Q4H PRN PRN Reason: PAIN - MILD TO MODERATE Oxycodone/Acetaminophen (Percocet 5/325 Tab*) 2 tab PO Q4H PRN PRN Reason: PAIN - MODERATE Last Admin: 03/18/18 05:12 Dose: 2 tab Tramadol HCl (Ultram*) 50 mg PO Q6HR PRN PRN Reason: PAIN Last Admin: 03/17/18 13:26 Dose: 50 mg - Review of Systems Pulmonary: Negative: Cough, Sputum, Wheezing, Shortness of Breath Cardiology: Negative: Chest Pain, Swelling of Ankles Gastroenterology: Negative: Abdominal Pain, Nausea, Vomiting, Change in Bowel Habits Home Medications: Home Medications Medication Instructions Recorded Confirmed Type Citalopram TAB* [Celexa TAB*] 40 mg PO QAM 07/30/14 03/14/18 History Montelukast Sodium TAB* [Singulair 10 mg PO QAM 07/30/14 03/14/18 History 10 MG TAB*] busPIRone TAB* [Buspar TAB*] 10 mg PO BID 07/30/14 03/14/18 History Albuterol HFA INHALER* [Ventolin 2 puff INH Q4HR PRN 07/20/16 03/14/18 History HFA Inhaler*] Metformin ER (NF) 500 mg PO BID 07/20/16 03/14/18 History Albuterol/Ipratropium NEB.DARON* 1 neb INH Q6H PRN #30 neb.soln 07/21/16 03/14/18 Rx [Duoneb (Albuterol 2.5 MG/Ipratropium 0.5 MG)] Insulin GLARGINE(*) [Lantus(*)] 8 units INJ BID PRN 11/23/16 03/14/18 History Dulaglutide (NF) [Trulicity (NF)] 0.75 mg SUBCUT WEEKLY 03/14/18 03/14/18 History Fluticas/Salmet 115/21 HFA(NF) 1 puff INH BID 03/14/18 03/14/18 History [Advair HFA 115/21 (NF)] Omeprazole CAP* [Prilosec CAP* 20 40 mg PO BID 03/14/18 03/14/18 History MG] glipiZIDE TAB.XL* [Glucotrol XL*] 2.5 mg PO BID 03/14/18 03/14/18 History traMADol TAB* [Ultram*] 50 mg PO Q6HR PRN 03/14/18 03/14/18 History Allergies: Allergies Allergy/AdvReac Type Severity Reaction Status Date / Time latex Allergy Severe Rash Verified 02/28/18 17:19 morphine Allergy Severe Hives Verified 02/28/18 17:19 Sulfa (Sulfonamide Allergy Severe Hives Verified 02/28/18 17:19 Antibiotics) Adhesive Tape Allergy Intermediate Rash Verified 02/28/18 16:29 influenza virus vaccine, Allergy Rash And Verified 03/14/18 17:50 specific Itching Influenza Virus Vaccines Allergy Rash And Verified 03/14/18 17:50 Itching hydrocodone AdvReac Hallucinati Verified 02/28/18 17:21 ons ENVIRONMENTAL/SEASONAL Allergy SNEEZING, Uncoded 07/29/17 20:20 ALLERGY WATERY ITCHY EYES, RUNNY NOSE Objective - Vital Signs Vital Signs: Vital Signs 03/17/18 03/17/18 03/17/18 08:00 09:54 10:34 Temperature Pulse Rate Respiratory 16 16 16 Rate Blood Pressure (mmHg) O2 Sat by Pulse 93 Oximetry 03/17/18 03/17/18 03/17/18 11:56 13:10 13:26 Temperature 98.8 F Pulse Rate 97 Respiratory 16 16 16 Rate Blood Pressure 155/47 (mmHg) O2 Sat by Pulse 96 Oximetry 03/17/18 03/17/18 03/17/18 16:00 16:09 16:49 Temperature 98.5 F Pulse Rate 94 Respiratory 20 16 Rate Blood Pressure (mmHg) O2 Sat by Pulse 97 97 Oximetry 03/17/18 03/17/18 03/17/18 17:20 18:25 20:00 Temperature Pulse Rate 91 Respiratory 16 17 Rate Blood Pressure 159/48 (mmHg) O2 Sat by Pulse Oximetry 03/17/18 03/17/18 03/17/18 20:15 20:54 21:15 Temperature 98.4 F Pulse Rate 93 Respiratory 16 17 Rate Blood Pressure 150/51 (mmHg) O2 Sat by Pulse 94 97 Oximetry 03/17/18 03/18/18 03/18/18 23:33 01:18 03:37 Temperature 98.3 F 98.6 F Pulse Rate 89 96 Respiratory 16 16 Rate Blood Pressure 142/43 145/45 (mmHg) O2 Sat by Pulse 95 95 96 Oximetry 03/18/18 03/18/18 05:12 05:13 Temperature Pulse Rate Respiratory 20 20 Rate Blood Pressure (mmHg) O2 Sat by Pulse Oximetry - Intake and Output Intake and Output: Intake & Output 03/15/18 03/16/18 03/17/18 03/18/18 11:59 11:59 11:59 11:59 Intake Total 1390 3852 3830 1180 Output Total 1225 5775 4425 950 Balance 775 -5310 -851 799 Intake: IV Fluids 990 3192 980 LR 990 3192 980 IVPB 110 LR 110 Oral 083 032 5444 1180 Output: Urine 1225 950 Waters 5775 4425 Other: Estimated Void Large # Bowel Movements 0 # Voids 1 ADLs: Meal Record Start: 03/14/18 17: 24 Freq: Status: Active Protocol: Created 03/14/18 17:24 System (Rec: 03/14/18 17:24 System [id number]) Document 03/15/18 08:28 [id number] (Rec: 03/15/18 08:29 [id number] SSU-C02) Document 03/16/18 09:21 [id number] (Rec: 03/16/18 09:21 [id number] SSU-C11) Document 03/16/18 17:41 [id number] (Rec: 03/16/18 17:42 [id number] SSU-C08) Document 03/17/18 11:02 [id number] (Rec: 03/17/18 11:03 [id number] SSU-C11) Document 03/17/18 13:35 [id number] (Rec: 03/17/18 13:36 [id number] SSU-C01) Document 03/17/18 18:12 [id number] (Rec: 03/17/18 18:12 [id number] SSU-M17) Intake and Output Start: 03/14/18 13: 28 Freq: Status: Active Protocol: Created 03/14/18 13:28 System (Rec: 03/14/18 13:28 System [id number]) Intake and Output Start: 03/14/18 17: 24 Freq: DAILY@0600,1400,2200 Status: Active Protocol: Created 03/14/18 17:24 System (Rec: 03/14/18 17:24 System [id number]-C08) Document 03/14/18 20:40 [id number] (Rec: 03/14/18 20:40 [id number] SSU-M15) Document 03/14/18 22:33 [id number] (Rec: 03/14/18 22:33 [id number] SSU-C02) Document 03/14/18 22:47 [id number] (Rec: 03/14/18 22:47 [id number] SSU-C02) Document 03/15/18 03:30 [id number] (Rec: 03/15/18 03:31 [id number] SSU-M17) Document 03/15/18 05:33 [id number] (Rec: 03/15/18 05:33 [id number] SSU-M17) Document 03/15/18 07:45 [id number] (Rec: 03/15/18 07:45 [id number] SSU-M14) Document 03/15/18 19:07 [id number] (Rec: 03/15/18 19:07 [id number] SSU-C02) Document 03/15/18 23:51 [id number] (Rec: 03/15/18 23:51 [id number] SSU-M18) Document 03/16/18 05:53 [id number] (Rec: 03/16/18 05:53 [id number] SSU-M07) Document 03/16/18 13:21 [id number] (Rec: 03/16/18 13:21 [id number] SSU-C11) Document 03/16/18 17:59 [id number] (Rec: 03/16/18 17:59 [id number] SSU-C05) Document 03/16/18 22:00 [id number] (Rec: 03/16/18 22:24 [id number] SSU-C08) Document 03/17/18 00:20 [id number] (Rec: 03/17/18 00:20 [id number] SSU-M17) Document 03/17/18 05:51 [id number] (Rec: 03/17/18 05:51 [id number] SSU-M17) Document 03/17/18 13:36 [id number] (Rec: 03/17/18 13:36 [id number] SSU-C01) Document 03/17/18 22:00 [id number] (Rec: 03/17/18 22:14 [id number] SSU-M13) Document 03/18/18 05:05 [id number] (Rec: 03/18/18 05:06 [id number] SSU-M17) - Physical Exam General: No Cyanosis, No Anemia, No Jaundice, No Clubbing Lungs and Chest: Yes: Chest Expansion Full, Chest Expansion Symetrica, Percussion Note Resonant, Vessicular Breath Sounds. No: Crackles, Wheezes Heart Rate and Rhythm: Regular JVP: Not Elevated Additional Cardiovascular: Yes: Normal Heart Sounds. No: Heart Murmur, Pedal Edema Abdominal Exam: Yes: Soft, Bowel Sounds Present. No: Distention, Abdominal Tenderness Results - Results Lab Results: Laboratory Results - last 24 hr 03/16/18 03/17/18 03/17/18 11:56 08:06 11:53 Hem Pathologist Commnt POC Glucose (mg/dL) 138 H 183 H 03/17/18 03/17/18 16:47 21:09 Hem Pathologist Commnt POC Glucose (mg/dL) 114 H 249 H Assessment - Problem List Assessment: Patient Problems Fall (Acute) Fracture of distal end of right humerus (Acute) Fracture of surgical neck of left humerus (Acute) Hyperglycemia due to type 2 diabetes mellitus (Acute) Anxiety disorder (Chronic) Essential hypertension (Chronic) GERD (gastroesophageal reflux disease) (Chronic) History of breast cancer (Chronic) History of intracranial hemorrhage (Chronic) Migraine (Chronic) Obesity, Class II, BMI 35.0-39.9, with comorbidity (see actual BMI) (Chronic) Osteoarthritis of right knee (Chronic) Type 2 diabetes mellitus (Chronic) S/P total knee arthroplasty (Chronic 12/13/15) Plan: I reviewed the orthopedic plan. She is to have a non-operative management of her left surgical neck fracture of the humerus. The cast will be on her right arm for 2 weeks. There is discussion of a steroid injection into her painful hip. T2D: I will restart her usual home regimen and reduce her blood glucose tests. If she has a steroid injection into her hip, I will increase her lantus insulin dose. Chest pain: She has had no problems with this during this admission - no need for any testing at present. I discussed discharge plans with her - either PMRU or subacute rehabilitation at a SNF for 2 weeks.
--- NOTE | 2018-03-18 08:26 | PN ---
Progress Note - Progress Note Date of Service: 03/18/18 SOAP: Subjective: 78 yo female, sustained R distal humerus and L proximal humerus fractures on 03/14, s/p ORIF with Dr. Cooper on 03/15/18 for R distal humerus fracture, L humerus non-op. Pt states that she is feeling better and better. Pain is well controlled. States she slept very well last night. Denies any SOB, chest pain. VSS, afebrile overnight. Objective: General- awake, alert and oriented, appropriate mood. NAD MSK- L arm in sling, fingers warm, pink, NVI, less than 2second cap refill in all digits. able to move all digits and wrist. RUE in surgical dressing in place, less than 2 seconds of cap refill in all digits. NVI. Able to move all digits. Vital Signs Temp 98.6 F 03/18/18 03:37 Pulse 96 03/18/18 03:37 Resp 16 03/18/18 07:51 BP 145/45 03/18/18 03:37 Pulse Ox 96 03/18/18 03:37 Intake & Output 03/17/18 03/18/18 03/18/18 18:59 06:59 18:59 Intake Total 900 480 Output Total 1150 600 Balance -250 -120 Intake: Oral 900 480 Output: Urine 350 600 Waters 800 Other: Estimated Void Large # Voids 1 Assessment: Stable 78 yo female who is sustained R distal humerus and L proximal humerus fractures on 03/14/18. She underwent ORIF with Dr. Cooper on 03/15/18 for R distal humerus fracture. Plan: - NWB bilateral UE - Percocet for pain - Awaiting PMRU consult - DVT prophylaxis: heparin, SCD - R UE cast will be removed in 2 weeks at which time patient will have more mobility, independence. - L UE to remain in sling, non-op treatment.
[2018-03-18] MEDS: Magnesium Hydroxide LIQ* 30 ML UDC PO PRN (08:48)
[2018-03-18] MEDS: Montelukast Sodium TAB* 10 MG PO SCH (08:49)
[2018-03-18] MEDS: glipiZIDE TAB* 5 MG PO SCH ×2 (08:49→17:48)
[2018-03-18] MEDS: Omeprazole CAP* 20 MG PO SCH ×2 (08:49→20:49)
[2018-03-18] MEDS: busPIRone TAB* 10 MG PO SCH ×2 (08:50→20:48)
[2018-03-18] MEDS: Citalopram TAB* 40 MG PO SCH (08:52)
[2018-03-18] MEDS: Mometasone/Formoter 200/5 MDI INH SCH ×2 (08:59→19:50)
[2018-03-18] MEDS: Insulin LISPRO* 1 UNITS UNIT SUBCUT SCH (09:18)
[2018-03-18] MEDS: traMADol TAB* 50 MG PO PRN ×3 (10:36→23:52)
[2018-03-18] MEDS: Insulin GLARGINE(*) 1 UNITS UNIT SUBCUT SCH ×2 (10:36→22:05)
[2018-03-19] MEDS: Acetaminophen TAB* 325 MG PO SCH ×4 (05:51→23:37)
[2018-03-19] MEDS: traMADol TAB* 50 MG PO PRN ×4 (05:51→23:37)
[2018-03-19] MEDS: Heparin VIAL(*) 5000 UNITS/ML VIAL (FIVE THOUSAND) SUBCUT SCH ×3 (05:54→21:44)
[2018-03-19 06:06] LABS: ABS Basophils 0 10^3/ul (0-0.2); ABS Eosinophils 0.2 10^3/ul (0-0.6); ABS Lymphocytes 1.9 10^3/ul (1.0-4.8); ABS Monocytes 0.7 10^3/ul (0-0.8); ABS Neutrophils 4.5 10^3/ul (1.5-7.7); ABS Nucleated RBC 0 10^3/ul; Eosinophil % 3.2 % (0-6); Hematocrit 31 % (35-47); Hemoglobin 10.3 g/dl (12.0-16.0); Lymphocyte % 25.4 % (25-47); Mean Corpuscular HGB Conc 33 g/dl (31-36); Mean Corpuscular Hemoglobin 29 pg (27-31); Mean Corpuscular Volume 87 fL (80-97); Mean Platelet Volume 7.8 um3 (7.4-10.4); Nucleated Red Blood Cells % 0.1; Platelet Count 238 10^3/ul (150-450); Red Blood Count 3.57 10^6/ul (4.00-5.40); Red Cell Distribution Width 15 % (10.5-15); White Blood Count 7.3 10^3/ul (3.5-10.8)
--- NOTE | 2018-03-19 08:43 | PN ---
Progress Note - Progress Note Date of Service: 03/19/18 Note: Humerus fractures - she requires sub acute rehabilitation per orthopedic team T2D: She is back to her usual regimen and is doing well with this. HTN: controlled Asthma: not a problem at present Poor balance/mobility: I discussed with the patient the options for SNFs in the area. She will be moving to one today. Medically she is stable.
[2018-03-19] MEDS: Montelukast Sodium TAB* 10 MG PO SCH (08:51)
[2018-03-19] MEDS: Omeprazole CAP* 20 MG PO SCH ×2 (08:51→20:43)
[2018-03-19] MEDS: glipiZIDE TAB* 5 MG PO SCH ×2 (08:51→17:41)
[2018-03-19] MEDS: busPIRone TAB* 10 MG PO SCH ×2 (08:51→20:43)
[2018-03-19] MEDS: Citalopram TAB* 40 MG PO SCH (08:51)
--- NOTE | 2018-03-19 10:30 | PN ---
Progress Note - Progress Note Date of Service: 03/19/18 SOAP: Subjective: 78 yo female, sustained R distal humerus and L proximal humerus fractures on 03/14, s/p ORIF with Dr. Cooper on 03/15/18 for R distal humerus fracture, L humerus non-op. Pt states that she is feeling better each day but is becoming more frustrated with having both arms out of commission. Pain is well controlled. States she slept very well last night. Denies any SOB, chest pain. VSS, afebrile overnight. Objective: General- awake, alert and oriented, appropriate mood. NAD MSK- L arm in sling, fingers warm, pink, NVI, less than 2second cap refill in all digits. able to move all digits and wrist. RUE in surgical dressing in place, less than 2 seconds of cap refill in all digits. NVI. Able to move all digits. Vital Signs Temp 98.2 F 03/19/18 07:25 Pulse 79 03/19/18 07:25 Resp 18 03/19/18 09:18 BP 148/53 03/19/18 07:25 Pulse Ox 92 03/19/18 08:00 Intake & Output 03/18/18 03/19/18 03/19/18 18:59 06:59 18:59 Intake Total 1440 1470 480 Output Total 2200 1200 0 Balance -760 270 480 Intake: Oral 1440 1470 480 Output: Urine 2200 1200 0 Other: Estimated Void Small Medium Date of Last Bowel 03/18/18 Movement # Bowel Movements 1 1 Estimated Stool Amount Medium Medium # Voids 1 1 Assessment: Stable 78 yo female who is sustained R distal humerus and L proximal humerus fractures on 03/14/18. She underwent ORIF with Dr. Cooper on 03/15/18 for R distal humerus fracture. Plan: - NWB bilateral UE - Percocet for pain - PMRU consult denied, will now look for placement at rehab center. - DVT prophylaxis: heparin, SCD - R UE cast will be removed in 2 weeks at which time patient will have more mobility, independence. - L UE to remain in sling, non-op treatment.
[2018-03-19] MEDS: Insulin GLARGINE(*) 1 UNITS UNIT SUBCUT SCH ×2 (11:03→22:57)
[2018-03-19] MEDS: Mometasone/Formoter 200/5 MDI INH SCH ×2 (11:03→19:34)
[2018-03-19] MEDS: ALPRAZolam TAB* 0.25 MG PO PRN (14:54)
[2018-03-20] MEDS: Heparin VIAL(*) 5000 UNITS/ML VIAL (FIVE THOUSAND) SUBCUT SCH ×2 (05:36→13:49)
[2018-03-20] MEDS: Acetaminophen TAB* 325 MG PO SCH ×2 (05:36→12:27)
[2018-03-20] MEDS: Montelukast Sodium TAB* 10 MG PO SCH (07:41)
[2018-03-20] MEDS: busPIRone TAB* 10 MG PO SCH (07:41)
[2018-03-20] MEDS: Omeprazole CAP* 20 MG PO SCH (07:41)
[2018-03-20] MEDS: traMADol TAB* 50 MG PO PRN ×2 (07:41→13:49)
[2018-03-20] MEDS: Citalopram TAB* 40 MG PO SCH (07:41)
[2018-03-20] MEDS: glipiZIDE TAB* 5 MG PO SCH (07:41)
[2018-03-20] MEDS: Mometasone/Formoter 200/5 MDI INH SCH (07:42)
--- NOTE | 2018-03-20 08:59 | PN ---
Progress Note - Progress Note Date of Service: 03/20/18 SOAP: Subjective: [Pt reports feeling much better today. Pain is well controlled with po meds. Anxious to get to rehab facility. Denies CP, SOB, Calf pain.] Objective: [A and O x 3, NAD. Sitting up in bed eating with assistance R UE in splint - C/D/I, Minimal swelling in fingers, able to wiggle, sensation intact, cap refill brisk L UE in sling. NV function intact. Vital Signs: Temp Pulse Resp BP Pulse Ox 97.5 F 79 16 124/59 99 03/20/18 07:11 03/20/18 07:11 03/20/18 07:41 03/20/18 07:11 03/20/18 07:11 Laboratory Results - last 24 hr 03/19/18 03/20/18 08:55 07:40 POC Glucose (mg/dL) 128 H 115 H ] Assessment: [78 yo female s/p R distal humerus ORIF on 03/15/18 - Dr. Cooper L proximal humerus fracture 03/14/18] Plan: [NWB B UE Percocet for pain DVT prophylaxis - heparin, SCDs Con't. PT/OT Awaiting placement in SNF]
[2018-03-20] MEDS: Insulin GLARGINE(*) 1 UNITS UNIT SUBCUT SCH (11:05)
[2018-03-20 11:47] VITALS: BP 147/59
[2018-03-20] MEDS: ALPRAZolam TAB* 0.25 MG PO PRN (12:27)
[2018-03-20] MEDS ORDERED: Acetaminophen TAB* 325 MG ONE (12:29)
--- NOTE | 2018-03-20 16:16 | DS ---
DATE OF ADMISSION: 03/14/2018. DATE OF DISCHARGE: 03/20/2018. ADMITTING PHYSICIAN: Dr. Wil Cooper. ATTENDING PHYSICIAN: Dr. Wil Cooper * (dictated by LOU Slater). ADMITTING DIAGNOSES: Right distal humerus fracture, left proximal humerus fracture, diabetes, hypertension, COPD, asthma, GERD, depression, and anxiety. DISCHARGE DIAGNOSES: Status post right distal humerus ORIF, nonoperative treatment of left proximal humerus fracture, diabetes, hypertension, COPD, asthma, GERD, depression, and anxiety. CONSULTANTS: Physical Therapy, Occupational Therapy, Medicine. BRIEF HISTORY: Ms. Srinivasan is a 78-year-old female who sustained a fall on , suffering fractures of her right distal humerus and her left proximal humerus. Dr. Cooper was consulted and he performed an open reduction internal fixation of the right distal humerus fracture on 03/15/2018. It was decided to treat the left proximal humerus fracture nonoperatively. HOSPITAL COURSE: Ms. Srinivasan was admitted to [facility] on 2017 after suffering a fall where she sustained fractures to the right distal humerus and the left proximal humerus. She underwent an open reduction internal fixation of the right distal humerus on 03/15/[address] Cooper. Postoperatively, she recovered on the Short Stay Surgical Unit. Her Waters catheter was removed on postoperative day one and she was able to urinate on her own. She was able to get out of bed with assistance and remained nonweightbearing bilateral upper extremities throughout her hospital stay. She needed assistance with all activities, but progressed well. She advanced to a regular diet. Her pain was well controlled with Percocet and Tramadol. She was started on her home medications. Her vital signs and labs remained stable. She advanced appropriately with physical therapy and occupational therapy. DVT prophylaxis was Heparin. By postoperative day number five, she was orthopedically and medically stable to be discharged to a correction facility, [facility]. PHYSICAL EXAMINATION: General: On examination, the patient is noted to be calm and cooperative, in no acute distress. She is alert and oriented times three. Vital Signs on the day of discharge: Temperature 97.6 Fahrenheit, pulse rate 84, respirations 16, O2 sat 97 percent on room air, blood pressure 147/59. On exam of the bilateral upper extremities: Her right upper extremity is maintained in the postoperative splint, secured with an Fidel wrap. It is clean and dry. There is minimal swelling in her fingers. She has good motion in her fingers. Sensation is intact. Capillary refill is brisk. Her left upper extremity is maintained in a sling. She has tenderness to palpation at the proximal humerus. She has relatively pain free motion at her elbow, wrist, and hand. There is no swelling distally. Neurovascular function is intact to the left upper extremity. LABORATORY DATA: On the day of discharge, hemoglobin 10.3, hematocrit 31. RADIOGRAPHS: Postoperative radiographs of the right elbow show fracture fragments to be in excellent anatomic position and hardware in place. X-rays of the left shoulder show a fracture at the proximal humerus. DISCHARGE MEDICATIONS: 1. Meloxicam. 2. Glipizide. 3. Atorvastatin. 4. Buspirone. 5. Citalopram. 6. Omeprazole. 7. Montelukast. 8. Ventolin. 9. Fish oil. 10. Sumatriptan. 11. Calcium. 12. Metformin. 13. [place] 3. 14. Vitamin B12. 15. Percocet 5/325 one to two tabs p.o. q.4 to 6 hours prn pain. 16. Colace 100 mg t.i.d. prn constipation. CONDITION ON DISCHARGE: Stable. DISCHARGE INSTRUCTIONS: Ms. Srinivasan is a 78-year-old female, postoperative day number five, status post right distal humerus ORIF and left proximal humerus fracture being treated nonoperatively. She is orthopedically and medically stable to be discharged to a correction facility, [facility]. She has stable vital signs and labs. She will remain nonweightbearing bilateral upper extremities with physical therapy and occupational therapy. She will use Percocet for pain control and Colace for constipation. She should follow-up with Dr. Cooper in the office on or about 03/28/2018 for recheck and staple removal. The splint on her right upper extremity should remain in place until her follow-up appointment with Dr. Cooper and the sling on her left upper extremity should remain in place when she is not involved in physical therapy. LOU SLATER [id number]/[facility] #: [id number] [facility]ENTER[facility]
== END 2018-03-20 14:06 | DRG 493 ==
LOC: ED 13:11 → SSU 17:07
PROVIDERS: ADMIT Internal Medicine; ATTEND Orthopaedic Surgery Hand Surgery
PROC: 0PSDXZZ Reposition Left Humeral Head, External Approach (ICD-10-PCS; 2018-03-15)
PROC: 0PSF04Z Reposition Right Humeral Shaft with Internal Fixation Device, Open Approach (ICD-10-PCS; principal; 2018-03-15 08:00)
DX: S42.491A Other displaced fracture of lower end of right humerus, initial encounter for closed fracture (principal); S42.212A Unspecified displaced fracture of surgical neck of left humerus, initial encounter for closed fracture; Z96.651 Presence of right artificial knee joint; E66.01 Morbid (severe) obesity due to excess calories; I10 Essential (primary) hypertension; K21.9 Gastro-esophageal reflux disease without esophagitis; M19.90 Unspecified osteoarthritis, unspecified site; Z96.642 Presence of left artificial hip joint; G43.909 Migraine, unspecified, not intractable, without status migrainosus; F41.9 Anxiety disorder, unspecified; F32.9 Major depressive disorder, single episode, unspecified; Z96.1 Presence of intraocular lens; J44.9 Chronic obstructive pulmonary disease, unspecified; E78.5 Hyperlipidemia, unspecified; W01.0XXA Fall on same level from slipping, tripping and stumbling without subsequent striking against object, initial encounter; K59.00 Constipation, unspecified; E11.65 Type 2 diabetes mellitus with hyperglycemia; Z85.3 Personal history of malignant neoplasm of breast; Z88.1 Allergy status to other antibiotic agents; Z91.040 Latex allergy status; Z88.5 Allergy status to narcotic agent; Z88.2 Allergy status to sulfonamides; Z88.8 Allergy status to other drugs, medicaments and biological substances; Z91.048 Other nonmedicinal substance allergy status; Z87.11 Personal history of peptic ulcer disease; Z98.42 Cataract extraction status, left eye; Z98.41 Cataract extraction status, right eye; Z86.73 Personal history of transient ischemic attack (TIA), and cerebral infarction without residual deficits; Z92.21 Personal history of antineoplastic chemotherapy; Z90.13 Acquired absence of bilateral breasts and nipples; Z98.51 Tubal ligation status; Z90.710 Acquired absence of both cervix and uterus; Z83.3 Family history of diabetes mellitus; Z82.3 Family history of stroke; Z87.891 Personal history of nicotine dependence; Y92.092 Bedroom in other non-institutional residence as the place of occurrence of the external cause; Z82.49 Family history of ischemic heart disease and other diseases of the circulatory system; Z80.3 Family history of malignant neoplasm of breast; Z79.1 Long term (current) use of non-steroidal anti-inflammatories (NSAID); Z79.84 Long term (current) use of oral hypoglycemic drugs; Z68.39 Body mass index [BMI] 39.0-39.9, adult; Z68.37 Body mass index [BMI] 37.0-37.9, adult
CPT/HCPCS: 36415; 70450; 72125; 76001; 80048; 80053; 81003; 82565; 83605; 84520; 85025; 85060; 85610; 85730; 93005; 94640; 99284; A9270-GY; C1713; C1776; G8978-GP-CL; G8979-GP-CI; G8987-GO-CM; G8988-GO-CL; J0690; J1170; J1644; J2250; J3010; J3370

== ENCOUNTER 2019-02-10 07:09 | Inpatient (IN) | payer MEDICARE ==
--- NOTE | 2019-01-30 18:40 | HP ---
HISTORY AND PHYSICAL: DATE OF ADMISSION/SURGERY: 02/10/19 DATE OF OFFICE VISIT: 01/30/19 PRIMARY CARE PHYSICIAN: Dr. Casey Mary. SURGEON: Anastasia Patel MD* (dictated by LOU Talamantes). PROCEDURE: Right total hip arthroplasty. CHIEF COMPLAINT: Right hip pain. HISTORY OF PRESENT ILLNESS: Ms. Srinivasan is a 79-year-old female with end- stage osteoarthritis of the right hip. She has failed conservative treatment and elected to proceed with a right total hip arthroplasty. PAST MEDICAL HISTORY: Diabetes, depression, anxiety, breast cancer, GERD, and COPD. PAST SURGICAL HISTORY: Total hysterectomy, mastectomy, left total hip arthroplasty, bilateral total knee arthroplasties, cataract excision, and right elbow ORIF. CURRENT MEDICATIONS: 1. Atorvastatin calcium 20 mg q.h.s. 2. Buspirone 10 mg twice a day. 3. Citalopram 40 mg daily. 4. Omeprazole 40 mg twice a day. 5. Montelukast sodium 10 mg a day. 6. Ventolin inhaler 2 puffs 4 times a day as needed. 7. Fish oil. 8. Sumatriptan. 9. Calcium with vitamin D. 10. Advair 2 puffs twice a day. 11. Calciferol. 12. Metformin 500 mg twice a day. 13. Advil. ALLERGIES: To SULFA ANTIBIOTICS, MORPHINE causing hives and itching, LATEX, TAPE, HYDROCODONE causing her to hallucinate, FLUZONE and TRAZODONE. FAMILY HISTORY: Diabetes, stroke, cancer, COPD. SOCIAL HISTORY: She is a 79-year-old female. She lives with her . She does not smoke, use drugs or alcohol. REVIEW OF SYSTEMS: A 14-point review of systems was reviewed with the patient. It was positive for diabetes, COPD, and GERD. She denies history of DVT, PE, hepatitis, HIV, or anesthesia problems. PHYSICAL EXAMINATION GENERAL: She is well developed, well nourished, in no acute distress. VITAL SIGNS: She stands 5 feet 3 inches tall, weighs 199 pounds. Her blood pressure is 116/62, her heart rate is 84. HEENT: Normocephalic, atraumatic. NECK: Supple. No palpable lymph nodes. PULMONARY: The lungs are clear to auscultation bilaterally. CARDIO: Regular rate and rhythm. Strong S1, S2. ABDOMEN: Soft, nontender, nondistended. NEUROLOGICAL: She is alert and oriented x3. MUSCULOSKELETAL: Right lower extremity: The skin is intact. There are no open wounds or abrasions. She walks with an antalgic-type gait favoring her right hip. She has 90 degrees of hip flexion, 30 degrees of internal rotation, 30 degrees of external rotation; all reproducing groin pain. Her lower extremity muscle group strengths are intact at 5/5. She has a 2+ dorsalis pedis pulse. ASSESSMENT AND PLAN: Ms. Srinivasan is a 79-year-old female with end-stage osteoarthritis of her right hip. She has failed conservative treatment and elected to proceed with a right total hip arthroplasty. The surgery is scheduled for 02/10/[address] Patel discussed the risks and benefits of the surgery at today's visit and all of her questions were answered. She will follow up with Dr. Patel 2 weeks after the surgery. LOU TALAMANTES [id number]/[facility] #: [id number] JASMEET
[~2019-02-10 07:09] MED LIST changes: -Buffered Lidocaine 1% SYR 3ML* 3 ML/SYR SYRINGE INTRADERM ONE; +Buffered Lidocaine 1% SYRIN* 1 ML/SYRINGE INTRADERM ONE; +Gabapentin CAP(*) 300 MG PO ONE; +Lactated Ringers 1000 ML Bag* 1,000 ML IV SCH; +Tranexamic Acid 1,000 MG in NS 0.9% 50 ML* (outpatient use) IV SCH
--- OUTSIDE RECORDS SUMMARY | 2019-02-10 07:12 | XMS REPORT | Continuity of Care Document ---
:1940 External Reference #:[id number] Author Name DavinaPaola nowak Care Team Providers Name Role Phone Casey Mary MD Primary Care Physician Unavailable Payers Date Identification Numbers Payment Provider Subscriber Effective: Policy Number: [id number] Medicare Blue Ppo Lola Martins 2013 Group Number: [id number] [address] [address] PayID: [id number] [place] [address] Advance Directives Description No Information Available Problems Active Problems Provider Date Localized, primary osteoarthritis Jorge Patel M.D. Onset: 10/10/2015 Aftercare following joint replacement Jorge Patel M.D. Onset: 03/12/2016 surgery Localized, primary osteoarthritis of Jorge Patel M.D. Onset: 02/14/2018 the pelvic region and thigh Other displaced fracture of lower end Misa Sheffield NP Onset: 05/2018 of right humerus, initial encounter for closed fracture Long-term current use of insulin iMsa Sheffield NP Onset: 2017 Type 2 diabetes mellitus Misa Sheffield NP Onset: 03/14/2018 Unspecified fracture of upper end of Wil Cooper MD Onset: 03/26/2018 left humerus, subsequent encounter for fracture with routine healing Arthroplasty of knee Jorge Patel M.D. Onset: 08/20/2018 Family History Date Family Member(s) Observation Comments General Diabetes Social History Type Date Description Comments Sex Unknown Lives With Negative For Occupation Retired ETOH Use Denies alcohol use Tobacco Use Start: Unknown Patient has never smoked Smoking Status Reviewed: 01/30/19 Patient has never smoked Exercise Type/Frequency Exercises regularly Allergies, Adverse Reactions, Alerts Active Allergies Reaction Severity Comments Date Sulfa Antibiotics 08/04/2014 Morphine 08/04/2014 Latex 08/04/2014 Tape 08/04/2014 Hydrocodone 02/14/2018 Fluzone 02/14/2018 Trazodone Hallucinations 07/24/2018 Medications Active Medications SIG Qnty Indications Ordering Date Provider Oxycodone-Acetaminophen 1-2 tabs by 30tabs M25.551 Jorge Patel, 2018 mouth every 12 M.D. 5-325mg Tablets hours as needed for pain Cyclobenzaprine HCL Take 1 To 2 45tabs Jorge Patel, 09/15/2018 5mg Tablets By M.D. Tablets Mouth Every 8 Hours as Needed For Muscle Spasm Max/Day--6 Tablets Advil Unknown Metformin HCL 1 by mouth Unknown 500mg Tablets twice a day Cholecalciferol Unknown Advair HFA 2 puff twice a Unknown 115-21mcg/Act day Aerosol Calcium 500 + D twice a day Unknown [id number] Tablets Sumatriptan 1 spray per Unknown 5mg/Act Solution nostril x 1 , may repeat x 1 in 24 hours Fish Oil 1 by mouth Unknown 1000mg Capsules every day Ventolin HFA 2 puffs by Unknown 108(90Base) mouth four mcg/Act Aerosol times a day as needed Montelukast Sodium 1 by mouth Unknown 10mg every day Tablets Omeprazole 1 by mouth Unknown 40mg Capsules DR twice a day Citalopram Hydrobromide 1 by mouth Unknown 40mg every day Tablets Buspirone HCL 1 by mouth Unknown 10mg Tablets twice a day Atorvastatin Calcium take 1 tablet Unknown 20mg at bedtime Tablets History Medications Oxycodone-Acetaminophen 1-2 tabs by 60tabs Jorge Patel, 08/09/2018 - 5-325mg mouth every 4-6 M.D. 09/14/2018 Tablets hours as needed pain Tramadol HCL 1 tablet by 30tabs M16.1 Jorge Patel, 02/28/2018 - 50mg Tablets mouth every 6 1 M.D. 05/24/2018 hours as needed pain Lortab 1-2 tab by mouth 30tabs Dalia 11/22/2016 - 5-325mg Tablets every 4-6 hours Lurdes Whalen 02/13/2018 as needed pain Lortab 1 or 2 tablets 90tabs M25.5 Jorge Patel, 06/18/2016 - 5-325mg Tablets q8 hours as 64 M.D. 02/13/2018 needed pain Meloxicam take 1 tab by 30tabs M17.1 Helen 04/30/2016 - 7.5mg Tablets mouth qdaily 2 CHRISTOPHER Rubio 07/24/2018 with food [place] 1-2 by mouth 60tabs Helen 12/17/2015 - 5-325mg Tablets every 4 to 6 CHRISTOPHER Rubio 03/11/2016 hours as needed Tramadol HCL 1-2 tablets 60tabs Wil 12/17/2015 - 50mg Tablets every 6 hours as Lurdes Little 01/26/2016 needed Percocet take 1-2 pills 60tabs Dakota 12/05/2015 - 5-325mg Tablets every 6 hours as Lurdes Shrestha 01/26/2016 needed pain Coumadin 1 by mouth daily 45tabs M17.1 Helen 12/02/2015 - 2mg Tablets post operatively 1 CHRISTOPHER Rubio 03/11/2016 or as directed by megan/. do not take this medication prior to surgery Colace 1 by mouth up to 90caps M17.1 Helen 12/02/2015 - 100mg Capsules 3 times a day as 1 CHRISTOPHER Rubio 03/11/2016 needed for constipation. Comode comode- dispense M17.1 Helen 10/19/2015 - 1m17.11 1 CHRISTOPHER Rubio 06/17/[address] Ele[address] Toilet Seat dispense 2 M17.1 Helen 10/19/2015 - m17.11 1 CHRISTOPHER Rubio 06/17/2016 Indomethacin ER 1 by mouth three 60caps Dalia 12/30/2014 - 75mg Capsules ER times a day as Lurdes Whalen 10/04/2016 needed swelling or pain Ultracet 1 - 2 by mouth 30tabs Dalia 11/01/2014 - 37.5-325mg Tablets q4-6hr as needed Lurdes Whalen 12/05/2014 pain Tramadol HCL 1 by mouth every 30tabs Dalia 08/11/2014 - 50mg Tablets 4-6 as needed Lurdes Whalen 10/07/2015 pain Flexeril Unknown - 01/04/2019 Trulicity sc weekly Unknown - 0.75mg/0.5ML Solution 05/24/2018 Pen-Inject Bupropion HCL take 1 tablet Unknown - 100mg Tablets daily 01/04/2019 Lantus Unknown - 01/04/2019 Ramipril 1 by mouth every Unknown - 5mg Capsules day 06/17/2016 Imitrex as directed Unknown - 5mg/Act Solution 02/12/2017 Vitamin D- 1 by mouth every Unknown - 3000 Tablets day 02/13/2018 Ibuprofen One by mouth Unknown - 400mg Tablets three times a 12/05/2014 day as needed knee pain Aspir-Low 1 by mouth every Unknown - 81mg Tablets DR day 06/17/2016 Metformin HCL 1 by mouth twice Unknown - 500mg Tablets a day 02/13/2018 Glipizide ER 1 by mouth every Unknown - 5mg Tablets ER 24HR morning, and two 01/04/2019 tabs in the pm Medications Administered in Office Medication SIG Qnty Indications Ordering Provider Date Inj, Regadenoson, 0.1 MG Lj Knox M.D. 07/24/2018 Injection Technetium TC 99M Tetrofosmin, Lj Knox M.D. 07/24/2018 Per Unit Dose Up To 40 Millicuries Injection Depomedrol 40MG Dalia Whalen M.D. 05/01/2018 Injection Depomedrol 40MG Dalia Whalen M.D. 02/13/2017 Injection Synvisc Or Synvisc-One Jorge Patel M.D. 11/12/2016 Injection 1 MG Injection Synvisc Or Synvisc-One Jorge Patel M.D. 11/05/2016 Injection 1 MG Injection Synvisc Or Synvisc-One Jorge Patel M.D. 10/29/2016 Injection 1 MG Injection Depomedrol 40MG Jorge Patel M.D. 08/17/2016 Injection Depomedrol 40MG Jorge Patel M.D. 04/30/2016 Injection Depomedrol 80MG Dalia Whalen M.D. 12/30/2014 Injection Immunizations Description No Information Available Vital Signs Date Vital Result Comment 01/30/2019 1:29pm Height 62.5 inches 5'2.50" Weight 199.75 lb Heart Rate 84 /min Body Temperature 99.2 F Pain Level 5 BMI (Body Mass Index) 35.9 kg/m2 2019 2:39pm Height 62.5 inches 5'2.50" Weight 190.00 lb Heart Rate 96 /min BP Systolic 128 mmHg BP Diastolic 74 mmHg Pain Level 8 BMI (Body Mass Index) 34.2 kg/m2 09/15/2018 10:15am Height 63 inches 5'3" Weight 206.00 lb BP Systolic 126 mmHg BP Diastolic 84 mmHg Body Temperature 97.7 F BMI (Body Mass Index) 36.5 kg/m2 08/20/2018 11:59am Height 63 inches 5'3" Weight 206.00 lb BP Systolic 156 mmHg BP Diastolic 76 mmHg Body Temperature 98.3 F Pain Level 3 BMI (Body Mass Index) 36.5 kg/m2 07/25/2018 9:47am Height 63 inches 5'3" Weight 206.00 lb BP Systolic 119 mmHg BP Diastolic 71 mmHg Respiratory Rate 16 /min Body Temperature 97.4 F Pain Level 5 BMI (Body Mass Index) 36.5 kg/m2 06/27/2018 1:43pm Heart Rate 96 /min BP Systolic Sitting 148 mmHg BP Diastolic Sitting 86 mmHg Respiratory Rate 18 /min Body Temperature 97.6 F Pain Level 7 05/21/2018 12:05pm Height 63 inches 5'3" Weight 220.00 lb Heart Rate 72 /min Respiratory Rate 18 /min BMI (Body Mass Index) 39.0 kg/m2 05/01/2018 2:11pm Height 63 inches 5'3" Heart Rate 85 /min Respiratory Rate 18 /min Body Temperature 98.6 F Pain Level 5 04/21/2018 11:37am Height 63 inches 5'3" Pain Level 5 04/04/2018 11:36am Height 63 inches 5'3" Heart Rate 90 /min Respiratory Rate 16 /min Body Temperature 98.4 F Pain Level 5 03/26/2018 11:10am Height 63 inches 5'3" Heart Rate 89 /min Respiratory Rate 16 /min Body Temperature 97.8 F Pain Level 6 02/28/2018 1:22pm Height 63 inches 5'3" Weight 216.00 lb BP Systolic 126 mmHg BP Diastolic 60 mmHg Respiratory Rate 20 /min Pain Level 6 BMI (Body Mass Index) 38.3 kg/m2 02/14/2018 11:44am Height 63 inches 5'3" Weight 216.00 lb Heart Rate 100 /min BP Systolic 132 mmHg BP Diastolic 88 mmHg BMI (Body Mass Index) 38.3 kg/m2 02/13/2017 1:18pm Height 63.5 inches 5'3.50" Heart Rate 90 /min BP Systolic 151 mmHg BP Diastolic 70 mmHg Body Temperature 97.8 F 12/31/2016 9:01am Height 62.5 inches 5'2.50" Weight 230.00 lb Heart Rate 88 /min BP Systolic 158 mmHg BP Diastolic 82 mmHg Respiratory Rate 16 /min Body Temperature 98.1 F Pain Level 0 BMI (Body Mass Index) 41.4 kg/m2 12/10/2016 9:58am Height 62.5 inches 5'2.50" Weight 230.00 lb Respiratory Rate 20 /min Body Temperature 96.6 F Pain Level 3 BMI (Body Mass Index) 41.4 kg/m2 11/22/2016 12:58pm Height 62.5 inches 5'2.50" Weight 230.00 lb Heart Rate 83 /min BP Systolic 146 mmHg BP Diastolic 73 mmHg BMI (Body Mass Index) 41.4 kg/m2 11/12/2016 1:33pm Height 62.5 inches 5'2.50" Weight 230.00 lb Heart Rate 80 /min BP Systolic 130 mmHg BP Diastolic 76 mmHg Respiratory Rate 20 /min Pain Level 4 BMI (Body Mass Index) 41.4 kg/m2 11/05/2016 1:19pm Height 62.5 inches 5'2.50" Weight 230.00 lb Respiratory Rate 16 /min Pain Level 3 BMI (Body Mass Index) 41.4 kg/m2 10/29/2016 1:26pm Height 62.5 inches 5'2.50" Weight 230.00 lb Respiratory Rate 18 /min Pain Level 6 BMI (Body Mass Index) 41.4 kg/m2 08/17/2016 2:14pm Heart Rate 96 /min BP Systolic 148 mmHg BP Diastolic 74 mmHg Pain Level 7 06/18/2016 11:17am Heart Rate 88 /min Respiratory Rate 16 /min Pain Level 4 04/30/2016 2:14pm Height 62.5 inches 5'2.50" Weight 203.00 lb BP Systolic 128 mmHg BP Diastolic 60 mmHg BMI (Body Mass Index) 36.5 kg/m2 03/12/2016 1:44pm Height 62.5 inches Weight 205.00 lb Pain Level 0 BMI (Body Mass Index) 36.9 kg/m2 02/01/2016 10:44am Height 62.5 inches 5'2.50" Weight 205.00 lb Pain Level 6 BMI (Body Mass Index) 36.9 kg/m2 01/27/2016 2:53pm Height 62.5 inches 5'2.50" Weight 205.00 lb Pain Level 5 BMI (Body Mass Index) 36.9 kg/m2 12/26/2015 11:26am Body Temperature 99.0 F 12/26/2015 10:57am Height 62.5 inches 5'2.50" Weight 205.00 lb BMI (Body Mass Index) 36.9 kg/m2 12/02/2015 9:55am Height 62.5 inches 5'2.50" Weight 205.00 lb Heart Rate 103 /min BP Systolic 148 mmHg BP Diastolic 80 mmHg BMI (Body Mass Index) 36.9 kg/m2 11/09/2015 11:26am Height 62.5 inches 5'2.50" Weight 205.00 lb Heart Rate 100 /min BP Systolic 152 mmHg BP Diastolic 70 mmHg BMI (Body Mass Index) 36.9 kg/m2 10/10/2015 8:21am Height 62.5 inches 5'2.50" Weight 205.00 lb Heart Rate 98 /min BP Systolic 151 mmHg BP Diastolic 72 mmHg BMI (Body Mass Index) 36.9 kg/m2 12/30/2014 4:12pm Height 63.5 inches 5'3.50" Weight 206.00 lb Heart Rate 90 /min BP Systolic Sitting 124 mmHg BP Diastolic Sitting 63 mmHg Pain Level 4 BMI (Body Mass Index) 35.9 kg/m2 11/11/2014 9:02am Height 63.5 inches 5'3.50" Weight 205.00 lb Heart Rate 86 /min BMI (Body Mass Index) 35.7 kg/m2 11/01/2014 1:08pm Height 63.5 inches 5'3.50" Weight 205.00 lb Heart Rate 86 /min BP Systolic 152 mmHg BP Diastolic 82 mmHg BMI (Body Mass Index) 35.7 kg/m2 10/29/2014 1:29pm Height 63 inches 5'3" Weight 292.00 lb Heart Rate 82 /min BP Systolic 136 mmHg BP Diastolic 52 mmHg BMI (Body Mass Index) 51.7 kg/m2 08/31/2014 2:09pm Height 62 inches 5'2" Weight 196.00 lb BMI (Body Mass Index) 35.8 kg/m2 08/11/2014 3:08pm Height 62 inches 5'2" Weight 196.00 lb Body Temperature 98.7 F BMI (Body Mass Index) 35.8 kg/m2 08/04/2014 10:34am Height 62 inches 5'2" Weight 196.00 lb Heart Rate 87 /min Pain Level 2 BMI (Body Mass Index) 35.8 kg/m2 Results Test Date Facility Test Result H/L Range Note Inr/Protime 01/23/2019 [facility] Inr 0.91 N 0.77-1.[address] [place] [address] [phone] Laboratory test 01/23/2019 [facility] Partial 31.8 seconds N 26.0-36.[address] [place] [address] PTT [phone] Comp Metabolic 01/23/2019 [facility] Sodium 140 mmol/L N 135- [address] [place] [address] [phone] Potassium 4.0 mmol/L N 3.5-5.0 Chloride 105 mmol/L N 101-111 Co2 Carbon Dioxide 26 mmol/L N 22-32 Anion Gap 9 mmol/L N 2-11 Glucose 155 mg/dL High 70-100 Blood Urea Nitrogen 15 mg/dL N 6-24 Creatinine 0.60 mg/dL N 0.51-0.95 BUN/Creatinine Ratio 25.0 High 8-20 Calcium 9.2 mg/dL N 8.6-10.3 Total Protein 6.8 g/dL N 6.4-8.9 Albumin 4.0 g/dL N 3.2-5.2 Globulin 2.8 g/dL N 2-4 Albumin/Globulin Ratio 1.4 N 1-3 Total Bilirubin 0.30 mg/dL N 0.2-1.0 Alkaline Phosphatase 89 U/L N 34-104 Alt 16 U/L N 7-52 Ast 16 U/L N 13-39 Egfr Non- 96.9 >60 Egfr 117.3 >60 3 Lipid Profile 01/23/2019 [facility] Triglycerides 77 mg/dL 4 (Trig/Chol/HDL) [address] [place] [address] [phone] Cholesterol 137 mg/dL 5 HDL Cholesterol 57.1 mg/dL 6 LDL Cholesterol 65 mg/dL 7 Liver Function 01/23/2019 [facility] Direct 0.10 mg/dL N 0.03- 0.18 Panel [address] [place] [address] [phone] Indirect Bilirubin 0.2 mg/dL Low 0.3-1.0 Laboratory test 01/23/2019 [facility] Vitamin B12 463 pg/mL N 180-914 [address] [place] [address] [phone] Urinalysis Profile 01/23/2019 [facility] Urine Color Yellow [address] [place] [address] [phone] Urine Appearance Clear Urine Specific [place] 1.017 N 1.010-1.030 Urine pH 5.0 N 5-9 Urine Urobilinogen Negative Negative Urine Ketones Negative Negative Urine Protein Negative Negative Urine Leukocytes Negative Negative Urine Blood Negative Negative Urine Nitrite Negative Negative Urine Bilirubin Negative Negative Urine Glucose Negative Negative Urine Microalbumin 01/23/2019 [facility] Ur Microalbumin < 15.[address] (mg/L) mg/[place] [address] [phone] Urine Creatinine 105.62 mg/dL Urine Microalbumin/Creatinine TNP <31 9 Inr/Protime 07/25/2018 [facility] Inr 0.98 N 0.77-1.[address] [place] [address] [phone] Laboratory test 07/25/2018 [facility] Partial 29.8 seconds N 26.0-36.[address] [place] [address] PTT [phone] Type & Screen 07/25/2018 [facility] Patient O Positive [address] [place] [place] [address] [phone] Antibody Screen NEGATIVE Urinalysis Profile 07/25/2018 [facility] Urine Color Yellow [address] [place] [address] [phone] Urine Appearance Clear Urine Specific [place] 1.011 N 1.010-1.030 Urine pH 5.0 N 5-9 Urine Urobilinogen Negative Negative Urine Ketones Negative Negative Urine Protein Negative Negative Urine Leukocytes Negative Negative Urine Blood Negative Negative Urine Nitrite Negative Negative Urine Bilirubin Negative Negative Urine Glucose Negative Negative Urine Culture And 07/25/2018 [facility] Urine Culture SEE RESULT [address] [place] [address] [phone] Urinalysis Profile 02/28/2018 [facility] Urine Color Straw [address] [place] [address] [phone] Urine Appearance Clear Urine Specific [place] 1.006 Low 1.010-1.030 Urine pH 5.0 N 5-9 Urine Urobilinogen Negative Negative Urine Ketones Negative Negative Urine Protein Negative Negative Urine Leukocytes Negative Negative Urine Blood Negative Negative Urine Nitrite Negative Negative Urine Bilirubin Negative Negative Urine Glucose Negative Negative CBC Auto Diff 02/28/2018 [facility] White Blood 8.5 10^3/uL N 3.5-10.[address] [place] [address] [phone] Red Blood Count 4.77 10^6/uL N 4.0-5.4 Hemoglobin 13.5 g/dL N 12.0-16.0 Hematocrit 41 % N 35-47 Mean Corpuscular Volume 85 fL N 80-97 Mean Corpuscular Hemoglobin 28 pg N 27-31 Mean Corpuscular HGB Conc 33 g/dL N 31-36 Red Cell Distribution Width 14 % N 10.5-15 Platelet Count 228 10^3/uL N 150-450 Mean Platelet Volume 8.1 um3 N 7.4-10.4 Abs Neutrophils 5.1 10^3/uL N 1.5-7.7 Abs Lymphocytes 2.5 10^3/uL N 1.0-4.8 Abs Monocytes 0.7 10^3/uL N 0-0.8 Abs Eosinophils 0.2 10^3/uL N 0-0.6 Abs Basophils 0.1 10^3/uL N 0-0.2 Abs Nucleated RBC 0 10^3/uL Granulocyte % 59.2 % N 38-83 Lymphocyte % 29.2 % N 25-47 Monocyte % 8.4 % High 0-7 Eosinophil % 2.2 % N 0-6 Basophil % 1.0 % N 0-2 Nucleated Red Blood Cells % 0 Comp Metabolic Panel 02/28/2018 [facility] Sodium 136 mmol/L Low 139-[address] [place] [address] [phone] Potassium 4.0 mmol/L N 3.5-5.0 Chloride 102 mmol/L N 101-111 Co2 Carbon Dioxide 24 mmol/L N 22-32 Anion Gap 10 mmol/L N 2-11 Glucose 126 mg/dL High 70-100 Blood Urea Nitrogen 19 mg/dL N 6-24 Creatinine 0.78 mg/dL N 0.51-0.95 BUN/Creatinine Ratio 24.4 High 8-20 Calcium 9.5 mg/dL N 8.6-10.3 Total Protein 7.4 g/dL N 6.4-8.9 Albumin 4.3 g/dL N 3.2-5.2 Globulin 3.1 g/dL N 2-4 Albumin/Globulin Ratio 1.4 N 1-3 Total Bilirubin 0.40 mg/dL N 0.2-1.0 Alkaline Phosphatase 71 U/L N 34-104 Alt 37 U/L N 7-52 Ast 27 U/L N 13-39 Egfr Non- 71.8 >60 Egfr 92.3 >60 12 Inr/Protime 02/28/2018 [facility] Inr 0.93 N 0.77-1.[address] [place] [address] [phone] Laboratory test 02/28/2018 [facility] Partial 32.4 seconds N 26.0-36.[address] [place] [place] [address] PTT [phone] Type & Screen 02/28/2018 [facility] Patient O Positive [address] [place] [address] [phone] Antibody Screen NEGATIVE Urine Culture And 02/28/2018 [facility] Urine SEE RESULT [address] [place] [address] [phone] Laboratory test 11/27/2016 [facility] Point of 150 mg/dL High 74-1 [address] Care Glucose 06 [place] [address] [phone] Type & Screen 12/02/2015 [facility] Patient O Positive N [address] Blood Type [place], [place] [address] [phone] Antibody Screen NEGATIVE N Laboratory test 12/02/2015 [facility] Urine Culture And SEE RESULT [address] [address] [phone] Comp Metabolic 12/02/2015 [facility] Sodium 133 mmol/L N 133- [address] [place] [address] [phone] Potassium 4.4 mmol/L N 3.5-5.0 Chloride 100 mmol/L Low 101-111 Co2 Carbon Dioxide 25 mmol/L N 22-32 Anion Gap 8 mmol/L N 2-11 Glucose 180 mg/dL High 70-100 Blood Urea Nitrogen 18 mg/dL N 6-24 Creatinine 0.78 mg/dL N 0.51-0.95 BUN/Creatinine Ratio 23.1 High 8-20 Calcium 9.6 mg/dL N 8.6-10.3 Total Protein 7.4 g/dL N 6.4-8.9 Albumin 4.2 g/dL N 3.2-5.2 Globulin 3.2 g/dL N 2-4 Albumin/Globulin Ratio 1.3 N 1-3 Total Bilirubin 0.60 mg/dL N 0.2-1.0 Alkaline Phosphatase 74 U/L N 34-104 Alt 23 U/L N 7-52 Ast 21 U/L N 13-39 Egfr Non- 72.4 N >60 Egfr 93.1 N >60 17 Laboratory test 12/02/2015 [facility] Partial 33.0 seconds N 26.0-36.3 [address] [place] [address] PTT [phone] Inr/Protime 12/02/2015 [facility] Inr 1.01 N 0.89-1.[address] [place] [address] [phone] Urinalysis 12/02/2015 [facility] Urine Color Gabby N Profile [address] [place] [address] [phone] Urine Appearance Cloudy N Urine Specific [place] 1.021 N 1.010-1.030 Urine pH 5.0 N 5-9 Urine Urobilinogen Negative N Negative Urine Ketones Negative N Negative Urine Protein Negative N Negative Urine Leukocytes Negative N Negative Urine Blood Negative N Negative Urine Nitrite Negative N Negative Urine Bilirubin Negative N Negative Urine Glucose Negative N Negative CBC No Diff 12/02/2015 [facility] White Blood 7.9 10^3/uL N 3.5-10.[address] [place] [address] [phone] Red Blood Count 4.84 10^6/uL N 4.0-5.4 Hemoglobin 12.8 g/dL N 12.0-16.0 Hematocrit 40 % N 35-47 Mean Corpuscular Volume 83 fL N 80-97 Mean Corpuscular Hemoglobin 26 pg Low 27-31 Mean Corpuscular HGB Conc 32 g/dL N 31-36 Red Cell Distribution Width 17 % High 10.5-15 Platelet Count 231 10^3/uL N 150-450 Mean Platelet Volume 8 um3 N 7.4-10.4 Laboratory test 08/15/2015 [facility] Vitamin D 22.6 ng/mL Low 30-[address] Total 25(Oh) [place], [place] [id number] [phone] CBC Auto Diff 11/01/2014 [facility] White Blood 6.1 N 4.8- 10.[address] Count 10^3/[place] [address] [phone] Red Blood Count 4.31 10^6/uL N 4.0-5.4 Hemoglobin 11.8 g/dL Low 12.0-16.0 Hematocrit 36 % N 35-47 Mean Corpuscular Volume 84 fL N 80-97 Mean Corpuscular Hemoglobin 28 pg N 27-31 Mean Corpuscular HGB Conc 33 g/dL N 31-36 Red Cell Distribution Width 14 % N 10.5-15 Platelet Count 272 10^3/uL N 150-450 Mean Platelet Volume 9 um3 N 7.4-10.4 Abs Neutrophils 3.7 10^3/uL N 1.5-7.7 Abs Lymphocytes 1.7 10^3/uL N 1.0-4.8 Abs Monocytes 0.5 10^3/uL N 0-0.8 Abs Eosinophils 0.2 10^3/uL N 0-0.6 Abs Basophils 0.1 10^3/uL N 0-0.2 Abs Nucleated RBC 0.01 10^3/uL N Granulocyte % 59.9 % N 38-83 Lymphocyte % 27.3 % N 25-47 Monocyte % 8.1 % N 1-9 Eosinophil % 3.4 % N 0-6 Basophil % 1.3 % N 0-2 Nucleated Red Blood Cells % 0.1 N Comp Metabolic Panel 11/01/2014 [facility] Sodium 136 mmol/L N 133-[address] [place] [address] [phone] Potassium 4.0 mmol/L N 3.5-5.0 Chloride 101 mmol/L N 101-111 Co2 Carbon Dioxide 28 mmol/L N 22-32 Anion Gap 7 mmol/L N 2-11 Glucose 178 mg/dL High 70-100 Blood Urea Nitrogen 15 mg/dL N 6-24 Creatinine 0.72 mg/dL N 0.51-0.95 BUN/Creatinine Ratio 20.8 High 8-20 Calcium 9.1 mg/dL N 8.6-10.3 Total Protein 6.9 g/dL N 6.4-8.9 Albumin 3.9 g/dL N 3.2-5.2 Globulin 3.0 g/dL N 2-4 Albumin/Globulin Ratio 1.3 N 1-3 Total Bilirubin 0.60 mg/dL N 0.2-1.0 Alkaline Phosphatase 92 U/L N 34-104 Alt 17 U/L N 7-52 Ast 17 U/L N 13-39 Egfr Non- 79.6 N >60 Egfr 102.4 N >60 19 Laboratory test 11/01/2014 [facility] Urine Random 109.89 mg/dL N finding [address] [place] [address] [phone] Liver Function 11/01/2014 [facility] Direct Bilirubin 0.10 mg/ dL N 0.03-[address] [place] [address] [phone] Indirect Bilirubin 0.5 mg/dL N 0.3-1.0 Lipid Profile 11/01/2014 [facility] Triglycerides 89 mg/dL N 20 (Trig/Chol/HDL) [address] [place] [address] [phone] Cholesterol 141 mg/dL N 21 HDL Cholesterol 56.0 mg/dL N 22 LDL Cholesterol 67 mg/dL N 23 1 [id number] CC RESULTS TO : JORGE PATEL MD [phone] 2 [id number] CC RESULTS TO : JORGE PATEL MD [phone] 3 Because ethnic data is not always [...] 5 Kidney failure <15 (or dialysis) 4 Desirable: <150 Borderline High: 150-199 High: 200-499 Very High: >500 5 Desirable: <200 Borderline High: 200-239 High: >239 6 Low: <40 Desirable: 40-60 High: >60 7 Desirable: <100 Near Optimal: 100-129 Borderline High: 130-159 High: 160-189 Very High: >189 8 Normal Range 180 to 914 Indeterminate Range 145 to 180 Deficient Range <145 9 Unable to calculate due to low microalbumin 10 PAIN IN LEFT KNEE, EFFUSION, LEFT KNEE, UNILATERAL 11 SEE RESULT BELOW Name: LOLA MARTINS : [address]: Jorge Patel MD Acct: [id number] Unit: [id number] AGE: 78 Location: [facility] Re07/25/18 SEX: F Status: REG REF SPEC: [id number] SHANELL: 07/25/18 [facility] DR: Jorge Patel MD REQ: [id number] RECD: 07/25/18 STATUS: COMP _ SOURCE: URINE SPDESC: ORDERED: Urine Culture QUERIES: Urine Source: Clean Catch Procedure Result Reported Site Urine Culture Final 07/26/18- 1411 ML No Growth (<1,000 CFU/mL) * ML - Main Lab . END OF REPORT DEPARTMENT OF PATHOLOGY, [address] [place] [address] Cholo Hoffmann M.D. Director [facility] # [id number] 12 Because ethnic data is not always readily [...] 15-29 5 Kidney failure <15 (or dialysis) 13 SEE RESULT BELOW Name: LOLA MARTINS : [address]: Jorge Patel MD Acct: [id number] Unit: [id number] AGE: 78 Location: [facility] Re02/28/18 SEX: F Status: REG REF SPEC: [id number] SHANELL: 02/28/[address]: Jorge Patel MD REQ: [id number] RECD: 02/28/18 STATUS: COMP _ SOURCE: URINE SPDESC: ORDERED: Urine Culture QUERIES: Urine Source: Clean Catch Procedure Result Reported Site Urine Culture Final 03/01/18- 1602 ML No growth of clinically significant organisms * ML - Main Lab . END OF REPORT DEPARTMENT OF PATHOLOGY, [address] [place] [id number] Cholo Hoffmann M.D. Director [facility] # [id number] Bone Worker: [id number] ANNIE MARIA 15 12/12 SEE RESULT BELOW Name: LOLA MARTINS : [address]: Jorge Patel MD Acct: [id number] Unit: [id number] AGE: 75 Location: [facility] Re12/02/15 SEX: F Status: REG REF SPEC: [id number] SHANELL: 12/02/15-1307 [facility] DR: Jorge Patel MD REQ: [id number] RECD: 12/02/151402 STATUS: ARNAUD PENA DR: Casey Mary MD _ SOURCE: URINE SPDESC: ORDERED: Urine Culture QUERIES: Urine Source: Clean Catch Procedure Result Reported Site Urine Culture Final 12/03/15- 1317 ML No Growth (<1,000 CFU/mL) * ML - MAIN LAB (PSC1) . END OF REPORT * ML=Testing performed at Main Lab DEPARTMENT OF PATHOLOGY, [address] [place] [address] Cholo Hoffmann M.D. Director [facility] # [id number] 17 Because ethnic data is not always readily [...] 15-29 5 Kidney failure <15 (or dialysis) 18 AA 12/12 19 Because ethnic data is not always readily [...] 15-29 5 Kidney failure <15 (or dialysis) 20 Desirable <150 Borderline high 150-199 High 200-499 Very High >500 21 Desirable <200 Borderline high 200-239 High >239 22 Low <40 Desirable: 40-60 High: >60 23 Desirable <100 Near Optimal 100-129 Borderline high 130-159 High 160-189 Very High >189 Procedures Date Code Description Status 08/05/2018 05135 TKR Total Knee Replacement Completed 08/05/2018 66117 TKR Total Knee Replacement Completed 07/25/2018 32884 EKG, Interpretation Only Completed 07/24/2018 26380 Stress Test Completed 07/24/2018 17992 Myocardial Perfusion Imaging Tomographic (Spect) Multiple Completed Studies 05/01/2018 90869 Inject/Drain Joint/Bursa Small W/O US Completed 03/15/2018 96101 FX Supra/Transcondyle Humerus Open TX W/Intercondylar Completed Extension 03/15/2018 58571 FX Supra/Transcondyle Humerus Open TX W/Intercondylar Completed Extension 02/13/2017 80168 Inject/Drain Joint/Bursa Small W/O US Completed 11/27/2016 07213 Open TX Distal Radial Extra-Ar Completed 11/27/2016 08139 Open TX Distal Radial Extra-Ar Completed 11/12/2016 88563 Inject/Drain Joint/Bursa Major W/O US Completed 11/05/2016 03042 Inject/Drain Joint/Bursa Major W/O US Completed 10/29/2016 53978 Inject/Drain Joint/Bursa Major W/O US Completed 08/17/2016 56405 Inject/Drain Joint/Bursa Major W/O US Completed 07/20/2016 81461 EKG, Interpretation Only Completed 04/30/2016 62068 Inject/Drain Joint/Bursa Major W/O US Completed 12/13/2015 92028 TKR Total Knee Replacement Completed 12/13/2015 29798 TKR Total Knee Replacement Completed 11/07/2015 98166 Treadmill Interp/Report Only Completed 11/07/2015 54224 Stress Test Supervsn W/Out I/R Completed 12/30/2014 34038 Inject Tendon Sheath Or Ligament Aponeurosis Eg Plantar Completed Fascia 11/02/2014 46607 FX Ulna Proximal (Olecranon) Open TX W/Wo Fixation Completed 11/02/2014 84370 FX Ulna Proximal (Olecranon) Open TX W/Wo Fixation Completed 10/29/2014 56748 Rad Exam; Elbow, Comp Completed 10/29/2014 88909 Rad Shoulder Comp, Min. 2 Views Completed 08/11/2014 00543 Rad Exam; Wrist, Comp, Min 3 Views Completed 08/11/2014 74712 Rad Exam; Wrist, Comp, Min 3 Views Completed 08/04/2014 65405 Closed TX Metacarpal FX Single W/O Manipulation, Ea Bone Completed Encounters Type Date Location Provider Dx Diagnosis Office Visit 2019 [facility] Jorge Patel, M25.551 Pain in right hip 2:00p [facility] M16.11 Unilateral primary osteoarthritis, right hip Office Visit 06/27/2018 1:45p [facility] Jorge Patel M25.562 Pain in left Of [facility] Chatman knee M25.462 Effusion, left knee M17.12 Unilateral primary osteoarthritis, left knee Office Visit 03/31/2018 9:30a [facility] Dayan E11.8 Type 2 diabetes [place], 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 lower end of right humerus, init for clos fx S42.202A Unsp fracture of upper end of left humerus, init for clos fx E11.8 Type 2 diabetes mellitus with unspecified complications M16.11 Unilateral primary osteoarthritis, right hip Office Visit 03/14/2018 Orthopedic Wil Cooper S42.491A Oth disp fx 11:25a [facility] LAWS of lower end of right humerus, init for clos fx Office Visit 03/14/2018 [facility] Misa Mayen S42.491A Oth disp fx 8:42a [facility] NP of lower end Hospitalists of right humerus, init for clos fx S42.202A Unsp fracture of upper end of left humerus, init for clos fx 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 hip M25.551 Pain in right hip Office Visit 02/13/2017 1:30p [facility] Dalia S52.551D Oth extrartic [facility] Whalen fx low end r C.M.A. rad, 7thD M18.11 Unil primary osteoarth of first carpometacarp joint, r hand M65.831 Other synovitis and tenosynovitis, right forearm Office Visit 11/22/2016 [facility] Dalia S52.551A Oth extrartic 1:30p [facility] fracture of lower C.M.A. end of right radius, init Office Visit 07/20/2016 [facility] Jina J44.1 Chronic 4:03p [facility] M.D. obstructive Hospitalists pulmonary disease w (acute) exacerbation E11.9 Type 2 diabetes mellitus without complications Office Visit 06/18/2016 11:15a [facility] Jorge Patel, M25.562 Pain in left Of C.M.A. M.D. knee M17.12 Unilateral primary osteoarthritis, left knee Z96.651 Presence of right artificial knee joint Office Visit 11/09/2015 11:00a [facility] Jorge Patel, R42 Dizziness and Of C.M.A. M.D. giddiness M17.11 Unilateral primary osteoarthritis, right knee M25.561 Pain in right knee M25.461 Effusion, right knee Office Visit 11/07/2015 10:30a [facility] Stephen Lee, I20.8 Other forms of Assocs[facility] M.D. angina pectoris Hospitalists E11.9 Type 2 diabetes mellitus without complications R42 Dizziness and giddiness R06.02 Shortness of breath Office Visit 10/10/2015 Orthopedic Jorge M17.11 Unilateral primary 8:00a [facility] osteoarthritis, right C.M.A. knee M25.561 Pain in right knee M25.461 Effusion, right knee Office Visit 10/29/2014 1:15p [facility] Jorge Patel, 719.42 [facility].Candice Chatman Upper Arm Plan of Treatment Future Appointment(s):02/10/2019 9:30 am - Mykel Oneil PA-C at [facility].A.02/10/2019 9:30 am - LOU Madrigal at [facility].A.02/10/2019 9:30 am - Jorge Patel M.D. at [facility].A.02/23/2019 2:15 pm - Jorge Patel M.D. at [facility]..01/30/2019 - Jorge Patel M.D.M25.551 Pain in right hipFollow up:Follow up: 2 weeks after tgfzramX39.11 Unilateral primary osteoarthritis, right hip
[2019-02-10] MEDS ORDERED: Gabapentin CAP(*) 300 MG ONE (07:53)
[2019-02-10] MEDS ORDERED: ceFAZolin 2 GM PREMIX in ORs 2 GM/50 ML BAG IVPB ONE (07:53)
[2019-02-10] MEDS ORDERED: Famotidine IV* 10 MG/ML 2 ML (20 mg) ONE (07:53)
[2019-02-10] MEDS ORDERED: fentaNYL* 50 MCG/ML 2 ML VIAL (100 MCG VIAL) ONE ×3 (07:57→12:36)
[2019-02-10] MEDS ORDERED: Midazolam* 1 MG/ML 5 ML VIAL (5 MG) ONE (07:58)
[2019-02-10] MEDS ORDERED: ROPIVACAINE 5 MG/ML 30 ML BTL (0.5%) ONE (09:23)
[2019-02-10] MEDS ORDERED: KETAMINE HCL* 50 MG/ML 10 ML VIAL ONE (09:47)
[2019-02-10] MEDS ORDERED: Dexamethasone IV* 4 MG/ML 1 ML (4 MG) ONE (10:12)
[2019-02-10] MEDS ORDERED: Ondansetron INJ* 2 MG/ML VIAL ONE (10:12)
[2019-02-10] MEDS ORDERED: Lidocaine 2% PF * 5 ML VIAL ONE (10:12)
[2019-02-10] MEDS ORDERED: Ketorolac INJ* 30 MG/ML 1 ML VIAL ONE (10:12)
[2019-02-10] MEDS ORDERED: DiMENhydriNATE IV* 50 MG/ML VIAL ONE (10:12)
[2019-02-10] MEDS ORDERED: Succinylcholine* 20 MG/ML 10 ML VIAL ONE (10:12)
[2019-02-10] MEDS ORDERED: Propofol* 10 MG/ML 20 ML BTL ONE (10:12)
[2019-02-10] MEDS ORDERED: Midazolam* 1 MG/ML 2 ML VIAL (2 MG) ONE (11:22)
[2019-02-10] MEDS ORDERED: Acetaminophen IV 1GM/100ML * 100 ML ONE (12:18)
[2019-02-10] MEDS ORDERED: oxyCODONE TAB* 5 MG TAB PO PRN (12:22)
[2019-02-10] MEDS ORDERED: Naloxone* 0.4 MG/ML 1 ML VIAL IV PRN (12:22)
[2019-02-10] MEDS ORDERED: Acetaminophen IV 1GM/100ML * 1,000 MG/100 ML VIAL IVPB ONE (12:22)
[2019-02-10] MEDS ORDERED: DiMENhydriNATE IV* 50 MG/ML VIAL IV PUSH PRN (12:22)
[2019-02-10] MEDS ORDERED: Gabapentin CAP(*) 100 MG PO ONE (12:23)
[2019-02-10] MEDS ORDERED: Ondansetron INJ* 2 MG/ML VIAL IV PRN (12:26)
[2019-02-10] MEDS ORDERED: Cyclobenzaprine TAB* 10 MG PO PRN (12:26)
[2019-02-10] MEDS ORDERED: Magnesium Hydroxide LIQ* 30 ML UDC PO PRN (12:26)
[2019-02-10] MEDS ORDERED: oxyCODONE/Acetamin 5/325 MG* TAB PO PRN (12:26)
[2019-02-10] MEDS ORDERED: Bisacodyl SUPP* 10 MG SUPP PR PRN (12:26)
[2019-02-10] MEDS ORDERED: diPHENhydraMINE IV* 50 MG/ML 1 ml VIAL (BENADRYL) IV PRN (12:26)
[2019-02-10] MEDS ORDERED: Morphine 4 MG/ML VIAL (1 ml) 4 MG/ML VIAL IV PRN (12:26)
[2019-02-10] MEDS ORDERED: Acetaminophen TAB* 325 MG PO PRN (12:26)
[2019-02-10] MEDS ORDERED: Albuterol HFA INHALER* 8 gm MDI INH PRN (12:30)
[2019-02-10] MEDS ORDERED: Albuterol/Ipratropium NEB.SOL* Albuterol 2.5 MG/Ipratropium 0.5 MG 3 ML INH PRN (12:30)
[2019-02-10] MEDS ORDERED: SUMATRIPTAN ALT NARE PRN (12:30)
[2019-02-10] MEDS ORDERED: Gabapentin CAP(*) 100 MG ONE (12:32)
[2019-02-10] MEDS: fentaNYL* 50 MCG/ML 2 ML VIAL (100 MCG VIAL) IV PRN ×3 (12:39→13:12)
[2019-02-10] MEDS ORDERED: Lactated Ringers 1000 ML Bag* 1,000 ML IV SCH (13:00)
[2019-02-10] MEDS ORDERED: oxyCODONE TAB* 5 MG TAB ONE (13:39)
--- NOTE | 2019-02-10 13:56 | PN ---
Progress Note - Progress Note Date of Service: 02/10/19 Note: resting comfortably in recovery; pain well controlled. able to dorsi flex/ plantar flex, 2+ DP pulse and intact sensation. dressing c/d/i. abduction pillow in place
[2019-02-10] MEDS ORDERED: HYDROmorphone INJ1* 1 MG/ML SYRINGE IV SLOW PU PRN ×2 (15:55→15:56)
[2019-02-10] MEDS: oxyCODONE/Acetamin 5/325 MG* TAB PO PRN ×2 (16:19→20:36)
[2019-02-10] MEDS: ceFAZolin 1 GM ADVAN(*) 1 GM in NS 0.9% 50 ML* 50 ML IVPB SCH (17:41)
--- NOTE | 2019-02-10 18:01 | OP ---
Operative Report - Blank - Operative Report Date of Operation: 02/10/19 Note: ADONAY MARTINS 1940 Date Of Surgery: 02/10/19 Anastasia Patel MD Automation Lead: Mykel Oneil MD did help throughout the procedure with preparation of the hip, wound retraction, manipulation of the hip, and wound closure. Anesthesiologist: Ced Whitman MD Anesthesia Type: General Preoperative Diagnosis: Right severe degenerative osteoarthritis of the hip Postoperative Diagnosis: As above Procedure Performed: Right Total Hip Arthroplasty Complications: None Specimen: Femoral head and acetabular reamings sent to pathology. Hardware used: This is uncemented [place] total hip arthroplasty hardware for the femur a size 3 right accolade II with 127 degree neck femoral component, for the acetabulum a size 50 D trident II tritanium cluster hole shell, one 15 mm screw, for the insert a size 32 D 0 degree polyethylene trident x3 insert, and for the femoral head a size 32 + 0 ceramic biolox V40 femoral head. Brief history/Indication: ADONAY MARTINS was known in clinic and had a history of severe right hip pain. She failed conservative treatment with anti- inflammatories, pain pills, intra-articular injections and physical therapy. She elected to undergo right total hip arthroplasty due to continued pain and decreased quality of life. Radiographs showed severe end stage osteoarthritis of the hip with bone on bone contact. Informed consent was obtained from the patient. She understood the risks of surgery included but were not limited to: bleeding, infection, damage to nearby structures, intraoperative fracture, nerve palsy, failure of the hardware, early loosening, stiffness or loss of motion, dislocation, leg length discrepancy, anesthesia complications, stroke, heart attack, blood clot and . She wished to proceed. Intra-Operative findings: Intraoperatively the patient was noted to have severe loss of cartilage of the acetabulum and femoral head. Description of the Procedure: ADONAY MARTINS was identified in the preanesthesia unit. Her right hip was marked as the correct operative side. Informed consent was signed and placed in the chart. The patient was taken to the operating room and placed under anesthesia without complication. A nino catheter was placed. The patient was placed on the peg board with all bony prominences well padded. The right lower extremity was prepped and draped in the usual sterile fashion. Preoperative time -out was made to correctly identify the patient, side and site. Appropriate intraoperative antibiotics were given within one hour of incision. A standard posterior incision was made and carried sharply down to the lateral fascia. A new 10 blade was used to make an incision in the fascia in line with the skin incision. A charnley retractor was placed. The piriformis and conjoined tendons were identified and elevated off the posterolateral femur using electrocautery. These were tagged with number 5 Ethibond. Next electrocautery was used to make a posterolateral capsular flap and this was tagged with number 5 Ethibonds. The hip was carefully dislocated. Lesser trochanter to the center of the femoral head was measured at 55 mm. The oscillating saw was used to make the femoral neck cut. The femoral head was carefully removed. The femur was retracted anteriorly and the acetabular retractors were placed. Long-handled knife was used to sharply remove any remaining labrum from the acetabular rim. The acetabulum was sequentially reamed up to a size 49. A bleeding subchondral bone bed was obtained. A trial cup was placed and had excellent fit and stability. A 50 D trident II tritanium cup was placed and had excellent stability with appropriate anteversion and abduction angle. A 15 mm screw was placed for extra stability. A size 32 D poly liner was impacted into the acetabular shell. The liner was checked for stability and was stable. Next attention was turned to preparation of the femoral canal. A canal finder was used to enter the proximal femur. The femoral canal was sequentially broached up to a size 3 femoral broach trial. A trial neck and 32 +0 trial femoral head was chosen. Lesser trochanter to center of the femoral head measurement was satisfactory. The hip was reduced and taken through a range of motion. The hip was stable in all positions with good soft tissue tension and appropriate leg lengths. The hip was dislocated and all trials were removed. The final implant chosen was a size 3 accolade II with 127 degree neck. This stem was impacted into the femoral canal without difficulty. The stem was stable with appropriate anteversion. The femoral head chosen was a 32 + 0 ceramic biolox head. The head was impacted onto the femoral neck without difficulty. The final lesser trochanter to center of the femoral head measurement was satisfactory. The hip was reduced and taken through a range of motion. The hip was stable in all positions with good soft tissue tension and appropriate leg lengths. The hip was copiously irrigated with sterile saline. The previously tagged capsule and tendons were repaired to the posterolateral femur through two trochanteric drill holes. The lateral fascia layer was closed using number 1 vicryls. The rest of the incision was closed in a layered fashion using 0 and 2-0 vicryls. The skin was closed using 3-0 monocryl suture and Dermabond. Sterile adaptic, 4x4s and paper tape was used to cover the incision. The patients anesthesia was reversed without difficulty. She was taken to the PACU in stable condition. Intended weight-bearing will be as tolerated with posterior hip precautions.
[2019-02-10] MEDS: Mometasone/Formoter 200/5 MDI INH SCH (19:34)
[2019-02-10] MEDS: Apixaban* 2.5 MG TAB PO SCH (20:36)
[2019-02-10] MEDS: Atorvastatin* 20 MG TAB PO SCH (20:37)
[2019-02-10] MEDS: metFORMIN* 500 MG TAB PO SCH (20:37)
[2019-02-10] MEDS: busPIRone TAB* 10 MG PO SCH (20:37)
[2019-02-10] MEDS: Docusate CAP* 100 MG PO SCH (20:37)
[2019-02-10] MEDS: Magnesium Hydroxide LIQ* 30 ML UDC PO SCH (20:42)
[2019-02-11] MEDS: oxyCODONE TAB* 5 MG TAB PO PRN ×5 (00:01→21:58)
[2019-02-11] MEDS: Mometasone/Formoter 200/5 MDI INH SCH ×3 (00:02→20:41)
[2019-02-11] MEDS: ceFAZolin 1 GM ADVAN(*) 1 GM in NS 0.9% 50 ML* 50 ML IVPB SCH ×2 (01:44→09:49)
[2019-02-11] MEDS: oxyCODONE/Acetamin 5/325 MG* TAB PO PRN ×4 (03:34→20:38)
[2019-02-11 07:22] LABS: Hematocrit 27 % (35-47); Hemoglobin 9.2 g/dL (12.0-16.0); Mean Platelet Volume 8.4 fL (7.4-10.4); Platelet Count 161 10^3/uL (150-450)
[2019-02-11 07:39] LABS: BUN/Creatinine Ratio 18.8 (8-20); Calcium 8.6 mg/dL (8.6-10.3); EGFR African American 108.9 (>60); Potassium 4.1 mmol/L (3.5-5.0)
[2019-02-11] MEDS: busPIRone TAB* 10 MG PO SCH ×2 (07:53→20:38)
[2019-02-11] MEDS: metFORMIN* 500 MG TAB PO SCH ×2 (07:53→20:38)
[2019-02-11] MEDS: Docusate CAP* 100 MG PO SCH ×2 (07:54→20:37)
[2019-02-11] MEDS: Vitamin THERAPEUTIC TAB PO SCH (07:54)
[2019-02-11] MEDS: Citalopram TAB* 40 MG PO SCH (07:54)
[2019-02-11] MEDS: Cyclobenzaprine TAB* 10 MG PO PRN ×3 (07:54→20:39)
[2019-02-11] MEDS: Apixaban* 2.5 MG TAB PO SCH ×2 (07:54→20:40)
[2019-02-11] MEDS: Magnesium Hydroxide LIQ* 30 ML UDC PO SCH ×2 (07:58→20:40)
--- NOTE | 2019-02-11 08:58 | PN ---
Subjective - Subjective Reason for Note: Progress Note History: She is Day 1 post right SIVA. She tolerated this very well. She has eaten and taken fluids with no problem. Pain control is excellent. She has yet to have a bowel movement. Her glucose is under good control. She has had some wheezing from her asthma that has been successfully managed with a nebuliser. Active Problems: Active Problems History of total right hip arthroplasty (Acute) Z96.641 Anxiety disorder (Chronic) F41.9 Essential hypertension (Chronic) I10 GERD (gastroesophageal reflux disease) (Chronic) K21.9 History of breast cancer (Chronic) Z85.3 History of intracranial hemorrhage (Chronic) Z86.79 Migraine (Chronic) G43.909 Obesity, Class II, BMI 35.0-39.9, with comorbidity (see actual BMI) (Chronic) E66.01 Osteoarthritis of right knee (Chronic) M17.9 S/P total knee arthroplasty (Chronic 12/13/15) Z96.659 Status post total left knee replacement (Chronic) Z96.652 Type 2 diabetes mellitus (Chronic) Current Medications: Current Medications Acetaminophen (Tylenol Tab*) 650 mg PO Q8H PRN PRN Reason: PAIN OR TEMPERATURE Albuterol (Ventolin Hfa Inhaler*) 2 puff INH Q4HR PRN PRN Reason: SOB/WHEEZING Last Admin: 02/11/19 01:42 Dose: 2 puff Albuterol/Ipratropium (Duoneb (Albuterol 2.5 Mg/Ipratropium 0.5 Mg)) 1 neb INH Q6H PRN PRN Reason: SOB/WHEEZING Last Admin: 02/11/19 04:39 Dose: 1 neb Apixaban (Eliquis*) 2.5 mg PO BID [facility] Last Admin: 02/11/19 07:54 Dose: 2.5 mg Atorvastatin Calcium (Lipitor*) 20 mg PO 2100 [facility] Last Admin: 02/10/19 20:37 Dose: 20 mg Bisacodyl (Dulcolax Supp*) 10 mg TX DAILY PRN PRN Reason: constipation Buspirone HCl (Buspar Tab*) 10 mg PO BID [facility] Last Admin: 02/11/19 07:53 Dose: 10 mg Citalopram Hydrobromide (Celexa Tab*) 40 mg PO QAM [facility] Last Admin: 02/11/19 07:54 Dose: 40 mg Cyclobenzaprine HCl (Flexeril Tab*) 10 mg PO TID PRN PRN Reason: SPASMS Last Admin: 02/11/19 07:54 Dose: 10 mg Diphenhydramine HCl (Benadryl Iv*) 25 mg IV Q6H PRN PRN Reason: itching Docusate Sodium (Colace Cap*) 100 mg PO BID [facility] Last Admin: 02/11/19 07:54 Dose: 100 mg Hydromorphone HCl (Dilaudid Inj1s*) 0.5 mg IV SLOW PU Q4H PRN PRN Reason: PAIN - BREAKTHROUGH Hydromorphone HCl (Dilaudid Inj1s*) 1 mg IV SLOW PU Q4H PRN PRN Reason: Pain - unrelieved Cefazolin Sodium 1 gm/ Sodium (Chloride) 50 mls @ 200 mls/hr IVPB Q8H [facility] Stop: 02/11/19 10:14 Last Admin: 02/11/19 01:44 Dose: 200 mls/hr Lactated Ringer's (Lactated Ringers 1000 Ml Bag*) 1,000 mls @ 100 mls/hr IV PER RATE [facility] Last Admin: 02/11/19 00:32 Dose: 100 mls/hr Lactulose (Lactulose*) 30 ml PO Q6H PRN PRN Reason: constipation Magnesium Hydroxide (Milk Of Magnesia Liq*) 30 ml PO BID [facility] Last Admin: 02/11/19 07:58 Dose: 30 ml Magnesium Hydroxide (Milk Of Magnesia Liq*) 30 ml PO Q6H PRN PRN Reason: constipation Metformin HCl (Glucophage*) 500 mg PO BID [facility] Last Admin: 02/11/19 07:53 Dose: 500 mg Mometasone Furoate/Formoterol Fumar (Dulera 200/5 Mdi*) 2 puff INH BID [facility]; Protocol Last Admin: 02/11/19 00:02 Dose: 2 puff Multivitamins (Theragran Tab*) 1 tab PO DAILY [facility] Last Admin: 02/11/19 07:54 Dose: 1 tab Pto: Sumatriptan [ (Imitrex] 1 [place]) 1 spray ALT NARE ONCE PRN PRN Reason: MIGRAINE HEADACHE Ondansetron HCl (Zofran Inj*) 4 mg IV Q6H PRN PRN Reason: nausea Oxycodone HCl (Roxycodone Tab*) 10 mg PO Q4H PRN PRN Reason: PAIN - SEVERE Last Admin: 02/11/19 05:58 Dose: 10 mg Oxycodone/Acetaminophen (Percocet 5/325 Tab*) 1 tab PO Q4H PRN PRN Reason: PAIN Oxycodone/Acetaminophen (Percocet 5/325 Tab*) 2 tab PO Q4H PRN PRN Reason: PAIN Last Admin: 02/11/19 03:34 Dose: 2 tab Home Medications: Home Medications Medication Instructions Recorded Confirmed Type Citalopram TAB* [Celexa TAB*] 40 mg PO QAM 07/30/14 02/10/19 History Montelukast Sodium TAB* [Singulair 10 mg PO QPM 07/30/14 02/10/19 History 10 MG TAB*] busPIRone TAB* [Buspar TAB*] 10 mg PO BID 07/30/14 02/10/19 History Albuterol HFA INHALER* [Ventolin 2 puff INH Q4HR PRN 07/20/16 02/10/19 History HFA Inhaler*] Metformin ER (NF) 500 mg PO BID 07/20/16 02/10/19 History Albuterol/Ipratropium NEB.DARON* 1 neb INH Q6H PRN #30 neb.soln 07/21/16 02/10/19 Rx [Duoneb (Albuterol 2.5 MG/Ipratropium 0.5 MG)] Fluticas/Salmet 115/21 HFA(NF) 1 puff INH BID 03/14/18 02/10/19 History [Advair HFA 115/21 (NF)] Omeprazole CAP (NF) [Prilosec CAP* 40 mg PO BID 03/14/18 02/10/19 History 20 MG] Atorvastatin* [Lipitor 20 MG*] 20 mg PO 2100 07/25/18 02/10/19 History Calcium Carbonate/Vitamin D3 1 each PO BID 07/25/18 02/10/19 History [Calcium 500 + Vit D Caplet] Cholecalciferol (Vitamin D3) 3,000 unit PO QAM 07/25/18 02/10/19 History [Vitamin D3] [place]-3 Fatty Acids/Fish Oil [Fish 1 each PO QAM 07/25/18 02/10/19 History Oil 1,000 mg Capsule] SUMAtriptan [Imitrex] 1 spray ALT NARE ONCE PRN 07/25/18 02/10/19 History Docusate CAP* [Colace Cap*] 100 mg PO BID cap 08/08/18 02/10/19 Rx Advil 2 - 4 tab PO BID 01/30/19 02/10/19 History Dulaglutide (NF) [Trulicity (NF)] 0.75 mg SUBCUT WEEKLY 01/30/19 02/10/19 History Allergies: Allergies Allergy/AdvReac Type Severity Reaction Status Date / Time latex Allergy Severe Rash Verified 02/10/19 08:05 morphine Allergy Severe Hives Verified 02/10/19 08:05 Sulfa (Sulfonamide Allergy Severe Hives Verified 02/10/19 08:05 Antibiotics) Adhesive Tape Allergy Intermediate Rash Verified 02/10/19 08:05 Influenza Virus Vaccines Allergy Rash And Verified 02/10/19 08:05 Itching hydrocodone AdvReac Hallucinati Verified 02/10/19 08:05 ons ENVIRONMENTAL/SEASONAL Allergy SNEEZING, Uncoded 02/10/19 08:05 ALLERGY WATERY ITCHY EYES, RUNNY NOSE trazadone Allergy Unknown Uncoded 02/10/19 08:05 Reaction Details Objective - Vital Signs Vital Signs: Vital Signs 02/10/19 02/10/19 02/10/19 12:14 12:16 12:21 Temperature 97.3 F Pulse Rate 107 108 Respiratory 20 Rate Blood Pressure 165/90 (mmHg) O2 Sat by Pulse 97 100 Oximetry 02/10/19 02/10/19 02/10/19 12:26 12:31 12:39 Temperature Pulse Rate 101 99 Respiratory 15 18 22 Rate Blood Pressure 170/71 165/72 (mmHg) O2 Sat by Pulse 99 97 Oximetry 02/10/19 02/10/19 02/10/19 12:46 12:56 13:00 Temperature Pulse Rate 98 93 Respiratory 9 16 Rate Blood Pressure 166/70 (mmHg) O2 Sat by Pulse 98 96 Oximetry 02/10/19 02/10/19 02/10/19 13:01 13:05 13:12 Temperature Pulse Rate 92 Respiratory 20 20 Rate Blood Pressure 159/70 (mmHg) O2 Sat by Pulse 95 98 Oximetry 02/10/19 02/10/19 02/10/19 13:16 13:18 13:31 Temperature Pulse Rate 92 94 Respiratory 20 Rate Blood Pressure 157/63 154/73 (mmHg) O2 Sat by Pulse 97 96 97 Oximetry 02/10/19 02/10/19 02/10/19 13:46 14:15 14:48 Temperature 98.2 F Pulse Rate 93 94 Respiratory 16 16 Rate Blood Pressure 154/58 125/50 (mmHg) O2 Sat by Pulse 89 97 Oximetry 02/10/19 02/10/19 02/10/19 14:58 15:21 16:17 Temperature 98.6 F 98.0 F Pulse Rate 91 89 Respiratory 16 16 16 Rate Blood Pressure 139/42 161/57 (mmHg) O2 Sat by Pulse 98 97 Oximetry 02/10/19 02/10/19 02/10/19 16:19 16:50 18:32 Temperature 98.5 F Pulse Rate 100 Respiratory 16 16 16 Rate Blood Pressure 144/57 (mmHg) O2 Sat by Pulse 96 Oximetry 02/10/19 02/10/19 02/10/19 19:40 20:21 20:36 Temperature Pulse Rate 90 Respiratory 16 16 16 Rate Blood Pressure 135/60 (mmHg) O2 Sat by Pulse 96 Oximetry 02/10/19 02/10/19 02/11/19 22:45 23:53 00:01 Temperature 97.9 F Pulse Rate 87 Respiratory 18 18 16 Rate Blood Pressure 133/52 (mmHg) O2 Sat by Pulse 95 Oximetry 02/11/19 02/11/19 02/11/19 02:05 03:22 03:34 Temperature 98.1 F Pulse Rate 94 Respiratory 18 18 16 Rate Blood Pressure 136/55 (mmHg) O2 Sat by Pulse 94 Oximetry 02/11/19 02/11/19 02/11/19 04:42 05:35 05:58 Temperature Pulse Rate 98 Respiratory 16 16 16 Rate Blood Pressure (mmHg) O2 Sat by Pulse 99 Oximetry 02/11/19 02/11/19 02/11/19 07:28 07:41 07:54 Temperature 98.2 F Pulse Rate 89 Respiratory 17 17 16 Rate Blood Pressure 135/50 (mmHg) O2 Sat by Pulse 94 Oximetry - Intake and Output Intake and Output: Intake & Output 02/08/19 02/09/19 02/10/19 02/11/19 11:59 11:59 11:59 11:59 Intake Total 4644 Output Total 2900 Balance 1744 Weight 198 lb Intake: IV Fluids 3159 LR 3159 IVPB 55 ABX - CEFAZOLIN 55 Oral 1430 Output: Urine 1900 Waters 1000 Other: # Bowel Movements 0 ADLs: Meal Record Start: 02/10/19 14: 58 Freq: Status: Active Protocol: Created 02/10/19 14:58 [id number] (Rec: 02/10/19 14:58 [id number] [id number]) Document 02/10/19 18:00 [id number] (Rec: 02/10/19 18:34 [id number] [id number]) Intake and Output Start: 02/10/19 12: 26 Freq: 06,14,2200 Status: Active Protocol: Created 02/10/19 12:33 [id number] (Rec: 02/10/19 12:33 [id number]) Intake and Output Start: 02/10/19 14: 58 Freq: DAILY@0600,1400,2200 Status: Active Protocol: Created 02/10/19 14:58 [id number] (Rec: 02/10/19 14:58 [id number] SSU-C11) Document 02/10/19 19:40 [id number] (Rec: 02/11/19 05:01 [id number] [id number]) Document 02/10/19 23:48 [id number] (Rec: 02/10/19 23:48 [id number] SSU-L03) Document 02/11/19 04:59 [id number] (Rec: 02/11/19 05:00 [id number] SSU-C04) Document 02/11/19 05:24 [id number] (Rec: 02/11/19 05:26 [id number] [id number]) - Physical Exam General Physical Exam Comment: sitting in a recliner, she is warm and well perfused. She is in no distress and is hemodynamically stable General: No Cyanosis, No Anemia, No Jaundice, No Clubbing Lungs and Chest: Yes: Chest Expansion Full, Chest Expansion Symetrica, Percussion Note Resonant, Vessicular Breath Sounds. No: Crackles, Wheezes Heart Rate and Rhythm: Regular Additional Cardiovascular: Yes: Normal Heart Sounds. No: Heart Murmur, Pedal Edema Abdominal Exam: Yes: Soft, Bowel Sounds Present. No: Distention, Abdominal Tenderness Results - Results Lab Results: Laboratory Results - last 24 hr 02/10/19 02/10/19 02/11/19 08:30 14:02 06:52 Hgb 9.2 L Hct 27 L Plt Count 161 MPV 8.4 Sodium Potassium Chloride Carbon Dioxide Anion Gap BUN Creatinine Est GFR ( Amer) Est GFR (Non-Af Amer) BUN/Creatinine Ratio Glucose POC Glucose (mg/dL) 135 H 182 H Calcium 02/11/19 06:52 Hgb Hct Plt Count MPV Sodium 134 L Potassium 4.1 Chloride 102 Carbon Dioxide 26 Anion Gap 6 BUN 12 Creatinine 0.64 Est GFR ( Amer) 108.9 Est GFR (Non-Af Amer) 90.0 BUN/Creatinine Ratio 18.8 Glucose 153 H POC Glucose (mg/dL) Calcium 8.6 Assessment - Problem List Assessment: Patient Problems History of total right hip arthroplasty (Acute) Anxiety disorder (Chronic) Essential hypertension (Chronic) GERD (gastroesophageal reflux disease) (Chronic) History of breast cancer (Chronic) History of intracranial hemorrhage (Chronic) Migraine (Chronic) Obesity, Class II, BMI 35.0-39.9, with comorbidity (see actual BMI) (Chronic) Osteoarthritis of right knee (Chronic) S/P total knee arthroplasty (Chronic 12/13/15) Status post total left knee replacement (Chronic) Type 2 diabetes mellitus (Chronic) Hyperglycemia due to type 2 diabetes mellitus (Chronic) Plan: History of total right hip arthroplasty (Acute) Day 1 post SIVA - she is doing very well. She hopes to mobilize today with PT and if she can manage stairs wants to go home. This is ambitious and she understands if she can't achieve this, she may need to stay a little longer. This is up to Dr. Patel. Anticoagulation/DVT prevention is up to the orthopedic team Type 2 diabetes mellitus (Chronic) Hyperglycemia due to type 2 diabetes mellitus (Chronic) This is well controlled Anxiety disorder (Chronic) She is calm Essential hypertension (Chronic) Her BP is controlled Secondary diagnoses stable: GERD (gastroesophageal reflux disease) (Chronic) stable History of breast cancer (Chronic) History of intracranial hemorrhage (Chronic) Migraine (Chronic) Obesity, Class II, BMI 35.0-39.9, with comorbidity (see actual BMI) (Chronic) Osteoarthritis of right knee (Chronic) S/P total knee arthroplasty (Chronic 12/13/15) Status post total left knee replacement (Chronic) I think she is medically doing very well post-operatively. She is highly motivated to mobilize and become independent. Given her history of TKA this may be more difficult than she anticipates, but if she is safe for discharge surgically, then from my medical point of view I have no objections to discharge.
--- NOTE | 2019-02-11 09:51 | PN ---
Progress Note - Progress Note Date of Service: 02/11/19 SOAP: Subjective: []Patient seen and examined OOB in chair this morning, she is highly motivated, right hip pain is well controlled. Denies CP, SOB, dizziness, nausea. Objective: []General: Appears well, NAD, fully dressed putting on jewelry RLE: Right hip dressing CDI, thigh is soft, DF/PF intact, DP2+, sensation intact to light touch distally Calves supple and nontender without erythema, edema or palpable cords Assessment: [] POD 1 sp Right total hip arthroplasty Plan: []WBAT PT/OT, posterior hip precautions eliquis 2.5 mg po BID After patient works with PT we will together address readiness to DC home vs home tomorrow Will repeat sodium for mild hyponatremia tomorrow, within a few days if DCs home today Vital Signs Temp 98.2 F 02/11/19 07:28 Pulse 92 02/11/19 08:53 Resp 18 02/11/19 08:53 BP 135/50 02/11/19 07:28 Pulse Ox 98 02/11/19 08:53 Intake & Output 02/10/19 02/11/19 02/11/19 18:59 06:59 18:59 Intake Total 3060 870 1034 Output Total 250 2650 600 Balance 2810 -1780 434 Weight 198 lb Intake: IV Fluids 2500 659 LR 2500 659 IVPB 55 ABX - CEFAZOLIN 55 Oral 560 870 320 Output: Urine 1900 600 Waters 250 750 Other: # Bowel Movements 0 Laboratory Last Values Hgb 9.2 g/dL (12.0-16.0) L 02/11/19 06:52 Hct 27 % (35-47) L 02/11/19 06:52 Plt Count 161 10^3/uL (150-450) 02/11/19 06:52 MPV 8.4 fL (7.4-10.4) 02/11/19 06:52 Sodium 134 mmol/L (135-145) L 02/11/19 06:52 Potassium 4.1 mmol/L (3.5-5.0) 02/11/19 06:52 Chloride 102 mmol/L (101-111) 02/11/19 06:52 Carbon Dioxide 26 mmol/L (22-32) 02/11/19 06:52 Anion Gap 6 mmol/L (2-11) 02/11/19 06:52 BUN 12 mg/dL (6-24) 02/11/19 06:52 Creatinine 0.64 mg/dL (0.51-0.95) 02/11/19 06:52 Est GFR ( Amer) 108.9 (>60) 02/11/19 06:52 Est GFR (Non-Af Amer) 90.0 (>60) 02/11/19 06:52 BUN/Creatinine Ratio 18.8 (8-20) 02/11/19 06:52 Glucose 153 mg/dL (70-100) H 02/11/19 06:52 POC Glucose (mg/dL) 182 mg/dL (70-100) H 02/10/19 14:02 Calcium 8.6 mg/dL (8.6-10.3) 02/11/19 06:52
[2019-02-11] MEDS: Atorvastatin* 20 MG TAB PO SCH (20:37)
[2019-02-12] MEDS: oxyCODONE/Acetamin 5/325 MG* TAB PO PRN ×3 (00:37→11:09)
[2019-02-12 07:17] LABS: Hematocrit 27 % (35-47); Hemoglobin 8.9 g/dL (12.0-16.0); Mean Platelet Volume 7.9 fL (7.4-10.4); Platelet Count 173 10^3/uL (150-450)
[2019-02-12] MEDS: Magnesium Hydroxide LIQ* 30 ML UDC PO SCH (07:25)
[2019-02-12] MEDS: Apixaban* 2.5 MG TAB PO SCH (07:25)
[2019-02-12] MEDS: Vitamin THERAPEUTIC TAB PO SCH (07:25)
[2019-02-12] MEDS: oxyCODONE TAB* 5 MG TAB PO PRN (07:25)
[2019-02-12] MEDS: busPIRone TAB* 10 MG PO SCH (07:25)
[2019-02-12] MEDS: Citalopram TAB* 40 MG PO SCH (07:25)
[2019-02-12] MEDS: metFORMIN* 500 MG TAB PO SCH (07:25)
[2019-02-12] MEDS: Docusate CAP* 100 MG PO SCH (07:25)
[2019-02-12] MEDS: Mometasone/Formoter 200/5 MDI INH SCH (07:33)
--- NOTE | 2019-02-12 08:46 | PN ---
Subjective - Subjective Reason for Note: Progress Note History: She felt too "rough" to go home yesterday, but is expecting to leave at 9 am. this morning. She has good pain control. Her appetite has returned. She is requiring some breathing treatment for her asthma - but this is something she does routinely at home. She is feeling like she will be fine. Active Problems: Active Problems History of total right hip arthroplasty (Acute) Z96.641 Anxiety disorder (Chronic) F41.9 Essential hypertension (Chronic) I10 GERD (gastroesophageal reflux disease) (Chronic) K21.9 History of breast cancer (Chronic) Z85.3 History of intracranial hemorrhage (Chronic) Z86.79 Migraine (Chronic) G43.909 Obesity, Class II, BMI 35.0-39.9, with comorbidity (see actual BMI) (Chronic) E66.01 Osteoarthritis of right knee (Chronic) M17.9 S/P total knee arthroplasty (Chronic 12/13/15) Z96.659 Status post total left knee replacement (Chronic) Z96.652 Type 2 diabetes mellitus (Chronic) Current Medications: Current Medications Acetaminophen (Tylenol Tab*) 650 mg PO Q8H PRN PRN Reason: PAIN OR TEMPERATURE Albuterol (Ventolin Hfa Inhaler*) 2 puff INH Q4HR PRN PRN Reason: SOB/WHEEZING Last Admin: 02/11/19 01:42 Dose: 2 puff Albuterol/Ipratropium (Duoneb (Albuterol 2.5 Mg/Ipratropium 0.5 Mg)) 1 neb INH Q6H PRN PRN Reason: SOB/WHEEZING Last Admin: 02/11/19 04:39 Dose: 1 neb Apixaban (Eliquis*) 2.5 mg PO BID [facility] Last Admin: 02/12/19 07:25 Dose: 2.5 mg Atorvastatin Calcium (Lipitor*) 20 mg PO 2100 [facility] Last Admin: 02/11/19 20:37 Dose: 20 mg Bisacodyl (Dulcolax Supp*) 10 mg DE DAILY PRN PRN Reason: constipation Buspirone HCl (Buspar Tab*) 10 mg PO BID [facility] Last Admin: 02/12/19 07:25 Dose: 10 mg Citalopram Hydrobromide (Celexa Tab*) 40 mg PO QAM [facility] Last Admin: 02/12/19 07:25 Dose: 40 mg Cyclobenzaprine HCl (Flexeril Tab*) 10 mg PO TID PRN PRN Reason: SPASMS Last Admin: 02/11/19 20:39 Dose: 10 mg Diphenhydramine HCl (Benadryl Iv*) 25 mg IV Q6H PRN PRN Reason: itching Docusate Sodium (Colace Cap*) 100 mg PO BID [facility] Last Admin: 02/12/19 07:25 Dose: 100 mg Hydromorphone HCl (Dilaudid Inj1s*) 0.5 mg IV SLOW PU Q4H PRN PRN Reason: PAIN - BREAKTHROUGH Hydromorphone HCl (Dilaudid Inj1s*) 1 mg IV SLOW PU Q4H PRN PRN Reason: Pain - unrelieved Lactated Ringer's (Lactated Ringers 1000 Ml Bag*) 1,000 mls @ 100 mls/hr IV PER RATE [facility] Last Admin: 02/11/19 00:32 Dose: 100 mls/hr Lactulose (Lactulose*) 30 ml PO Q6H PRN PRN Reason: constipation Magnesium Hydroxide (Milk Of Magnesia Liq*) 30 ml PO BID [facility] Last Admin: 02/12/19 07:25 Dose: 30 ml Magnesium Hydroxide (Milk Of Magnesia Liq*) 30 ml PO Q6H PRN PRN Reason: constipation Metformin HCl (Glucophage*) 500 mg PO BID [facility] Last Admin: 02/12/19 07:25 Dose: 500 mg Mometasone Furoate/Formoterol Fumar (Dulera 200/5 Mdi*) 2 puff INH BID [facility]; Protocol Last Admin: 02/12/19 07:33 Dose: 2 puff Multivitamins (Theragran Tab*) 1 tab PO DAILY [facility] Last Admin: 02/12/19 07:25 Dose: 1 tab Pto: Sumatriptan [ (Imitrex] 1 [place]) 1 spray ALT NARE ONCE PRN PRN Reason: MIGRAINE HEADACHE Ondansetron HCl (Zofran Inj*) 4 mg IV Q6H PRN PRN Reason: nausea Oxycodone HCl (Roxycodone Tab*) 10 mg PO Q4H PRN PRN Reason: PAIN - SEVERE Last Admin: 02/12/19 07:25 Dose: 10 mg Oxycodone/Acetaminophen (Percocet 5/325 Tab*) 1 tab PO Q4H PRN PRN Reason: PAIN Oxycodone/Acetaminophen (Percocet 5/325 Tab*) 2 tab PO Q4H PRN PRN Reason: PAIN Last Admin: 02/12/19 04:55 Dose: 2 tab Home Medications: Home Medications Medication Instructions Recorded Confirmed Type Citalopram TAB* [Celexa TAB*] 40 mg PO QAM 07/30/14 02/10/19 History Montelukast Sodium TAB* [Singulair 10 mg PO QPM 07/30/14 02/10/19 History 10 MG TAB*] busPIRone TAB* [Buspar TAB*] 10 mg PO BID 07/30/14 02/10/19 History Albuterol HFA INHALER* [Ventolin 2 puff INH Q4HR PRN 07/20/16 02/10/19 History HFA Inhaler*] Metformin ER (NF) 500 mg PO BID 07/20/16 02/10/19 History Albuterol/Ipratropium NEB.DARON* 1 neb INH Q6H PRN #30 neb.soln 07/21/16 02/10/19 Rx [Duoneb (Albuterol 2.5 MG/Ipratropium 0.5 MG)] Fluticas/Salmet 115/21 HFA(NF) 1 puff INH BID 03/14/18 02/10/19 History [Advair HFA 115/21 (NF)] Omeprazole CAP (NF) [Prilosec CAP* 40 mg PO BID 03/14/18 02/10/19 History 20 MG] Atorvastatin* [Lipitor 20 MG*] 20 mg PO 2100 07/25/18 02/10/19 History Calcium Carbonate/Vitamin D3 1 each PO BID 07/25/18 02/10/19 History [Calcium 500 + Vit D Caplet] Cholecalciferol (Vitamin D3) 3,000 unit PO QAM 07/25/18 02/10/19 History [Vitamin D3] [place]-3 Fatty Acids/Fish Oil [Fish 1 each PO QAM 07/25/18 02/10/19 History Oil 1,000 mg Capsule] SUMAtriptan [Imitrex] 1 spray ALT NARE ONCE PRN 07/25/18 02/10/19 History Docusate CAP* [Colace Cap*] 100 mg PO BID cap 08/08/18 02/10/19 Rx Advil 2 - 4 tab PO BID 01/30/19 02/10/19 History Dulaglutide (NF) [Trulicity (NF)] 0.75 mg SUBCUT WEEKLY 01/30/19 02/10/19 History Allergies: Allergies Allergy/AdvReac Type Severity Reaction Status Date / Time latex Allergy Severe Rash Verified 02/10/19 08:05 morphine Allergy Severe Hives Verified 02/10/19 08:05 Sulfa (Sulfonamide Allergy Severe Hives Verified 02/10/19 08:05 Antibiotics) Adhesive Tape Allergy Intermediate Rash Verified 02/10/19 08:05 Influenza Virus Vaccines Allergy Rash And Verified 02/10/19 08:05 Itching hydrocodone AdvReac Hallucinati Verified 02/10/19 08:05 ons ENVIRONMENTAL/SEASONAL Allergy SNEEZING, Uncoded 02/10/19 08:05 ALLERGY WATERY ITCHY EYES, RUNNY NOSE trazadone Allergy Unknown Uncoded 02/10/19 08:05 Reaction Details Objective - Vital Signs Vital Signs: Vital Signs 02/11/19 02/11/19 02/11/19 08:53 09:49 10:00 Temperature Pulse Rate 92 Respiratory 18 16 16 Rate Blood Pressure (mmHg) O2 Sat by Pulse 98 Oximetry 02/11/19 02/11/19 02/11/19 11:18 11:47 11:48 Temperature 98.9 F Pulse Rate 97 Respiratory 16 16 16 Rate Blood Pressure 140/55 (mmHg) O2 Sat by Pulse 95 Oximetry 02/11/19 02/11/19 02/11/19 13:50 15:14 15:15 Temperature Pulse Rate Respiratory 16 16 16 Rate Blood Pressure (mmHg) O2 Sat by Pulse Oximetry 02/11/19 02/11/19 02/11/19 16:37 17:04 17:06 Temperature 97.4 F Pulse Rate 94 Respiratory 16 18 18 Rate Blood Pressure 152/54 (mmHg) O2 Sat by Pulse 94 Oximetry 02/11/19 02/11/19 02/11/19 19:47 20:38 20:39 Temperature 98.0 F Pulse Rate 100 Respiratory 16 16 16 Rate Blood Pressure 135/46 (mmHg) O2 Sat by Pulse 95 Oximetry 02/11/19 02/11/1919 20:42 21:58 23:00 Temperature Pulse Rate 99 Respiratory 22 16 16 Rate Blood Pressure (mmHg) O2 Sat by Pulse 95 Oximetry 02/11/19 02/12/19 02/12/19 23:47 00:37 03:29 Temperature 98.5 F 99.4 F Pulse Rate 100 100 Respiratory 18 16 16 Rate Blood Pressure 143/44 141/37 (mmHg) O2 Sat by Pulse 92 92 Oximetry 02/12/19 02/12/19 02/12/19 04:55 07:24 07:25 Temperature 98.4 F Pulse Rate 95 Respiratory 18 17 15 Rate Blood Pressure 131/47 (mmHg) O2 Sat by Pulse 93 Oximetry 02/12/19 02/12/19 07:36 07:41 Temperature Pulse Rate Respiratory 15 Rate Blood Pressure (mmHg) O2 Sat by Pulse 94 Oximetry - Intake and Output Intake and Output: Intake & Output 02/09/19 02/10/19 02/11/19 02/12/19 11:59 11:59 11:59 11:59 Intake Total 4964 1870 Output Total 3500 4450 Balance 1464 -2580 Weight 198 lb Intake: IV Fluids 3159 LR 3159 IVPB 55 ABX - CEFAZOLIN 55 Oral 1750 1870 Output: Urine 2500 3800 Waters 1000 650 Other: # Bowel Movements 0 0 ADLs: Meal Record Start: 02/10/19 14: 58 Freq: Status: Active Protocol: Created 02/10/19 14:58 [id number] (Rec: 02/10/19 14:58 [id number] SSU-C11) Document 02/10/19 18:00 [id number] (Rec: 02/10/19 18:34 [id number] SSU-C19) Document 02/11/19 09:00 [id number] (Rec: 02/11/19 09:19 [id number] SSU-C06) Document 02/11/19 12:42 [id number] (Rec: 02/11/19 12:42 [id number] SSU-C04) Intake and Output Start: 02/10/19 12: 26 Freq: 06,14,2200 Status: Active Protocol: Created 02/10/19 12:33 [id number] (Rec: 02/10/19 12:33 [facility] [id number]) Intake and Output Start: 02/10/19 14: 58 Freq: DAILY@0600,1400,2200 Status: Active Protocol: Created 02/10/19 14:58 [id number] (Rec: 02/10/19 14:58 [id number] SSU-C11) Document 02/10/19 19:40 [id number] (Rec: 02/11/19 05:01 [id number] SSU-C04) Document 02/10/19 23:48 [id number] (Rec: 02/10/19 23:48 [id number] SSU-L03) Document 02/11/19 04:59 [id number] (Rec: 02/11/19 05:00 [id number] SSU-C04) Document 02/11/19 05:24 [id number] (Rec: 02/11/19 05:26 [id number] SSU-L03) Document 02/11/19 09:19 [id number] (Rec: 02/11/19 09:19 [id number] SSU-C06) Document 02/11/19 12:05 [id number] (Rec: 02/11/19 12:05 [id number] SSU-C06) Document 02/11/19 14:00 [id number] (Rec: 02/11/19 14:09 [id number] SSU-C06) Document 02/11/19 15:02 [id number] (Rec: 02/11/19 15:03 [id number] SSU-C12) Document 02/11/19 20:01 [id number] (Rec: 02/11/19 20:02 [id number] SSU-M18) Document 02/11/19 21:36 [id number] (Rec: 02/11/19 21:36 [id number] SSU-M18) Document 02/12/19 00:06 [id number] (Rec: 02/12/19 00:06 [id number] SSU-C03) Document 02/12/19 04:55 [id number] (Rec: 02/12/19 04:55 [id number] SSU-C03) Document 02/12/19 05:23 [id number] (Rec: 02/12/19 05:24 [id number] SSU-C03) Results - Results Lab Results: Laboratory Results - last 24 hr 02/12/19 02/12/19 02/12/19 01:12 07:03 07:03 Hgb 8.9 L Hct 27 L Plt Count 173 MPV 7.9 Sodium 133 L POC Glucose (mg/dL) 123 H Assessment - Problem List Assessment: Patient Problems History of total right hip arthroplasty (Acute) Anxiety disorder (Chronic) Essential hypertension (Chronic) GERD (gastroesophageal reflux disease) (Chronic) History of breast cancer (Chronic) History of intracranial hemorrhage (Chronic) Migraine (Chronic) Obesity, Class II, BMI 35.0-39.9, with comorbidity (see actual BMI) (Chronic) Osteoarthritis of right knee (Chronic) S/P total knee arthroplasty (Chronic 12/13/15) Status post total left knee replacement (Chronic) Type 2 diabetes mellitus (Chronic) Hyperglycemia due to type 2 diabetes mellitus (Chronic) Plan: From a medical point of view she is ready for discharge. Her asthma and diabetes are under control and there are no other acute medical issues.
--- NOTE | 2019-02-12 09:25 | PN ---
Progress Note - Progress Note Date of Service: 02/12/19 SOAP: Subjective: []Pt seen at bedside, she feels well and desires DC home. Right hip pain well controlled. Denies CP, SOB, dizziness, nausea. Objective: [] General: Appears well, NAD RLE: Right hip dressing changed, incision CDI, thigh is soft, DF/PF intact, DP2+ , sensation intact to light touch distally Calves supple and nontender without erythema, edema or palpable cords Assessment: [] POD 2 sp Right total hip arthroplasty Plan: []WBAT PT/OT, posterior hip precautions eliquis 2.5 mg po BID Sodium 133 today, normal diet, repeat by VNS within the next 3 days Vital Signs Temp 98.4 F 02/12/19 07:24 Pulse 95 02/12/19 07:24 Resp 15 02/12/19 07:36 BP 131/47 02/12/19 07:24 Pulse Ox 94 02/12/19 07:41 Intake & Output 02/11/19 02/12/19 02/12/19 18:59 06:59 18:59 Intake Total 1694 1210 Output Total 1999 3050 Balance -306 -1840 Intake: IV Fluids 659 LR 659 IVPB 55 ABX - CEFAZOLIN 55 Oral 980 1210 Output: Urine 1999 2400 [place] 650 Other: # Bowel Movements 0 Laboratory Last Values Hgb 8.9 g/dL (12.0-16.0) L 02/12/19 07:03 Hct 27 % (35-47) L 02/12/19 07:03 Plt Count 173 10^3/uL (150-450) 02/12/19 07:03 MPV 7.9 fL (7.4-10.4) 02/12/19 07:03 Sodium 133 mmol/L (135-145) L 02/12/19 07:03 Potassium 4.1 mmol/L (3.5-5.0) 02/11/19 06:52 Chloride 102 mmol/L (101-111) 02/11/19 06:52 Carbon Dioxide 26 mmol/L (22-32) 02/11/19 06:52 Anion Gap 6 mmol/L (2-11) 02/11/19 06:52 BUN 12 mg/dL (6-24) 02/11/19 06:52 Creatinine 0.64 mg/dL (0.51-0.95) 02/11/19 06:52 Est GFR ( Amer) 108.9 (>60) 02/11/19 06:52 Est GFR (Non-Af Amer) 90.0 (>60) 02/11/19 06:52 BUN/Creatinine Ratio 18.8 (8-20) 02/11/19 06:52 Glucose 153 mg/dL (70-100) H 02/11/19 06:52 POC Glucose (mg/dL) 123 mg/dL (70-100) H 02/12/19 01:12 Calcium 8.6 mg/dL (8.6-10.3) 02/11/19 06:52
--- NOTE | 2019-02-12 09:36 | DS ---
Orthopedic Discharge Summary - Discharge Summary Date of Admission:02/10/19 Date of Discharge: 02/12/19 Date of Surgery: 02/10/19 Attending Orthopedic Provider: Dr Patel Pre-operative Diagnosis: right hip osteoarthritis Operative Procedure: right total hip arthroplasty Condition of Patient: stable History: ADONAY MARTINS is a 79 year old F with years of increasingly severe right hip pain. Patient has failed conservative management and has elected to undergo a right total hip replacement Hospital Course: ADONAY was admitted to [facility] on 02/10/19. Patient underwent a right total hip replacement without complication followed by a brief recovery in PACU and transfer to the Short Stay Surgical Unit in stable condition. Dr Mary, physical therapy and occupational therapy also participated in this patients care. Post-op day 1: patient was alert and in no acute distress. Dressing was clean, dry and intact. Operative extremity dorsiflexion and plantarflexion intact, sensation intact to light touch distally , DP2+. Post-op day two: dressing was changed, incision was clean, dry and intact. Patient was deemed to be medically and orthopedically stable for discharge home. Physical therapy goals were met. Home Medications Medication Instructions Recorded Confirmed Type Citalopram TAB* Celexa TAB* 40 mg PO QAM 07/30/14 02/10/19 History Montelukast Sodium TAB* [Singulair 10 mg PO QPM 07/30/14 02/10/19 History 10 MG TAB*] busPIRone TAB* [Buspar TAB*] 10 mg PO BID 07/30/14 02/10/19 History Albuterol HFA INHALER* [Ventolin 2 puff INH Q4HR PRN 07/20/16 02/10/19 History HFA Inhaler*] Metformin ER (NF) 500 mg PO BID 07/20/16 02/10/19 History Albuterol/Ipratropium NEB.DARON* 1 neb INH Q6H PRN #30 neb.soln 07/21/16 02/10/19 Rx [Duoneb (Albuterol 2.5 MG/Ipratropium 0.5 MG)] Fluticas/Sal[place] 115/21 HFA(NF) 1 puff INH BID 03/14/18 02/10/19 History [Advair HFA 115/21 (NF)] Omeprazole CAP (NF) [Prilosec CAP* 40 mg PO BID 03/14/18 02/10/19 History 20 MG] Atorvastatin* [Lipitor 20 MG*] 20 mg PO 2100 07/25/18 02/10/19 History Calcium Carbonate/Vitamin D3 1 each PO BID 07/25/18 02/10/19 History [Calcium 500 + Vit D Caplet] Cholecalciferol (Vitamin D3) 3,000 unit PO QAM 07/25/18 02/10/19 History [Vitamin D3] [place]-3 Fatty Acids/Fish Oil [Fish 1 each PO QAM 07/25/18 02/10/19 History Oil 1,000 mg Capsule] SUMAtriptan [Imitrex] 1 spray ALT NARE ONCE PRN 07/25/18 02/10/19 History Dulaglutide (NF) [Trulicity (NF)] 0.75 mg SUBCUT WEEKLY 01/30/19 02/10/19 History Acetaminophen TAB* [Tylenol TAB*] 650 mg PO Q8H PRN tab 02/12/19 Rx Apixaban* [Eliquis*] 2.5 mg PO BID #60 tab 02/12/19 Rx Docusate CAP* [Colace Cap*] 100 mg PO BID #90 cap 02/12/19 Rx oxyCODONE/Acetamin 5/325 MG* 1 tab PO Q4H PRN #0 tab MDD 10 02/12/19 Rx [Percocet 5/325 TAB*] oxyCODONE/Acetamin 5/325 MG* 2 tab PO Q4H PRN #70 tab MDD 10 02/12/19 Rx [Percocet 5/325 TAB*] Discharge to home in stable condition on 02/12/19 with VNS Discharge Instructions following Orthopedic Surgery: Activity: * Weight Bearing as tolerated * Continue physical therapy and occupational therapy exercises as shown * Home physical therapy Hip replacements: Continue Hip Precautions- do not cross legs or bend greater than 90 degrees/squat Wound care: * OK to shower on post-op day 3, no bathing, swimming, or submerging wound. * Use gentle soap, pat dry. Cover with gauze, TARAH wrap or tape. * Visiting home nurse to do wound checks. Call Orthopedic office for: * Increased drainage * Redness * Increased pain * Fever Go to ER with shortness of breath or chest pain. Diet: * Regular diet * Increase fluids and fiber to prevent constipation. * Continue to use stool softeners, call office if no bowel motion within 48 hours. Medications See Home Medication List in your packet for medications that you should take after discharge. DVT Prophylaxis: Eliquis Dosin.5 mg, 1 tab every 12 hours x 30 days. This medication increases bleeding tendency Pain Control: Percocet Dosin/325 mg 1-2 tabs by mouth every 4-6 hours as needed for pain. Maximum of 10 tabs per day. Wean off as soon as pain allows. Hold for sedation Please note that Percocet contains Tylenol (acetaminophen). Maximum daily dose of Tylenol is 4000 mg from all sources. Antibiotics are required prior to any dental work. FOLLOW UP: Follow up with [Jorge ] Within 10-14 days, call for appointment Please call our office with any questions or concerns ([phone])
[2019-02-12 12:07] VITALS: BP 153/48
== END 2019-02-12 13:52 | disposition home health service (06) | DRG 470 ==
LOC: AA 07:09 → SSU 12:26
PROVIDERS: ADMIT Orthopaedic Surgery Adult Reconstructive Orthopaedic Surgery; ATTEND Orthopaedic Surgery Adult Reconstructive Orthopaedic Surgery
PROC: 0SR904A Replacement of Right Hip Joint with Ceramic on Polyethylene Synthetic Substitute, Uncemented, Open Approach (ICD-10-PCS; principal; 2019-02-10 09:15)
DX: M16.11 Unilateral primary osteoarthritis, right hip (principal); F32.9 Major depressive disorder, single episode, unspecified; F41.9 Anxiety disorder, unspecified; K21.9 Gastro-esophageal reflux disease without esophagitis; J44.9 Chronic obstructive pulmonary disease, unspecified; Z96.642 Presence of left artificial hip joint; Z96.653 Presence of artificial knee joint, bilateral; E11.65 Type 2 diabetes mellitus with hyperglycemia; E78.00 Pure hypercholesterolemia, unspecified; M81.0 Age-related osteoporosis without current pathological fracture; K11.7 Disturbances of salivary secretion; I10 Essential (primary) hypertension; E66.9 Obesity, unspecified; G43.909 Migraine, unspecified, not intractable, without status migrainosus; J45.20 Mild intermittent asthma, uncomplicated; R41.3 Other amnesia; Z88.5 Allergy status to narcotic agent; Z90.710 Acquired absence of both cervix and uterus; Z68.35 Body mass index [BMI] 35.0-35.9, adult; Z88.2 Allergy status to sulfonamides; Z88.8 Allergy status to other drugs, medicaments and biological substances; Z85.3 Personal history of malignant neoplasm of breast; Z91.040 Latex allergy status; Z83.3 Family history of diabetes mellitus; Z82.3 Family history of stroke; Z82.5 Family history of asthma and other chronic lower respiratory diseases; Z87.891 Personal history of nicotine dependence; Z90.13 Acquired absence of bilateral breasts and nipples; Z98.49 Cataract extraction status, unspecified eye; Z79.84 Long term (current) use of oral hypoglycemic drugs
CPT/HCPCS: 36415; 80048; 84300; 85014; 85018; 85049; 88304; 88311; 94640; A9270-GY; C1713; C1776; G8978-GP-CJ; G8978-GP-CL; G8979-GP-CI; G8987-GO-CJ; G8988-GO-CJ; G8989-GO-CJ; J0330; J0690; J1100; J1240; J1885; J2250; J2405; J2704; J2795; J3010

== ENCOUNTER 2022-10-18 04:40 | Inpatient (IN) ==
[2022-10-18] MEDS ORDERED: Droperidol 5 MG/2 ML 2 ML VIAL IV ONE (04:59)
[2022-10-18] MEDS ORDERED: Prochlorperazine 5 mg/ml 2 ml VIAL (10 mg) IV ONE (06:26)
[2022-10-18 06:38] LABS: Hematocrit 26 % (35-47); Hemoglobin 8.2 g/dL (12.0-16.0); Red Blood Count 4.12 10^6 /uL (3.70-4.87); White Blood Count 10.3 10^3/uL (3.5-10.8)
[2022-10-18 06:49] LABS: Albumin 3.5 g/dL (3.2-5.2); Albumin/Globulin Ratio 1.2 (1-3); C Reactive Protein 5.67 mg/L (<8.01); Calcium 7.9 mg/dL (8.6-10.3); Potassium 3.6 mmol/L (3.5-5.0); Total Bilirubin 0.7 mg/dL (0.2-1.0); Total Protein 6.5 g/dL (6.4-8.9); eGFR CKD-EPI 87.4 (>60)
[2022-10-18] MEDS ORDERED: Ondansetron 4 mg VIAL 2 MG/ML 2 ml VIAL ONE (07:16)
[2022-10-18] MEDS ORDERED: Famotidine IV 10 MG/ML 2 ml VIAL (20 mg) IV SLOW PU ONE (07:24)
[2022-10-18] MEDS ORDERED: Ondansetron 4 mg VIAL 2 MG/ML 2 ml VIAL IV ONE (07:24)
[2022-10-18 07:41] LABS: Anisocytosis 1+; Microcytosis 2+; Target Cells 1+
[2022-10-18 07:43] LABS: Stomatocytes 1+
[2022-10-18 07:44] LABS: ABS Basophils 0.1 10^3/ul (0-0.2); ABS Eosinophils 0.3 10^3/ul (0-0.6); ABS Lymphocytes 3.4 10^3/ul (1.0-4.8); ABS Monocytes 1.1 10^3/ul (0-0.8); ABS Neutrophils 5.5 10^3/ul (1.5-7.7); Eosinophil % 2.7 %; Lymphocyte % 32.4 %; Mean Corpuscular HGB Conc 32 g/dL (31-36); Mean Corpuscular Hemoglobin 20 pg (27-31); Mean Corpuscular Volume 63 fL (80-97); Mean Platelet Volume 6.9 fL (7.4-10.4); Nucleated Red Blood Cells % 0.1; Platelet Count 316 10^3/uL (150-450); Red Cell Distribution Width 18 % (10-15)
[2022-10-18] MEDS ORDERED: Lactated Ringers 1000 ml BAG 1,000 ML IV SCH ×2 (08:00→12:52)
[2022-10-18 08:08] LABS: Urine Appearance Clear; Urine Bilirubin Negative (Negative); Urine Blood Negative (Negative); Urine Color Straw; Urine Glucose 2+(150 mg/dL) (Negative); Urine Ketones Trace (Negative); Urine Nitrite Negative (Negative); Urine Protein Negative (Negative); Urine Urobilinogen Negative (Negative)
[2022-10-18] MEDS ORDERED: Ondansetron 4 mg VIAL 2 MG/ML 2 ml VIAL IV PRN (08:40)
[2022-10-18 08:42] LABS: Magnesium 1.1 mg/dL (1.9-2.7)
[2022-10-18 09:00] LABS: Osmolality Serum 257 mOsm/kg (275-295)
[2022-10-18] MEDS ORDERED: Magnesium Sulf 4 GM/100 ML IV 4,000 MG/100 ML BAG IVPB ONE (09:05)
[2022-10-18] MEDS ORDERED: Fluticas/Salmet 115/21 HFA(NF) MDI INH SCH (10:00)
[2022-10-18] MEDS ORDERED: Labetalol IV 5 MG/ML 20 ml VIAL IV PUSH ONE (10:04)
[2022-10-18] MEDS ORDERED: Metoclopramide 5 MG/ML VIAL (10 mg) IV SLOW PU PRN (10:06)
[2022-10-18] MEDS: Enoxaparin 40 MG/0.4 ML SYR SUBCUT SCH (10:09)
[2022-10-18] MEDS ORDERED: Labetalol IV 5 MG/ML 20 ml VIAL IV PUSH PRN (11:05)
[2022-10-18] MEDS: Albuterol HFA INHALER 8 gm MDI INH PRN ×3 (11:17→23:44)
[2022-10-18] MEDS: CMCS:FLUTICAS/UMECLI/VILANT 100-62.5-25 MDI (NF) INH SCH (11:54)
[2022-10-18 12:43] LABS: eGFR CKD-EPI 89.3 (>60)
[2022-10-18 13:40] LABS: Urine Osmo 213 mOsm/kg (150-1150)
[2022-10-18] MEDS ORDERED: Albuterol 2.5mg/3 ml (0.083%) NEB.SOLN INH PRN (13:47)
[2022-10-18] MEDS: KCL 20 MEQ/100 ML IVPREMIX 20 MEQ/100 ML BAG IV SCH ×3 (13:48→23:02)
[2022-10-18 14:15] LABS: Urine Potassium Concentration 14.3 mmol/L
[2022-10-18 15:25] LABS: High Sensitivity Troponin 1 Hr 8 pg/mL (<15)
[2022-10-18 18:18] LABS: Potassium 4.3 mmol/L (3.5-5.0)
[2022-10-18] MEDS ORDERED: Magnesium Sulfate 2 gm BAG 2 GM/50 ML BAG IVPB ONE (18:20)
[2022-10-18] MEDS ORDERED: NS 0.9% 1000 ml BAG 1,000 ML IV SCH (18:45)
[2022-10-19 01:04] LABS: Calcium 8.4 mg/dL (8.6-10.3); Potassium 4.9 mmol/L (3.5-5.0)
[2022-10-19 01:09] LABS: eGFR CKD-EPI 77.9 (>60)
[2022-10-19] MEDS: Albuterol HFA INHALER 8 gm MDI INH PRN (06:34)
[2022-10-19 07:15] LABS: ABS Eosinophils 0.2 10^3/ul (0-0.6); ABS Lymphocytes 1.6 10^3/ul (1.0-4.8); ABS Monocytes 0.8 10^3/ul (0-0.8); ABS Neutrophils 5.2 10^3/ul (1.5-7.7); Eosinophil % 2.8 %; Hematocrit 26 % (35-47); Hemoglobin 7.9 g/dL (12.0-16.0); Lymphocyte % 20.2 %; Mean Corpuscular HGB Conc 31 g/dL (31-36); Mean Corpuscular Hemoglobin 19 pg (27-31); Mean Corpuscular Volume 63 fL (80-97); Mean Platelet Volume 7.5 fL (7.4-10.4); Nucleated Red Blood Cells % 0.1; Platelet Count 314 10^3/uL (150-450); Red Cell Distribution Width 18 % (10-15); White Blood Count 7.8 10^3/uL (3.5-10.8)
[2022-10-19] MEDS: CMCS:FLUTICAS/UMECLI/VILANT 100-62.5-25 MDI (NF) INH SCH (07:17)
[2022-10-19 07:21] LABS: Calcium 8.4 mg/dL (8.6-10.3); eGFR CKD-EPI 73.3 (>60)
[2022-10-19 07:30] LABS: TSH Ultra Thyroid Stim Horm 1.77 mcIU/mL (0.34-5.60)
[2022-10-19] MEDS ORDERED: NS 0.9% 1000 ml BAG 1,000 ML IV SCH (08:30)
[2022-10-19] MEDS: Enoxaparin 40 MG/0.4 ML SYR SUBCUT SCH (08:52)
[2022-10-19 09:15] LABS: Magnesium 2.4 mg/dL (1.9-2.7)
[2022-10-19] MEDS ORDERED: Dextrose 50% Syringe 50 ml 25 GM/50 ML SYRINGE IV PUSH PRN (09:56)
[2022-10-19 12:35] LABS: Calcium 8.6 mg/dL (8.6-10.3); eGFR CKD-EPI 77.9 (>60)
[2022-10-19 12:39] LABS: Potassium 5.2 mmol/L (3.5-5.0)
[2022-10-19] MEDS ORDERED: SODIUM ZIRCONIUM CYCLOSILICATE 10 GM PACKET PO ONE (16:55)
[2022-10-20 07:33] LABS: Anion Gap 4 mmol/L (2-11); Blood Urea Nitrogen 5 mg/dL (6-24); CO2 Carbon Dioxide 30 mmol/L (22-32); Calcium 8.4 mg/dL (8.6-10.3); Chloride 102 mmol/L (101-111); Glucose 181 mg/dL (70-100); Magnesium 1.9 mg/dL (1.9-2.7); Potassium 4.5 mmol/L (3.5-5.0); Sodium 136 mmol/L (135-145); eGFR CKD-EPI 70.2 (>60)
[2022-10-20] MEDS: CMCS:FLUTICAS/UMECLI/VILANT 100-62.5-25 MDI (NF) INH SCH (07:46)
[2022-10-20] MEDS: Enoxaparin 40 MG/0.4 ML SYR SUBCUT SCH (08:30)
[2022-10-20] MEDS: Albuterol HFA INHALER 8 gm MDI INH PRN (09:41)
[2022-10-20 11:12] LABS: Total Iron Binding Capacity 482 mcg/dL (250-450); Transferrin 344 mg/dL (203-362)
[2022-10-20 11:16] VITALS: BP 151/71
[2022-10-20 11:22] LABS: % Iron Saturation 4 % (15-55); Iron < 20 ug/dL (50-212); Unsaturated Iron Binding 462 ug/dL
== END 2022-10-20 14:45 | disposition home or self-care (01) | DRG 641 ==
LOC: ED 04:40 → EDHOLD 04:40 → MED 10:48 → SUATTDRO 17:41
PROVIDERS: ADMIT Hospitalist; ATTEND Internal Medicine

== ENCOUNTER 2023-09-04 13:01 | Inpatient (IN) ==
[2023-09-04 14:29] LABS: ABS Basophils 0.1 10^3/uL (0.0-0.1); ABS Eosinophils 0.2 10^3/uL (0.0-0.5); ABS Monocytes 0.9 10^3/uL (0.0-0.9); ABS Neutrophils 6.2 10^3/uL (1.5-7.6); ABS Nucleated RBC 0.02 10^3/ul; Hematocrit 25.1 % (35-45); Hemoglobin 7.7 g/dL (11.5-14.3); Lymphocyte % 21.1 %; Mean Corpuscular Hemoglobin 20.1 pg (27-33); Mean Corpuscular Hgb Conc 30.5 g/dL (31-36); Mean Platelet Volume 6.6 fL (7.5-11.2); Nucleated Red Blood Cells % 0.2 %/100WBC (0.0-0.8); Platelet Count 400 10^3/uL (150-450); Red Cell Distribution Width 20.3 % (12-17); White Blood Count 9.4 10^3/uL (3.8-11.8)
[2023-09-04 14:37] LABS: Albumin 3.8 g/dL (3.2-5.2); Albumin/Globulin Ratio 1.1 (1-3); Calcium 8.9 mg/dL (8.6-10.3); Creatinine, Serum 0.87 mg/dL (0.51-0.95); Globulin 3.6 g/dL (2-4); Magnesium 1.6 mg/dL (1.9-2.7); Potassium 3.7 mmol/L (3.5-5.0); Total Bilirubin 0.4 mg/dL (0.2-1.0); Total Protein 7.4 g/dL (6.4-8.9); eGFR CKD-EPI 66.9 (>60)
[2023-09-04] MEDS ORDERED: Iodixanol (CONTRAST) 320 MG/ML 100 ML SDV IV ONE (15:00)
[2023-09-04] MEDS ORDERED: Magnesium Sulfate 2 gm BAG 2 GM/50 ML BAG IVPB ONE (15:36)
[2023-09-04 15:49] LABS: High Sensitivity Troponin 1 Hr 3 pg/mL (<15)
[2023-09-04] MEDS ORDERED: Furosemide 20 mg/2 ml IV VIAL IV ONE (17:37)
[2023-09-04] MEDS ORDERED: Ondansetron 4 mg VIAL 2 MG/ML 2 ml VIAL IV PRN (17:37)
[2023-09-04] MEDS ORDERED: Dextrose 50% Syringe 50 ml 25 GM/50 ML SYRINGE IV PUSH PRN (17:40)
[2023-09-04] MEDS ORDERED: PEG 3000 GI LAVAGE 1 GALLON PO ONE (17:46)
[2023-09-04] MEDS ORDERED: Polyethylene Glycol 3350 BTL 238 GM BTL PO ONE (17:51)
[2023-09-04] MEDS ORDERED: Albuterol 2.5mg/3 ml (0.083%) NEB.SOLN INH PRN (18:15)
[2023-09-04] MEDS: Insulin GLARGINE 100 un/ml 10 ml VIAL SUBCUT SCH (21:11)
[2023-09-04] MEDS: Calcium/Vitamin D TAB 250/125 TAB PO SCH (21:19)
[2023-09-05] MEDS ORDERED: Al Hydrox/Mg Hydrox/Simet LIQ 30 ML UDC PO ONE (04:35)
[2023-09-05 05:38] LABS: Calcium 8.7 mg/dL (8.6-10.3); Creatinine, Serum 0.93 mg/dL (0.51-0.95); Magnesium 1.9 mg/dL (1.9-2.7); Potassium 3.3 mmol/L (3.5-5.0); eGFR CKD-EPI 61.7 (>60)
[2023-09-05 06:07] LABS: Hematocrit 26.6 % (35-45); Hemoglobin 8.4 g/dL (11.5-14.3); Mean Corpuscular Hemoglobin 21.1 pg (27-33); Mean Corpuscular Hgb Conc 31.5 g/dL (31-36); Mean Corpuscular Volume 66.9 fL (80-97); Platelet Count 385 10^3/uL (150-450); Red Blood Count 3.98 10^6/uL (3.63-4.92); Red Cell Distribution Width 21.6 % (12-17); White Blood Count 11.6 10^3/uL (3.8-11.8)
[2023-09-05 06:08] LABS: ABS Eosinophils 0.2 10^3/uL (0.0-0.5); ABS Monocytes 0.9 10^3/uL (0.0-0.9); ABS Neutrophils 8.5 10^3/uL (1.5-7.6); ABS Nucleated RBC 0.02 10^3/ul; Anisocytosis 2+; Eosinophil % 1.6 %; Hypochromasia 1+; Lymphocyte % 16.8 %; Microcytosis 3+; Nucleated Red Blood Cells % 0.1 %/100WBC (0.0-0.8); Polychromasia 1+
[2023-09-05 06:44] LABS: High Sensitivity Troponin 1 Hr 4 pg/mL (<15)
[2023-09-05] MEDS ORDERED: Polyethylene Glycol 3350 BTL 238 GM BTL PO ONE ×2 (08:03→15:13)
[2023-09-05] MEDS ORDERED: Ferric Gluconate IV 250 MG in NS 0.9% 250 ml 200 ML IVPB SCH (09:00)
[2023-09-05] MEDS ORDERED: Ferric Gluconate IV 250 MG in NS 0.9% 100 ml BAG 200 ML IVPB SCH (09:00)
[2023-09-05] MEDS: CMCS:FLUTICAS/UMECLI/VILANT 100-62.5-25 MDI (NF) INH SCH (09:02)
[2023-09-05] MEDS: Vitamin THERAPEUTIC TAB PO SCH (10:22)
[2023-09-05] MEDS: Calcium/Vitamin D TAB 250/125 TAB PO SCH ×2 (10:22→20:02)
[2023-09-05] MEDS: KCL 20 MEQ/100 ML IVPREMIX 20 MEQ/100 ML BAG IV SCH ×2 (10:22→13:18)
[2023-09-05] MEDS: Insulin GLARGINE 100 un/ml 10 ml VIAL SUBCUT SCH (23:33)
[2023-09-06 06:17] LABS: ABS Basophils 0.1 10^3/uL (0.0-0.1); ABS Eosinophils 0.2 10^3/uL (0.0-0.5); ABS Lymphocytes 1.9 10^3/uL (1.0-4.8); ABS Monocytes 0.9 10^3/uL (0.0-0.9); ABS Neutrophils 6.3 10^3/uL (1.5-7.6); ABS Nucleated RBC 0.02 10^3/ul; Eosinophil % 2.3 %; Hematocrit 24.2 % (35-45); Hemoglobin 7.6 g/dL (11.5-14.3); Lymphocyte % 20.4 %; Mean Corpuscular Hemoglobin 21.1 pg (27-33); Mean Corpuscular Hgb Conc 31.7 g/dL (31-36); Mean Corpuscular Volume 66.8 fL (80-97); Nucleated Red Blood Cells % 0.2 %/100WBC (0.0-0.8); Platelet Count 358 10^3/uL (150-450); Red Blood Count 3.62 10^6/uL (3.63-4.92); Red Cell Distribution Width 21.5 % (12-17); White Blood Count 9.4 10^3/uL (3.8-11.8)
[2023-09-06 06:26] LABS: Calcium 8.7 mg/dL (8.6-10.3); Creatinine, Serum 0.77 mg/dL (0.51-0.95); Magnesium 1.9 mg/dL (1.9-2.7); Phosphorus 3.8 mg/dL (2.5-5.0); Potassium 3.8 mmol/L (3.5-5.0); eGFR CKD-EPI 77.4 (>60)
[2023-09-06] MEDS: CMCS:FLUTICAS/UMECLI/VILANT 100-62.5-25 MDI (NF) INH SCH (07:19)
[2023-09-06] MEDS: Ferric Gluconate IV 250 MG in NS 0.9% 250 ml 180 ML IVPB SCH (08:00)
[2023-09-06] MEDS: Calcium/Vitamin D TAB 250/125 TAB PO SCH ×2 (08:03→21:20)
[2023-09-06] MEDS: Vitamin THERAPEUTIC TAB PO SCH (08:03)
[2023-09-06] MEDS ORDERED: Midazolam 10 mg/10 ml VIAL 1 mg/ml 10 ml VIAL (10 mg) ONE (09:09)
[2023-09-06] MEDS ORDERED: fentaNYL 100 mcg/2 ml 50 MCG/ML VIAL ONE (09:10)
[2023-09-06] MEDS ORDERED: Lactated Ringers 1000 ml BAG 1,000 ML IV ONE (11:07)
[2023-09-06] MEDS ORDERED: Midazolam 10 mg/10 ml VIAL 1 mg/ml 10 ml VIAL (10 mg) IV SLOW PU ONE (11:07)
[2023-09-06] MEDS ORDERED: fentaNYL 100 mcg/2 ml 50 MCG/ML VIAL IV SLOW PU ONE (11:07)
[2023-09-06] MEDS: Insulin GLARGINE 100 un/ml 10 ml VIAL SUBCUT SCH (23:21)
[2023-09-07] MEDS: [UNRECOGNIZED DRUG - OTHER] INH SCH (08:28)
[2023-09-07 08:36] LABS: Creatinine, Serum 0.8 mg/dL (0.51-0.95); Magnesium 1.8 mg/dL (1.9-2.7); Potassium 4.1 mmol/L (3.5-5.0)
[2023-09-07 08:40] LABS: Hematocrit 25.6 % (35-45); Hemoglobin 7.8 g/dL (11.5-14.3); Mean Corpuscular Hemoglobin 20.5 pg (27-33); Mean Corpuscular Hgb Conc 30.4 g/dL (31-36); Mean Corpuscular Volume 67.4 fL (80-97); Mean Platelet Volume 6.8 fL (7.5-11.2); Platelet Count 366 10^3/uL (150-450)
[2023-09-07] MEDS: Calcium/Vitamin D TAB 250/125 TAB PO SCH ×2 (10:15→20:39)
[2023-09-07] MEDS: Vitamin THERAPEUTIC TAB PO SCH (10:17)
[2023-09-07] MEDS: Ferric Gluconate IV 250 MG in NS 0.9% 250 ml 180 ML IVPB SCH (12:04)
[2023-09-07] MEDS ORDERED: Insulin GLARGINE 100 un/ml 10 ml VIAL SUBCUT SCH (21:00)
[2023-09-08] MEDS ORDERED: PEG 3000 GI LAVAGE 1 GALLON PO ONE ×2 (08:11→12:56)
[2023-09-08] MEDS: Ferric Gluconate IV 250 MG in NS 0.9% 250 ml 180 ML IVPB SCH (08:28)
[2023-09-08] MEDS: Calcium/Vitamin D TAB 250/125 TAB PO SCH ×2 (08:28→21:30)
[2023-09-08] MEDS: Vitamin THERAPEUTIC TAB PO SCH (08:28)
[2023-09-08] MEDS: [UNRECOGNIZED DRUG - OTHER] INH SCH (08:32)
[2023-09-08] MEDS ORDERED: Polyethylene Glycol 3350 BTL 238 GM BTL PO ONE (09:05)
[2023-09-08 09:26] LABS: Hematocrit 28.1 % (35-45); Hemoglobin 8.5 g/dL (11.5-14.3); Mean Corpuscular Hemoglobin 20.9 pg (27-33); Mean Corpuscular Hgb Conc 30.4 g/dL (31-36); Mean Corpuscular Volume 68.6 fL (80-97); Red Blood Count 4.09 10^6/uL (3.63-4.92); Red Cell Distribution Width 21.9 % (12-17); White Blood Count 15.2 10^3/uL (3.8-11.8)
[2023-09-08 09:52] LABS: Anion Gap 12 mmol/L (2-16); Blood Urea Nitrogen 7 mg/dL (6-24); CO2 Carbon Dioxide 22 mmol/L (22-32); Calcium 8.6 mg/dL (8.6-10.3); Chloride 103 mmol/L (101-111); Creatinine, Serum 0.82 mg/dL (0.51-0.95); Glucose 204 mg/dL (70-100); Magnesium 1.7 mg/dL (1.9-2.7); Sodium 137 mmol/L (135-145); eGFR CKD-EPI 71.8 (>60)
[2023-09-08 10:23] LABS: Platelet Count Platelets clumped. 10^3/uL (150-450)
[2023-09-08] MEDS ORDERED: NS 0.9% 1000 ml BAG 1,000 ML IV SCH (19:15)
[2023-09-08 19:56] LABS: Calcium 9.2 mg/dL (8.6-10.3); Creatinine, Serum 0.85 mg/dL (0.51-0.95); Potassium 3.1 mmol/L (3.5-5.0); eGFR CKD-EPI 68.8 (>60)
[2023-09-08] MEDS ORDERED: Potassium EFFERVES 25 meq TAB PO ONE (21:18)
[2023-09-09 08:38] LABS: Hematocrit 24.1 % (35-45); Hemoglobin 7.5 g/dL (11.5-14.3); Mean Corpuscular Hemoglobin 21.3 pg (27-33); Mean Corpuscular Hgb Conc 31.3 g/dL (31-36); Mean Platelet Volume 6.9 fL (7.5-11.2); Platelet Count 337 10^3/uL (150-450); Red Blood Count 3.54 10^6/uL (3.63-4.92); Red Cell Distribution Width 22.1 % (12-17); White Blood Count 11.9 10^3/uL (3.8-11.8)
[2023-09-09] MEDS: Calcium/Vitamin D TAB 250/125 TAB PO SCH ×2 (09:08→23:01)
[2023-09-09] MEDS: Vitamin THERAPEUTIC TAB PO SCH (09:10)
[2023-09-09 09:44] LABS: Calcium 8.4 mg/dL (8.6-10.3); Creatinine, Serum 0.77 mg/dL (0.51-0.95); Potassium 3.8 mmol/L (3.5-5.0); eGFR CKD-EPI 77.4 (>60)
[2023-09-09 10:02] LABS: Magnesium 1.7 mg/dL (1.9-2.7)
[2023-09-09] MEDS ORDERED: Dextrose 50% Syringe 50 ml 25 GM/50 ML SYRINGE IV PUSH PRN (11:14)
[2023-09-09] MEDS ORDERED: fentaNYL 250 mcg/5 ml 50 MCG/ML 5 ml VIAL (250 MCG) ONE (11:43)
[2023-09-09] MEDS ORDERED: Phenylephrine IV 10 MG/ML 1 ml VIAL ONE (12:30)
[2023-09-09] MEDS ORDERED: Ondansetron 4 mg VIAL 2 MG/ML 2 ml VIAL ONE (12:30)
[2023-09-09] MEDS ORDERED: Lidocaine 2% PF 5 ML VIAL ONE (12:30)
[2023-09-09] MEDS ORDERED: Propofol 10 MG/ML 20 ML BTL ONE (12:30)
[2023-09-09] MEDS ORDERED: Acetaminophen IV 1 GM/100ML 1,000 MG/100 ML BAG IV ONE (12:31)
[2023-09-09] MEDS ORDERED: Midazolam 2 mg/2 ml VIAL 1 mg/ml 2 ml VIAL (2 mg) ONE (12:32)
[2023-09-09] MEDS ORDERED: fentaNYL 100 mcg/2 ml 50 MCG/ML VIAL ONE (12:32)
[2023-09-09] MEDS ORDERED: Rocuronium 50 mg VIAL 10 mg/ml 5 ml VIAL (50 mg) ONE ×2 (12:33→13:07)
[2023-09-09] MEDS ORDERED: HYDROmorphone 0.5 MG/0.5 ML SYRINGE ONE (12:54)
[2023-09-09] MEDS ORDERED: Metoprolol Tartrate 5 mg VIAL 5 ml VIAL (1 mg/ml) ONE (13:38)
[2023-09-09] MEDS ORDERED: Sugammadex 500 MG/5 ML 5 ml VIAL IV PUSH ONE (14:10)
[2023-09-09] MEDS ORDERED: Bupivacaine 0.25% SDV 30 ML ONE (14:23)
[2023-09-09] MEDS: HYDROmorphone 0.5 MG/0.5 ML SYRINGE IV PRN ×2 (18:21→23:13)
[2023-09-09] MEDS: [UNRECOGNIZED DRUG - OTHER] INH SCH (19:41)
[2023-09-09] MEDS ORDERED: Insulin GLARGINE 100 un/ml 10 ml VIAL SUBCUT SCH (21:00)
[2023-09-09] MEDS ORDERED: Dextran 70/Hypromellose Tears Eye Drops 15 ml BTL (for Artificials Tears) BOTH EYES PRN (22:58)
[2023-09-10 06:33] LABS: Hematocrit 27.4 % (35-45); Hemoglobin 8.3 g/dL (11.5-14.3); Mean Corpuscular Hemoglobin 21.3 pg (27-33); Mean Corpuscular Hgb Conc 30.3 g/dL (31-36); Mean Corpuscular Volume 70.2 fL (80-97); Mean Platelet Volume 7.2 fL (7.5-11.2); Platelet Count 337 10^3/uL (150-450); Red Blood Count 3.91 10^6/uL (3.63-4.92); Red Cell Distribution Width 22.3 % (12-17); White Blood Count 11.4 10^3/uL (3.8-11.8)
[2023-09-10 06:40] LABS: Calcium 8.2 mg/dL (8.6-10.3); Creatinine, Serum 0.78 mg/dL (0.51-0.95); Magnesium 1.8 mg/dL (1.9-2.7); Potassium 4.1 mmol/L (3.5-5.0); eGFR CKD-EPI 76.3 (>60)
[2023-09-10] MEDS: Calcium/Vitamin D TAB 250/125 TAB PO SCH ×2 (08:48→22:06)
[2023-09-10] MEDS: Vitamin THERAPEUTIC TAB PO SCH (08:48)
[2023-09-10] MEDS: [UNRECOGNIZED DRUG - OTHER] INH SCH (11:31)
[2023-09-10] MEDS: Enoxaparin 40 MG/0.4 ML SYR SUBCUT SCH (11:32)
[2023-09-10] MEDS: Insulin GLARGINE 100 un/ml 10 ml VIAL SUBCUT SCH (22:15)
[2023-09-11 07:08] LABS: Hematocrit 24.1 % (35-45); Hemoglobin 7.6 g/dL (11.5-14.3); Mean Corpuscular Hemoglobin 21.9 pg (27-33); Mean Corpuscular Hgb Conc 31.5 g/dL (31-36); Mean Corpuscular Volume 69.4 fL (80-97); Mean Platelet Volume 6.6 fL (7.5-11.2); Platelet Count 317 10^3/uL (150-450); Red Blood Count 3.47 10^6/uL (3.63-4.92); Red Cell Distribution Width 22.9 % (12-17); White Blood Count 8.9 10^3/uL (3.8-11.8)
[2023-09-11 08:02] LABS: Blood Urea Nitrogen 4 mg/dL (6-24); CO2 Carbon Dioxide 28 mmol/L (22-32); Calcium 8.1 mg/dL (8.6-10.3); Chloride 107 mmol/L (101-111); Creatinine, Serum 0.81 mg/dL (0.51-0.95); Glucose 172 mg/dL (70-100); Magnesium 1.7 mg/dL (1.9-2.7); Potassium 3.8 mmol/L (3.5-5.0); Sodium 135 mmol/L (135-145); eGFR CKD-EPI 72.9 (>60)
[2023-09-11] MEDS: Vitamin THERAPEUTIC TAB PO SCH (09:00)
[2023-09-11] MEDS ORDERED: Iron Sucrose 20 MG/ML 5 ML VIAL IV PUSH SCH (09:00)
[2023-09-11] MEDS: Calcium/Vitamin D TAB 250/125 TAB PO SCH ×2 (09:01→21:02)
[2023-09-11] MEDS: Enoxaparin 40 MG/0.4 ML SYR SUBCUT SCH (09:01)
[2023-09-11] MEDS: [UNRECOGNIZED DRUG - OTHER] INH SCH (09:08)
[2023-09-11] MEDS: Iron Sucrose 200 MG in NS 0.9% 100 ml IVPB SCH (10:01)
[2023-09-11] MEDS: Insulin GLARGINE 100 un/ml 10 ml VIAL SUBCUT SCH (21:06)
[2023-09-12] MEDS ORDERED: Dextrose 50% Syringe 50 ml 25 GM/50 ML SYRINGE IV PUSH PRN (01:57)
[2023-09-12 08:02] LABS: Hemoglobin 7.7 g/dL (11.5-14.3); Mean Corpuscular Hemoglobin 21.7 pg (27-33); Mean Corpuscular Hgb Conc 30.8 g/dL (31-36); Mean Corpuscular Volume 70.4 fL (80-97); Mean Platelet Volume 6.8 fL (7.5-11.2); Platelet Count 323 10^3/uL (150-450); Red Blood Count 3.55 10^6/uL (3.63-4.92); Red Cell Distribution Width 24.7 % (12-17)
[2023-09-12 08:15] LABS: Calcium 8.4 mg/dL (8.6-10.3); Creatinine, Serum 0.84 mg/dL (0.51-0.95); Magnesium 1.6 mg/dL (1.9-2.7); Potassium 3.5 mmol/L (3.5-5.0); eGFR CKD-EPI 69.8 (>60)
[2023-09-12] MEDS: Enoxaparin 40 MG/0.4 ML SYR SUBCUT SCH (09:24)
[2023-09-12] MEDS: Calcium/Vitamin D TAB 250/125 TAB PO SCH (09:26)
[2023-09-12] MEDS: Vitamin THERAPEUTIC TAB PO SCH (09:26)
[2023-09-12 09:41] LABS: ABS Basophils 0.1 10^3/uL (0.0-0.1); ABS Eosinophils 0.4 10^3/uL (0.0-0.5); ABS Lymphocytes 1.9 10^3/uL (1.0-4.8); ABS Neutrophils 5.6 10^3/uL (1.5-7.6); ABS Nucleated RBC 0.02 10^3/ul; Anisocytosis 3+; Eosinophil % 4.5 %; Hypochromasia 2+; Lymphocyte % 20.8 %; Microcytosis 2+; Nucleated Red Blood Cells % 0.2 %/100WBC (0.0-0.8); Polychromasia 2+
[2023-09-12] MEDS: Iron Sucrose 200 MG in NS 0.9% 100 ml IVPB SCH (09:52)
[2023-09-12] MEDS: [UNRECOGNIZED DRUG - OTHER] INH SCH (09:54)
[2023-09-12 10:33] VITALS: BP 112/69
== END 2023-09-12 16:08 | disposition home or self-care (01) | DRG 330 ==
LOC: ED 13:01 → SUATTDRO 17:37 → EDHOLD 17:37 → MEDTELE 09-05 13:21 → SSU 09-09 17:14
PROVIDERS: ADMIT Internal Medicine; ATTEND Hospitalist